=== PATIENT | female | born 1950 | race Caucasian/White ===

== ENCOUNTER 2019-08-29 17:55 | Inpatient (IN) | payer OTHER ==
[~2019-08-29] VITALS: Ht 170.2 cm; Wt 76.5 kg
[~2019-08-29 17:55] MED LIST: ALEN70 PO; Augmentin 875-1 EACH PO; Bactrim Ds Tab1 EACH PO; CYAN1000I; CYAN500 PO; CYCL0.05OP BOTHEYES; Cleocin HCl300 MG PO; DIALYVITE 800-1 EACH; FEROSUL325 MG PO; FISH1000 PO; FURO40 PO; Flecainide Acet50 MG; GENTEAL TEARS1 EACH BOTHEYES; LEVSOD25 PO; MERIBIN5 M1 PO; POTCHL20ER PO; Percocet 5-3251 EACH PO; SUPER CALCIUM1 EACH PO; Tylenol325 MG PO; VITAMIN D350 MCG PO; Vitamin C100 MG PO; WARF5; XARELTO20 MG; XARELTO20 MG PO; [UNRECOGNIZED DRUG - OTHER]; [UNRECOGNIZED DRUG - OTHER] PO
[2019-08-29 18:31] LABS: BASOPHILS ABSOLUTE AUTO 0.03 K/mm3 (0.00-0.23); BASOPHILS PERCENT AUTO 0 % (0-2); EOSINOPHILS ABSOLUTE AUTO 0.02 K/mm3 (0.00-0.68); EOSINOPHILS PERCENT AUTO 0 % (0-6); Hematocrit 26.8 % (33.0-51.0); Hemoglobin 8.8 g/dL (11.5-16.0); IMMATURE GRAN ABSOLUTE AUTO 0.03 K/mm3 (0.00-0.10); IMMATURE GRAN PERCENT AUTO 0 % (0-1); LYMPHOCYTES ABSOLUTE AUTO 1.43 K/mm3 (0.84-5.20); LYMPHOCYTES PERCENT AUTO 14 % (21-46); MONOCYTES ABSOLUTE AUTO 0.65 K/mm3 (0.16-1.47); MONOCYTES PERCENT AUTO 7 % (4-13); Mean Corpuscular HGB 33.1 pg (26.0-34.0); Mean Corpuscular HGB Conc 32.8 g/dL (31.5-36.5); Mean Corpuscular Volume 101 fL (80-100); NEUTROPHILS ABSOLUTE AUTO 7.76 K/mm3 (1.96-9.15); NEUTROPHILS PERCENT AUTO 78 % (41-73); Platelet Count 336 K/mm3 (150-400); RDW Coefficient Variation 14.5 % (11.7-14.2); RDW Standard Deviation 52.5 fL (35.1-46.3); Red Blood Cell Count 2.66 M/mm3 (3.80-5.20); White Blood Cell Count 9.92 K/mm3 (4.00-11.30)
[2019-08-29 18:52] LABS: Albumin, Blood 2.5 g/dL (3.4-5.0); Albumin/Globulin Ratio 0.8 (0.8-1.8); Bilirubin, Total 0.9 mg/dL (0.1-1.0); Bun/Creatinine Ratio 11.9 (12.0-20.0); Calcium, Blood 7.4 mg/dL (8.5-10.1); Creatinine, Blood 1.43 mg/dL (0.40-1.00); Globulin, Blood 3.1 g/dL (2.2-4.0); Potassium, Blood 3.4 mmol/L (3.5-5.5); Total Protein, Blood 5.6 g/dL (6.4-8.2)
[2019-08-29 20:35] LABS: International Normalized Ratio No Calc
[2019-08-29 20:36] LABS: Prothrombin Time Results >90.0 Sec (9.7-11.5)
[2019-08-29] MEDS ORDERED: KRILL OIL 3501 EACH PO (21:51)
[2019-08-29] MEDS ORDERED: Super B-50 Com1 EACH PO (21:51)
[2019-08-29] MEDS ORDERED: MELATONIN5 M1 PO (21:52)
[2019-08-29] MEDS ORDERED: IBUP600 (23:06)
[2019-08-29] MEDS ORDERED: ACET325 PO (23:07)
--- NOTE | 2019-08-30 03:59 | NUR ---
ASSUMED CARE OF PATIENT AT APPROXIMATELY 2255 FROM ED KEMAL OSEUGERA. PATIENT ARRIVED TO UNIT VIA STRETCHER; TRANSFER FROM ED STRETCHER TO PCU STRETCHER WITH SLIDE SHEET AND FOUR STAFF. PATIENT ALERT AND ORIENTED X4; WEAK. TAY HAS HEMATOMA ON LEFT LEG; SEE PHOTOS IN CHART; BRUSING AND BANDAGE ON CHIN; REPORTS SEVERAL STITCHES PLACED BEFORE ARRIVAL TO ED AND ABRASION ON LEFT KNEE; SEE PHOTOS. PATIENT REPORTS PAIN 5-7/10; MEDICATED PER EMAR. PATIENT REPORTS PAIN IS TOLERABLE WHEN SHE IS NOT GOLD OR SHAKING FROM BEING COLD. 4TH UNIT OF [facility] INFUSING; HOME HEALTH CARE WORKER DIANE AND KEMAL Bhatti ASSISTED WITH HANGING AND DOCUMENTING ADMINISTRATION. 1X PIV. PATIENT REPORTS SOME MILD DIFFICULTY SWALLOWING SINCE FALL. PATIENT REPORTS HER GLANDS IN HER NECK AND BEEN SWOLLEN OFF AND ON FOR THE PAST 1.5 MONTHS. PATIENT REPORTS SHE IS NORMALLY INDEPENDENT AT HOME; CAREGIVER WORK. USING A WALKER SINCE FALL YESTERDAY. AFIB ON TELE; OXYGEN SATURATION ABOVE 90% ON ROOM AIR. PATIENT REPORTS BLOOD PRESSURE NORMALLY LOW. ADMISSION COMPLETE. PATIENT CURRENTLY RESTING IN BED; CALL LIGHT IN REACH; BED IN LOWEST POSISTION; BED ALARM ON; WILL CONTINUE TO MONITOR AND ASSESS UNTIL END OF SHIFT.
--- NOTE | 2019-08-30 06:10 | NUR ---
NO ACUTE CHANGES TO REPORT. BLOOD PRESSURE IMPROVED AFTER 4TH FFP. PATIENT SLEPT ABOUT THREE HOURS OFF AND ON; PATIENT HAD NOT URINATED SINCE ARRIVAL; BEDPAN ATTEMPTED; PAD HAD SMALL AMOUNT OF URINE; UNABLE TO VOID ON BEDPAN; PATIENT REPORTS TOO HARD ON HER BUTT. BLADDER SCAN SHOWS 278MLS; PATIENT TO CALL WHEN SHE FEELS SHE NEEDS TO VOID. WILL CONTINUE TO MONITOR AND ASSESS UNTIL END OF SHIFT.
[2019-08-30 06:14] LABS: BASOPHILS ABSOLUTE AUTO 0.01 K/mm3 (0.00-0.23); BASOPHILS PERCENT AUTO 0 % (0-2); EOSINOPHILS ABSOLUTE AUTO 0.07 K/mm3 (0.00-0.68); EOSINOPHILS PERCENT AUTO 1 % (0-6); Hematocrit 20.2 % (33.0-51.0); Hemoglobin 6.6 g/dL (11.5-16.0); IMMATURE GRAN ABSOLUTE AUTO 0.05 K/mm3 (0.00-0.10); IMMATURE GRAN PERCENT AUTO 1 % (0-1); LYMPHOCYTES PERCENT AUTO 18 % (21-46); MONOCYTES ABSOLUTE AUTO 0.45 K/mm3 (0.16-1.47); MONOCYTES PERCENT AUTO 7 % (4-13); Mean Corpuscular HGB 33.3 pg (26.0-34.0); Mean Corpuscular HGB Conc 32.7 g/dL (31.5-36.5); Mean Corpuscular Volume 102 fL (80-100); Mean Platelet Volume 10.2 fL (9.1-12.4); NEUTROPHILS ABSOLUTE AUTO 4.92 K/mm3 (1.96-9.15); NEUTROPHILS PERCENT AUTO 74 % (41-73); Platelet Count 235 K/mm3 (150-400); RDW Coefficient Variation 14.4 % (11.7-14.2); RDW Standard Deviation 52.5 fL (35.1-46.3); Red Blood Cell Count 1.98 M/mm3 (3.80-5.20)
[2019-08-30 06:27] LABS: International Normalized Ratio 1.36
--- NOTE | 2019-08-30 06:33 | NUR ---
CALLED DR. DAMON TO REPORTS HEMOGLOBIN DROP FROM 8.8 TO 6.6; ORDERS FOR 2 UNIT RBC; HOLD OFF ON RESTARTING LASIX AT THIS TIME. WILL CONTINUE TO MONITOR AND ASSESS UNTIL END OF SHIFT.
[2019-08-30 06:34] LABS: Calcium, Blood 7.3 mg/dL (8.5-10.1); Creatinine, Blood 1.33 mg/dL (0.40-1.00); Potassium, Blood 3.3 mmol/L (3.5-5.5)
--- NOTE | 2019-08-30 08:07 | NUR ---
pt laying in bed awake, talkative, some confusion noted, was speaking about her sister having prostate cancer, but when we talked about it, she realized what she said and changed it to pancreatic cancer, follows commands well, states her leg hurts when she moves it, but it is ok right now. lungs are clear t/o, resp even and unlabored, no cough noted, hrirr, tele in place running afib per monitor, see strip, 3+ edema noted to left foot, soft, she reports it always swells from an old injury, large hematoma noted to left goodman, with small dressing in place, chin also has a hematoma, iv to left ac, site is clear and patent, btx4, abd flat soft nontender, voids without diff, skin as noted, rob mccatrhy, call light in reach.
--- NOTE | 2019-08-30 13:30 | NUR ---
PT DOING OK, RECIEVING TRANSFUSION, TOLERATING WELL. NO COMPLAINTS. DOES RUN A LOW GRADE TEMP BUT HEATER IN ROOM IS ON HIGH, AND SHE HAS SEVERAL BLANKETS. CALL LIGHT IN REACH.
--- NOTE | 2019-08-30 15:45 | NUR ---
PT COMPLAINING ABOUT NECK PAIN. SHE REQUESTED TYLENOL, ALSO GAVE HER A ROLLED TOWEL FOR COMFORT. CALL LIGHT IN REACH.
[2019-08-30 17:17] LABS: International Normalized Ratio 1.19; Prothrombin Time Results 12.4 Sec (9.7-11.5)
--- NOTE | 2019-08-30 18:14 | NUR ---
PT UP TO BSC, DOING OK, STATES HER NECK PAIN IS MUCH BETTER, DOWN TO A 2/10. NO FURTHER CHANGES, CALL LIGHT IN REACH.
[2019-08-31 04:24] LABS: BASOPHILS ABSOLUTE AUTO 0.03 K/mm3 (0.00-0.23); BASOPHILS PERCENT AUTO 0 % (0-2); EOSINOPHILS ABSOLUTE AUTO 0.08 K/mm3 (0.00-0.68); EOSINOPHILS PERCENT AUTO 1 % (0-6); Hematocrit 27.8 % (33.0-51.0); Hemoglobin 9.2 g/dL (11.5-16.0); IMMATURE GRAN ABSOLUTE AUTO 0.05 K/mm3 (0.00-0.10); IMMATURE GRAN PERCENT AUTO 1 % (0-1); LYMPHOCYTES ABSOLUTE AUTO 1.19 K/mm3 (0.84-5.20); LYMPHOCYTES PERCENT AUTO 15 % (21-46); MONOCYTES PERCENT AUTO 8 % (4-13); Mean Corpuscular HGB 31.7 pg (26.0-34.0); Mean Corpuscular HGB Conc 33.1 g/dL (31.5-36.5); Mean Platelet Volume 10.1 fL (9.1-12.4); NEUTROPHILS ABSOLUTE AUTO 5.95 K/mm3 (1.96-9.15); NEUTROPHILS PERCENT AUTO 75 % (41-73); NRBC ABSOLUTE 0.02 K/mm3 (0.00-0.02); NRBC Auto 0.3 /100 WBC (0.0-0.2); Platelet Count 253 K/mm3 (150-400); RDW Coefficient Variation 18.4 % (11.7-14.2); RDW Standard Deviation 63.7 fL (35.1-46.3)
[2019-08-31 04:33] LABS: Mean Corpuscular Volume 96 fL (80-100)
[2019-08-31 04:40] LABS: International Normalized Ratio 1.11; Prothrombin Time Results 11.7 Sec (9.7-11.5)
--- NOTE | 2019-08-31 05:39 | NUR ---
SHIFT SUMMARY PT RESTING IN ROOM COMFORTABLY AT THIS TIME. NO ACUTE CHANGES IN STATUS T/O NIGHT. TP SLEPT WELL AND DENIED NEEDS T/O NIGHT. PT DENIED ANY CP OR SOB. HEMATOMA NOTED BY PT TO BE MUCH SMALLER THAN PREVIOUS DAY. PT HAS L LEG ELEVATED ON PILLOW TO REDUCE SWELLING. BRUISING NOTED TO CHIN, SUTURE REMAIN WNL. RESP EVEN UNLABORED ON RA W/ SATS >92%. PT ABLE TO GET UP TO BSC W/ SBA. DENIES OTHER NEEDS AT THIS TIME. CALL LIGHT IN REACH.
--- NOTE | 2019-08-31 09:24 | NUR ---
Vilma denies pain this morning, states that she slept very well, and is feeling good after having 2 bowel movements. STates her abdominal distention is still present, but resolving. She ate breakfast with a good appetite. Dr. Caro was here this morning, states to keep watching the left lower extremity and to leave on the taped bandage to avoid any accidental skin tears, to keep skin intact if at all possible. NO plan to evacuate the liquid which is under the skin at this time. Pt states that the swelling of the left lower leg has improved quite quite a bit. She states that she has been able to get up and go to the bedside commode on her own. Dietary consult was ordered after Dr. Mckeon's note was noted.
--- NOTE | 2019-08-31 14:48 | NUR ---
The pt remains without complaints of discomfort or pain. She is on bedrest, with assistance to the bedside commode as needed. She sat up in on the chair for a sponge bath this morning. At this time, left leg is elevated on 2 pillows while in bed, and ice pack to her sore right shoulder for comfort. She states that it is helping.
--- NOTE | 2019-08-31 15:43 | NUR ---
Upon receiving an admit referral for spiritual care, I visit patient. Patient is sitting up in bed and alert. Patient openly shares about the events that led to her hospitalization and how thankful she is for the discoveries that were made that will help her have increased health in the furture. Patient tells me about her careers, her relationship history and her spiritual journey. Patient is strong and resilient. I listen empathically, provide companionship, pastoral newspaper delivery counselor and prayer. Patient responds well and shows signs of restored luisa. I will continue to remain available to patient and family.
[2019-09-01 04:10] LABS: BASOPHILS ABSOLUTE AUTO 0.05 K/mm3 (0.00-0.23); BASOPHILS PERCENT AUTO 1 % (0-2); EOSINOPHILS ABSOLUTE AUTO 0.12 K/mm3 (0.00-0.68); EOSINOPHILS PERCENT AUTO 2 % (0-6); Hematocrit 28.4 % (33.0-51.0); Hemoglobin 9.4 g/dL (11.5-16.0); IMMATURE GRAN ABSOLUTE AUTO 0.05 K/mm3 (0.00-0.10); IMMATURE GRAN PERCENT AUTO 1 % (0-1); LYMPHOCYTES ABSOLUTE AUTO 1.27 K/mm3 (0.84-5.20); LYMPHOCYTES PERCENT AUTO 16 % (21-46); MONOCYTES ABSOLUTE AUTO 0.59 K/mm3 (0.16-1.47); MONOCYTES PERCENT AUTO 7 % (4-13); Mean Corpuscular HGB 32.2 pg (26.0-34.0); Mean Corpuscular HGB Conc 33.1 g/dL (31.5-36.5); Mean Corpuscular Volume 97 fL (80-100); Mean Platelet Volume 10.5 fL (9.1-12.4); NEUTROPHILS ABSOLUTE AUTO 5.85 K/mm3 (1.96-9.15); NEUTROPHILS PERCENT AUTO 74 % (41-73); Platelet Count 261 K/mm3 (150-400); RDW Coefficient Variation 17.1 % (11.7-14.2); RDW Standard Deviation 60.3 fL (35.1-46.3); Red Blood Cell Count 2.92 M/mm3 (3.80-5.20); White Blood Cell Count 7.93 K/mm3 (4.00-11.30)
[2019-09-01 04:25] LABS: International Normalized Ratio 1.08; Prothrombin Time Results 11.4 Sec (9.7-11.5)
--- NOTE | 2019-09-01 05:58 | NUR ---
SHIFT SUMMARY PT SLEEPING IN ROOM COMFORTABLY AT THIS TIME. NO ACUTE CNAHGES IN STATUS T/O NIGHT. PT SLEPT WELL, DENIED ANY CP OR SB T/O NIGHT. RESP EVEN UNLABORED ON RA W/ SATS >92%. PT L LEG ELEVATED ON PILLOW TO REDUCE SWELLING. HEMATOMA ON L LEG HAD REDUCED IN SIZE SIGNIFICANTLY OVER TWO NIGHTS. PT DID C/O SOME TENDERNESS TO RIGHT HEEL D/T USING R FOOT TO PUSH OFF OF BED AND MOVE HERSELF. HEEL PROTECTOR PLACED, D/T SOME REDNESS NOTED TO AREA. PT DENIES OTHER NEEDS. CALL LIGHT IN REACH
[2019-09-01] MEDS ORDERED: XARELTO20 MG PO (08:29)
--- NOTE | 2019-09-01 10:00 | NUR ---
REPORT FROM FABIEN SOMMER. ASSUMED PT CARE.
--- NOTE | 2019-09-01 10:54 | NUR ---
TELE REMOVED AND RETURNED. IV TO RIGHT FA REMOVED, TIP INTACT, DRESSING PLACED.
--- NOTE | 2019-09-01 11:11 | NUR ---
Patient is sitting up in bed and alert and welcomes me into the room. I provide companionship and prayer. Patient responds well and displays evidence of restored luisa as she talks about increasing her prayers and returning to roman catholic. I will continue to remain available to patient and family.
--- NOTE | 2019-09-01 12:42 | NUR ---
PT DC HOME WITH . REVIEWED INSTRUCTIONS, ALL BELONGINGS GATHERED AND SENT HOME. PT ESCORTED TO LOBBY VIA .
== END 2019-09-01 12:48 | disposition home or self-care (01) | DRG 813 ==
LOC: ER 17:55 → PCU 21:15
PROVIDERS: Emergency Medicine; Hospitalist; Internal Medicine Hematology & Oncology; ADMIT Family Medicine
PROC: 30233L1 Transfusion of Nonautologous Fresh Plasma into Peripheral Vein, Percutaneous Approach (ICD-10-PCS; principal; 2019-08-30)
PROC: 30233N1 Transfusion of Nonautologous Red Blood Cells into Peripheral Vein, Percutaneous Approach (ICD-10-PCS; 2019-08-30)
DX: D68.9 Coagulation defect, unspecified (principal); D62 Acute posthemorrhagic anemia; E87.1 Hypo-osmolality and hyponatremia; S80.12XA Contusion of left lower leg, initial encounter; X58.XXXA Exposure to other specified factors, initial encounter; I48.91 Unspecified atrial fibrillation; N18.3 Chronic kidney disease, stage 3 (moderate); W19.XXXA Unspecified fall, initial encounter; E87.6 Hypokalemia; E03.9 Hypothyroidism, unspecified; Z79.01 Long term (current) use of anticoagulants; Z98.84 Bariatric surgery status
CPT/HCPCS: 36415; 36430; 70450; 70486; 72125; 80048; 80053; 85018; 85025; 85384; 85610; 85730; 86850; 86900; 86901; 86923; 93005; 93010; 96365; 99285-25; A9270; J3430; J3480; P9016; P9059

== ENCOUNTER 2019-09-11 10:41 | Inpatient (IN) | payer OTHER ==
[~2019-09-11] VITALS: Ht 172.7 cm; Wt 81.1 kg
[~2019-09-11 10:41] MED LIST changes: +ACET325 PO; +IBUP600; +KRILL OIL 3501 EACH PO; +MELATONIN5 M1 PO; +Super B-50 Com1 EACH PO
[2019-09-11] MEDS ORDERED: XARELTO20 MG (11:35)
--- NOTE | 2019-09-11 11:43 | NUR ---
PT TRANSEFRRED TO SDS VIA W/C. History, Chart, Medications and Allergies reviewed before start of procedure.Lungs clear T/O to Auscultation. Patient confirms NPO status and agrees with scheduled surgery. Patient States Post-Procedure ride home has been arranged.
--- NOTE | 2019-09-11 12:36 | NUR ---
PT TAKEN TO XRAY BY [employer] [facility]IA [employer].
--- NOTE | 2019-09-11 12:49 | NUR ---
PT RETURNED FROM XRAY.
--- NOTE | 2019-09-11 14:35 | NUR ---
SURGERY WAS DELAYED DUE TO WAITING FOR UPDATED H&P TO ARRIVE THROUGH DEVELOPMENT TECHNICAL LEAD.
[2019-09-11 16:12] LABS: Hematocrit 30.6 % (33.0-51.0); Mean Corpuscular HGB 33.2 pg (26.0-34.0); Mean Corpuscular HGB Conc 32.7 g/dL (31.5-36.5); Mean Platelet Volume 9.6 fL (9.1-12.4); Platelet Count 360 K/mm3 (150-400); RDW Coefficient Variation 17.6 % (11.7-14.2); RDW Standard Deviation 64.8 fL (35.1-46.3); Red Blood Cell Count 3.01 M/mm3 (3.80-5.20); White Blood Cell Count 8.22 K/mm3 (4.00-11.30)
[2019-09-11 16:13] LABS: Mean Corpuscular Volume 102 fL (80-100)
--- NOTE | 2019-09-11 16:27 | NUR ---
PATIENT PERMISSION PATIENT GAVE THIS STUDENT NURSE PERMISSION TO OBSERVE AND PROVIDE CARE ON 09/11/2019 FROM [id number]. FOLLOWED PATIENT FROM OR TO PACU TO SURGICAL FLOOR.
[2019-09-11 16:34] LABS: Bun/Creatinine Ratio 11.8 (12.0-20.0); Calcium, Blood 7.6 mg/dL (8.5-10.1); Creatinine, Blood 1.27 mg/dL (0.40-1.00); Potassium, Blood 2.8 mmol/L (3.5-5.5)
[2019-09-12 04:15] LABS: BASOPHILS ABSOLUTE AUTO 0.01 K/mm3 (0.00-0.23); BASOPHILS PERCENT AUTO 0 % (0-2); EOSINOPHILS PERCENT AUTO 0 % (0-6); Hematocrit 27.5 % (33.0-51.0); Hemoglobin 8.9 g/dL (11.5-16.0); IMMATURE GRAN ABSOLUTE AUTO 0.04 K/mm3 (0.00-0.10); IMMATURE GRAN PERCENT AUTO 1 % (0-1); LYMPHOCYTES PERCENT AUTO 9 % (21-46); MONOCYTES ABSOLUTE AUTO 0.54 K/mm3 (0.16-1.47); MONOCYTES PERCENT AUTO 6 % (4-13); Mean Corpuscular HGB 32.4 pg (26.0-34.0); Mean Corpuscular HGB Conc 32.4 g/dL (31.5-36.5); Mean Corpuscular Volume 100 fL (80-100); Mean Platelet Volume 9.8 fL (9.1-12.4); NEUTROPHILS ABSOLUTE AUTO 7.15 K/mm3 (1.96-9.15); NEUTROPHILS PERCENT AUTO 84 % (41-73); Platelet Count 335 K/mm3 (150-400); RDW Coefficient Variation 17.6 % (11.7-14.2); RDW Standard Deviation 63.4 fL (35.1-46.3); Red Blood Cell Count 2.75 M/mm3 (3.80-5.20); White Blood Cell Count 8.54 K/mm3 (4.00-11.30)
--- NOTE | 2019-09-12 04:26 | NUR ---
SHIFT SUMMARY: PT POD #1 FOR I&D TO LLE. A&O X4. VS WNL- BP ON LOW SIDE, HOWEVER PT STATES THIS IS WNL FOR HER. WOUND VAC IN PLACE WITH FOAM COMPRESSED. DRAINING SEROSANGUINOUS FLUID. SKIN AROUND DRESSING SOFT. PULSES PALPABLE. CAP REFILL WNL. 3+ PITTING EDEMA NOTED TO BLE. PT DENIES N/T. PT WITH MULT BRUISES T/O. PT DENIES NEED FOR PAIN MEDICATION T/O NIGHT. OOB TO BATHROOM WITH SBA ASSIST. VOIDING WELL. AGUSTINA PO. FLUIDS INFUSING PER ORDERS.
[2019-09-12 04:29] LABS: International Normalized Ratio 1.17; Prothrombin Time Results 12.4 Sec (9.7-11.5)
[2019-09-12 04:36] LABS: Calcium, Blood 7.2 mg/dL (8.5-10.1); Creatinine, Blood 1.33 mg/dL (0.40-1.00); Potassium, Blood 3.4 mmol/L (3.5-5.5)
--- NOTE | 2019-09-12 13:56 | NUR ---
Patient is sitting up in bed and alert. Patient tells me that she is glad I came in for a visit. Patient tells me about the procedure that she had and about what the recovery may include going forward. Patient timuro gives me an up date on her sister's coy with cancer. I listen empathically and provide companionship and a calming presence. Other disciplines came in candace's room, so I cut my visit short.
--- NOTE | 2019-09-12 15:50 | NUR ---
AFTER ENTERING ROOM WITH ASSIGNED PRIMARY RN, ASKED PATIENT IF I COULD BE INVOLVED IN HER CARE AND ACCESS HER CHART TO WHICH SHE AGREED
--- NOTE | 2019-09-12 19:28 | NUR ---
SHIFT SUMMARY PT HAS DONE WELL TODAY. WORKED WITH THERAPY. PAIN WELL MANAGED WITH TYLENOL. VAC WNL. VOIDING WELL. EATING/DRINKING WELL. EDEMA SLIGHTLY BETTER.
--- NOTE | 2019-09-13 05:35 | NUR ---
SHIFT SUMMARY: NO ACUTE CHANGES THIS SHIFT. WOUND VAC CDI AND DRAINING SANGUINOUS FLUID. PT REMAINS EDEMATOUS WITH 3-4+ PITTING EDMEA TO BILATERAL FEET. CEFAZOLIN D/C WITH NEW ORDERS FOR ZOSYN. PT ALSO GIVEN VANCO X1. SALINE LOCKED IN BETWEEN ABX. AGUSTINA PO. VOIDING WELL. SBA FOR ALL TRANSFERS. PAIN IS TOLERABLE AND PT DENIES NEED FOR PAIN MEDICATION.
--- NOTE | 2019-09-13 07:20 | NUR ---
Pt awake stated min pain wound vac to goodman stated the bruises have become supervisor polishing to her face offered pain meds pt declined
--- NOTE | 2019-09-13 15:00 | NUR ---
dr العراقي by to see pt wound vac changed to hold off on putting a picc line poss oral meds awaiting cx and consult dr zamorano
--- NOTE | 2019-09-13 15:24 | NUR ---
Patient is lying in bed and alert. Patient openly shares with me about the her current medical issues and how things are coming along. Patient expresses that she is thankful that the infection is not in her bones. Patient talks about her concern going forward with her main concern being that she does not want to be placed in a rehab. facility. 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 We talk about the spiritual life and her thoughts on God. I listen empathically and provide companionship, pastoral rehab/pre vocational counselor and prayer. Patient responds well and voices gratitude for the visit. I will available to patient and family.
--- NOTE | 2019-09-13 17:00 | NUR ---
DR GOMEZ UNAVILABLE FOR INPT CONSULT DR ALDRICH NOTIFIED ALSO CALLED HIS OFFICE UNABLE TO TALK WITH NOÉ BUT TALKED WITH DESK WILL CALL AGAIN IN AM MESSAGE LEFT ON CONSULT LINE WITH DR ALDRICH CELL NUMBER
[2019-09-14] MEDS ORDERED: DOCU100 PO (11:18)
[2019-09-14] MEDS ORDERED: HYDR1TAB94 PO (11:21)
[2019-09-14] MEDS ORDERED: ONDA4ODT MM (11:21)
[2019-09-14] MEDS ORDERED: Florastor250 MG PO (11:22)
[2019-09-14] MEDS ORDERED: AMOCLA875 PO (11:22)
--- NOTE | 2019-09-14 17:01 | NUR ---
DISCHARGE: PACKET PRINTED AND PT EDUCATED BY GILES GURROLA RN. WOUND VAC FOR HOME IN PLACE. PT LEFT UNIT VIA WHEELCHAIR WITH FAMILY.
== END 2019-09-14 14:07 | disposition home or self-care (01) | DRG 863 ==
LOC: ORD 10:41 → ORSCMMR 10:42 → ORD 12:30 → SURS 15:55 → ORD 15:56 → SURS 09-13 12:22
PROVIDERS: Internal Medicine; ADMIT Orthopaedic Surgery
PROC: 0J9P3ZX Drainage of Left Lower Leg Subcutaneous Tissue and Fascia, Percutaneous Approach, Diagnostic (ICD-10-PCS; 2019-09-11)
PROC: 0HCLXZZ Extirpation of Matter from Left Lower Leg Skin, External Approach (ICD-10-PCS; principal; 2019-09-11 12:30)
DX: T81.41XA Infection following a procedure, superficial incisional surgical site, initial encounter (principal); L08.9 Local infection of the skin and subcutaneous tissue, unspecified; S80.12XA Contusion of left lower leg, initial encounter; E87.6 Hypokalemia; I48.91 Unspecified atrial fibrillation; N18.3 Chronic kidney disease, stage 3 (moderate); B95.61 Methicillin susceptible Staphylococcus aureus infection as the cause of diseases classified elsewhere
CPT/HCPCS: 36415; 73590; 80048; 85025; 85027; 85610; 87070; 87075; 87077; 87147; 87186; 87205; 96365; 96366; 96367; 96368; 96376; 97116; 97162; A9270; A9270-GY; G0378; J0690; J1100; J2405; J2543; J2704; J3010; J3370; J7030; J7050; J7120

== ENCOUNTER 2019-11-08 00:35 | Day surgery (SDC) | payer OTHER ==
[~2019-11-08 00:35] MED LIST changes: +AMOCLA875 PO; +DOCU100 PO; -FEROSUL325 MG PO; +Florastor250 MG PO; +HYDR1TAB94 PO; -LEVSOD25 PO; +ONDA4ODT MM; -POTCHL20ER PO; -SUPER CALCIUM1 EACH PO
== END 2019-11-08 22:38 | disposition home or self-care (01) ==
LOC: WOUND 00:35
DX: T81.89XA Other complications of procedures, not elsewhere classified, initial encounter (principal); L97.822 Non-pressure chronic ulcer of other part of left lower leg with fat layer exposed; E03.9 Hypothyroidism, unspecified; N18.9 Chronic kidney disease, unspecified; K76.0 Fatty (change of) liver, not elsewhere classified; Y83.8 Other surgical procedures as the cause of abnormal reaction of the patient, or of later complication, without mention of misadventure at the time of the procedure

== ENCOUNTER 2019-11-15 14:18 | Inpatient (IN) | payer OTHER ==
[~2019-11-15] VITALS: Ht 172.7 cm; Wt 89.5 kg
[2019-11-15 14:59] LABS: BASOPHILS ABSOLUTE AUTO 0.03 K/mm3 (0.00-0.23); BASOPHILS PERCENT AUTO 0 % (0-2); EOSINOPHILS PERCENT AUTO 0 % (0-6); Hematocrit 32.5 % (33.0-51.0); Hemoglobin 10.6 g/dL (11.5-16.0); IMMATURE GRAN ABSOLUTE AUTO 0.07 K/mm3 (0.00-0.10); IMMATURE GRAN PERCENT AUTO 1 % (0-1); LYMPHOCYTES ABSOLUTE AUTO 0.33 K/mm3 (0.84-5.20); LYMPHOCYTES PERCENT AUTO 3 % (21-46); MONOCYTES ABSOLUTE AUTO 0.25 K/mm3 (0.16-1.47); MONOCYTES PERCENT AUTO 2 % (4-13); Mean Corpuscular HGB 32.9 pg (26.0-34.0); Mean Corpuscular HGB Conc 32.6 g/dL (31.5-36.5); Mean Corpuscular Volume 101 fL (80-100); Mean Platelet Volume 10.4 fL (9.1-12.4); NEUTROPHILS ABSOLUTE AUTO 12.72 K/mm3 (1.96-9.15); NEUTROPHILS PERCENT AUTO 95 % (41-73); Platelet Count 387 K/mm3 (150-400); RDW Standard Deviation 58.3 fL (35.1-46.3); Red Blood Cell Count 3.22 M/mm3 (3.80-5.20)
[2019-11-15 15:15] LABS: International Normalized Ratio 1.58; Prothrombin Time Results 16.5 Sec (9.7-11.5)
[2019-11-15 15:28] LABS: Albumin, Blood 1.8 g/dL (3.4-5.0); Albumin/Globulin Ratio 0.4 (0.8-1.8); Bilirubin, Total 0.9 mg/dL (0.1-1.0); Bun/Creatinine Ratio 16.5 (12.0-20.0); Calcium, Blood 8.2 mg/dL (8.5-10.1); Creatinine, Blood 1.82 mg/dL (0.40-1.00); Globulin, Blood 4.3 g/dL (2.2-4.0); Potassium, Blood 3.8 mmol/L (3.5-5.5); Total Protein, Blood 6.1 g/dL (6.4-8.2)
[2019-11-15] MEDS ORDERED: LEVSOD50 PO (15:33)
[2019-11-15] MEDS ORDERED: SUPER CALCIUM1 EACH PO (15:34)
[2019-11-15] MEDS ORDERED: FEROSUL325 MG PO (15:34)
[2019-11-15] MEDS ORDERED: XARELTO20 MG PO (15:36)
[2019-11-15] MEDS ORDERED: SPIRONOLACTONE25 MG PO (15:40)
[2019-11-15] MEDS ORDERED: Bumetanide1 MG PO (15:41)
[2019-11-15] MEDS ORDERED: POTCHL20ER PO (15:42)
[2019-11-15 17:05] LABS: Source, Urine Catheter
[2019-11-15 17:22] LABS: Appearance, Urine Hazy (Clear); Bilirubin, Urine Neg (Neg); Blood, Urine 1+ (Neg); Color, Urine Yellow (P-Yellow); Glucose Qualitative, Urine Neg (Neg); Ketones, Urine Neg (Neg); Leukocyte Esterase, Urine 1+ (Neg); Nitrite, Urine Neg (Neg); Protein, Urine Neg (Neg); Urobilinogen, Urine NORM (Normal)
[2019-11-15 17:30] LABS: Bacteria Many /hpf; Calcium Oxalate Crystals Mod /hpf; Red Blood Cells, Urine 0-2 /hpf (0-2); Squamous Epithelial Cells Few /hpf (Few)
--- NOTE | 2019-11-15 20:00 | NUR ---
ASSUMED PT CARE AT 1945 PT ARRIVED ON UNIT SECONDARY TO SEPSIS WITH HYPOTENSION. LEVOPHED INFUSING VIA CENTRAL LINE TO RIGHT SUBCLAVIAN AT 20MCG/MIN. SBP'S 70'S-80'S. PT ALERT AND ORIENTED AND ABLE TO MAKE NEEDS KNOWN. PT IN AFIB WITH HR 90-100'S. TEMP CLAYTON PROBE PATENT AND DRAINING TO GRAVITY; TMAX 100.4. WOUND VAC PATENT AND RUNNING AT 120MMHG TO LEFT CONDON. PT ORIENTED TO ROOM. NO FAMILY AT BEDSIDE. CALL LIGHT WITHIN REACH.
[2019-11-16 03:55] LABS: Hematocrit 28.1 % (33.0-51.0); Hemoglobin 9.1 g/dL (11.5-16.0); Mean Corpuscular HGB 32.6 pg (26.0-34.0); Mean Corpuscular HGB Conc 32.4 g/dL (31.5-36.5); Mean Corpuscular Volume 101 fL (80-100); Mean Platelet Volume 10.3 fL (9.1-12.4); Platelet Count 407 K/mm3 (150-400); RDW Standard Deviation 59.3 fL (35.1-46.3); Red Blood Cell Count 2.79 M/mm3 (3.80-5.20); White Blood Cell Count 18.26 K/mm3 (4.00-11.30)
[2019-11-16 04:10] LABS: International Normalized Ratio 2.67
[2019-11-16 04:19] LABS: Alanine Aminotransfer (ALT/SGP 28 U/L (12-78); Albumin, Blood 1.5 g/dL (3.4-5.0); Albumin/Globulin Ratio 0.4 (0.8-1.8); Alk Phos 67 U/L (50-136); Anion Gap 7 mmol/L (6-16); Aspartate Aminotrans (AST/SGOT 42 U/L (12-37); Bilirubin, Total 0.7 mg/dL (0.1-1.0); Blood Urea Nitrogen 29 mg/dL (8-24); CO2, Blood 28 mmol/L (21-32); Calcium, Blood 7.1 mg/dL (8.5-10.1); Chloride, Blood 99 mmol/L (98-108); Creatinine, Blood 1.71 mg/dL (0.40-1.00); Globulin, Blood 3.9 g/dL (2.2-4.0); Glomerular Filtration Rate 31 (60-); Glucose, Blood 205 mg/dL (70-99); Potassium, Blood 3.3 mmol/L (3.5-5.5); Sodium, Blood 134 mmol/L (136-145); Total Protein, Blood 5.4 g/dL (6.4-8.2); Vancomycin, Random 9.9 ug/mL
[2019-11-16 04:24] LABS: BAND PERCENT MAN 27 % (0-8); BASOPHILS PERCENT MAN 0 % (0-2); EOSINOPHILS PERCENT MAN 0 % (0-6); LYMPHOCYTES ABSOLUTE MAN 0.54 K/mm3 (0.84-5.20); LYMPHOCYTES PERCENT MAN 3 % (21-46); METAMYELOCYTE ABSOLUTE MAN 0.18 K/mm3 (0.00-0.00); METAMYELOCYTE PERCENT MAN 1 % (0-0); MONOCYTES ABSOLUTE MAN 0.36 K/mm3 (0.16-1.47); MONOCYTES PERCENT MAN 2 % (4-13); NEUTROPHILS ABSOLUTE MAN 17.16 K/mm3 (1.96-9.15); SEG NEUTROPHILS PERCENT MAN 67 % (41-73); TOTAL CELLS COUNTED 100
--- NOTE | 2019-11-16 06:30 | NUR ---
END OF SHIFT SUMMARY PT REMAINS ON LEVOPHED AT 17MCG/MIN AND VASOPRESSIN AT 0.04UNITS/MIN. SBP'S 80-90'S WITH MAP'S GREATER THAN 60 MMHG. CENTRAL LINE TO RIGHT SUBCLAVIAN. PT REMAINS ALERT AND ORIENTED AND ABLE TO MAKE HER NEEDS KNOWN. PT HAS HAD THREE LOOSE STOOLS THIS SHIFT; SENT C.DIFF PER ORDERS AND RESULTS CAME BACK NEGATIVE. PT IS INCONTINENT OF STOOL AND HAS A CLAYTON CATHETER PATENT AND DRAINING TO GRAVITY; DARK, JAYA IN COLOR. PT REMAINS VERY EDEMATOUS TO BILATERAL LOWER LEGS; 3+ PITTING EDEMA. ABDOMEN IS VERY DISTENDED; ASCITES NOTED. OVERALL, PT APPEARS VERY EMACIATED WITH BONY PROMINENCES NOTED TO BACKSIDE. WOUND VAC TO LEFT CONDON CHANGED LAST NIGHT D/T CANNISTER BEING FULL AND PT STATES SHE GETS HER WOUND VAC CHANGED EVERY MWF BY HOME HEALTH; SEE PHOTOS IN CHART. CALL LIGHT WITHIN REACH. WILL CONTINUE TO MONITOR UNTIL REPORT IS HANDED OFF TO ONCOMING RN.
--- NOTE | 2019-11-16 08:43 | NUR ---
BEDSIDE REPORT TAKEN THIS AM. PT SLEEPING, AROUSES TO VOICE. PT INITIALLY DENIED C/O PAIN, BUT THEN LATER C/O BILAT CALF PAIN. PT HAD LEVOPHED GTT AT 17MCG. VANCO STARTED FOR +BLOOD CX. DR BALLARD GIVEN UPDATE. PT'S CALLED AND GIVEN UPDATE. PT INCONTINENT OF LIQUID STOOL. TEAR AT COCCYX NOTED; MEPILEX PAD PLACED. CRACKLES TO BASES NOTED.
--- NOTE | 2019-11-16 17:34 | NUR ---
DR BALLARD CALLED TO REPORT I&O'S FOR SHIFT. U/O 250CC. 500CC NS BOLUS ORDERED. RECTAL TUBE PLACED THIS AM AROUND 0900 FOR LIQUID STOOL. 600CC'S LIQUID STOOL TOTAL FOR SHIFT. MEPILEX REMAINS INTACT OVER COCCYX. LEVOPHED REMAINS AT 17MCG, VASPRESSIN REMIANS AT 0.04UNITS. MAPS >60-65 T/O SHIFT LR STARTED AT 125CC/HR. PT TOLERATING LIQUID TRAY. PT SLEPT MOST OF THE DAY, SHE AWOKE FOR TURNS. SOME MILDLY CONFUSED CONVERSTATION NOTED. 02 REMOVED SATS RUNNING 98-99%. SATS REMAINS >95% ON RA. CENTRAL LINE DRSG CHANGED; SITE CONT'S TO OOZ SLIGHTLY. LEGS REMAIN DUSKY, COOL, TENDER, AND EDEMATOUS. LEGS ELEVATED ON PILLOWS. ORTHO CONSULT CALLED INTO ANSWERING SERVICE FOR LLE CELLULITIS WITH WOUND TO LEFT CONDON; WOUND VAC IN PLACE.
[2019-11-17 04:38] LABS: BASOPHILS ABSOLUTE AUTO 0.01 K/mm3 (0.00-0.23); BASOPHILS PERCENT AUTO 0 % (0-2); EOSINOPHILS ABSOLUTE AUTO 0.03 K/mm3 (0.00-0.68); EOSINOPHILS PERCENT AUTO 0 % (0-6); Hematocrit 26.8 % (33.0-51.0); IMMATURE GRAN PERCENT AUTO 1 % (0-1); LYMPHOCYTES ABSOLUTE AUTO 0.91 K/mm3 (0.84-5.20); LYMPHOCYTES PERCENT AUTO 6 % (21-46); MONOCYTES ABSOLUTE AUTO 0.69 K/mm3 (0.16-1.47); MONOCYTES PERCENT AUTO 5 % (4-13); Mean Corpuscular HGB 33.3 pg (26.0-34.0); Mean Corpuscular HGB Conc 33.6 g/dL (31.5-36.5); Mean Corpuscular Volume 99 fL (80-100); Mean Platelet Volume 9.6 fL (9.1-12.4); NEUTROPHILS ABSOLUTE AUTO 13.14 K/mm3 (1.96-9.15); NEUTROPHILS PERCENT AUTO 88 % (41-73); Platelet Count 255 K/mm3 (150-400); RDW Coefficient Variation 15.9 % (11.7-14.2); RDW Standard Deviation 58.3 fL (35.1-46.3); White Blood Cell Count 14.98 K/mm3 (4.00-11.30)
[2019-11-17 04:54] LABS: International Normalized Ratio 1.6; Prothrombin Time Results 16.7 Sec (9.7-11.5)
[2019-11-17 05:08] LABS: Anion Gap 8 mmol/L (6-16); Blood Urea Nitrogen 27 mg/dL (8-24); Bun/Creatinine Ratio 17.6 (12.0-20.0); CO2, Blood 27 mmol/L (21-32); Chloride, Blood 99 mmol/L (98-108); Creatinine, Blood 1.53 mg/dL (0.40-1.00); Glomerular Filtration Rate 36 (60-); Glucose, Blood 140 mg/dL (70-99); Potassium, Blood 2.4 mmol/L (3.5-5.5); Sodium, Blood 134 mmol/L (136-145); Vancomycin, Random 14.3 ug/mL
--- NOTE | 2019-11-17 05:39 | NUR ---
SHIFT SUMMARY PATIENT DID NOT SLEEP WELL TONIGHT. HAS BECOME CONFUSED, STATES SHE 'HEARS HER COUGHING DOWNSTAIRS,' BUT KNOWS THAT SHE IS IN THE HOSPITAL, SHE IS NOT AT HOME, JUST HEARING HER COUGH. OTHERWISE NO CHANGES. LEVOPHED @ 19 MCG/MIN, VASOPRESSIN RUNNING @ 0.04, LACTATED RINGERS @ 125 MLS/HR. ASSESSMENT IS CHARTED. VSS. NO C/O PAIN. WILL CONTINUE TO MONITOR.
--- NOTE | 2019-11-17 07:47 | NUR ---
ONCOMING NOTE REPORT RECEIVED FROM KEMAL DUMONT. BEDSIDE ROUNDING DONE. PT RESTING IN BED, POSITIONED TO RIGHT SIDE WITH PILLOWS, EYES OPEN. NO S/SX DISTRESS NOTED. PT WITH CENTRAL LINE - LEVOPHED GTT RUNNING AT 19MCG AND VASOPRESSIN GTT RUNNING, AND LR RUNNING AT 125ML/HR. WOUND VAC TO LEFT CONDON. LEFT LEG HOT TO TOUCH, RED. BLE +4 PITTING EDEMA. BLISTER NOTED TO LEFT ANKLE. VSS, SEE FLOWSHEET. CLAYTON CATHETER PATENT AND DRAINING TO GRAVITY. FLEXISEAL PATENT AND DRAINING TO GRAVITY, BURPED THERE WAS GAS BUILDUP NOTED IN COLLECTION BAG. PT WITHOUT ANY NEEDS AT THIS TIME. BED IN LOWEST POSITION, SIDE RAILS RAISED. CALL LIGHT IN REACH. WILL CONT TO MONITOR PT.
--- NOTE | 2019-11-17 11:59 | NUR ---
DR MCGEE UPDATE DR MCGEE UPDATED ON PT STATUS, AWARE OF LOW POTASSIUM. NOTIFIED DR MCGEE THAT PT WAS GIVEN THE 40MEQ KCl IV ORDERED FOLLOWING CRITICALLY LOW POTASSIUM AND THAT THE 40MEQ K-DUR ORDERED BY DR LYNCH WAS GIVEN AFTER THE F/U POTASSIUM LEVEL WAS STILL LOW AT 2.9. PER DR MCGEE ORDERS TO GIVE ADDITIONAL 40MEQ K-DUR NOW. NO FURTHER CHANGES TO PLAN OF CARE. CONTINUE TO TITRATE LEVOPHED DOWN. WILL CONT TO MONITOR PT.
--- NOTE | 2019-11-17 14:18 | NUR ---
DR ALDRICH ROUNDS DR ALDRICH ROUNDED, REMOVED WOUND VAC DRESSING AND ASSESSED SITE. NO CHANGE TO PLAN OF CARE. DR ALDRICH REDRESSED WOUND VAC. PLAN TO CONTINUE ABX ORDERED.
--- NOTE | 2019-11-17 18:50 | NUR ---
SHIFT SUMMARY PT RESTING IN BED. NO S/SX DISTRESS NOTED. PT CONTINUES TO HAVE AUDITORY HALLUCINATIONS WHERE SHE THINKS SHE CAN HEAR HER , PETER. PT DENIES ANY PAIN OR DISCOMFORT UNLESS BEING TURNED FOR REPOSITIONING. PT REFUSED REPOSITIONING TWICE THIS SHIFT, OTHERWISE WAS TURNED FROM LEFT TO RIGHT SIDE FOR PRESSURE RELIEF. NEW MEPILEX DRESSING APPLIED TO COCCYX AFTER PARTIAL BEDBATH GIVEN. FLEXISEAL REMAINS IN PLACE, PATENT AND DRAINING TO GRAVITY. CLAYTON CATHETER REMAINS IN PLACE, PATENT AND DRAINING TO GRAVITY. BLE +4 PITTING EDEMA. LLE WEEPING. BLISTER TO LEFT ANKLE POPPED AND OOZING SEROSANGUINOUS FLUID, NONADHERENT PADS WITH IDRIS WRAP APPLIED PER DR ALDRICH INSTRUCTIONS. WOUND VAC TO LEFT CONDON, NEW DRESSING APPLIED BY DR ALDRICH THIS AFTERNOON REMAINS C/D/I. BLE ELEVATED ON [address] ALDRICH INSTRUCTIONS, SEE ORDERS. PT BP STABLE ON LEVOPHED GTT, TITRATED TO EFFECT. UNABLE TO TITRATE BELOW 15MCG ON LEVOPHED GTT WITHOUT NOTICABLE DROP IN BP. VASOPRESSIN GTT CONTINUES TO RUN PER ORDERS. CENTRAL LINE REMAINS PATENT, DRESSING CHANGED THIS SHIFT. PT WITH DRY COUGH, NONPRODUCTIVE. PT WITH LOW GRADE TEMP ALL SHIFT. BED IN LOWEST POSITION, SIDE RAILS RAISED. CALL LIGHT IN REACH. WILL CONT TO MONITOR PT.
[2019-11-18 03:32] LABS: BASOPHILS ABSOLUTE AUTO 0.01 K/mm3 (0.00-0.23); BASOPHILS PERCENT AUTO 0 % (0-2); EOSINOPHILS ABSOLUTE AUTO 0.05 K/mm3 (0.00-0.68); EOSINOPHILS PERCENT AUTO 0 % (0-6); Hematocrit 25.8 % (33.0-51.0); Hemoglobin 8.5 g/dL (11.5-16.0); IMMATURE GRAN PERCENT AUTO 1 % (0-1); LYMPHOCYTES ABSOLUTE AUTO 0.97 K/mm3 (0.84-5.20); LYMPHOCYTES PERCENT AUTO 9 % (21-46); MONOCYTES ABSOLUTE AUTO 0.57 K/mm3 (0.16-1.47); MONOCYTES PERCENT AUTO 5 % (4-13); Mean Corpuscular HGB 32.8 pg (26.0-34.0); Mean Corpuscular HGB Conc 32.9 g/dL (31.5-36.5); Mean Corpuscular Volume 100 fL (80-100); Mean Platelet Volume 9.7 fL (9.1-12.4); NEUTROPHILS ABSOLUTE AUTO 9.43 K/mm3 (1.96-9.15); NEUTROPHILS PERCENT AUTO 85 % (41-73); Platelet Count 207 K/mm3 (150-400); RDW Coefficient Variation 15.8 % (11.7-14.2); RDW Standard Deviation 58.5 fL (35.1-46.3); Red Blood Cell Count 2.59 M/mm3 (3.80-5.20); White Blood Cell Count 11.13 K/mm3 (4.00-11.30)
[2019-11-18 03:49] LABS: Bun/Creatinine Ratio 17.2 (12.0-20.0); Calcium, Blood 7.3 mg/dL (8.5-10.1); Creatinine, Blood 1.28 mg/dL (0.40-1.00); Potassium, Blood 2.9 mmol/L (3.5-5.5)
--- NOTE | 2019-11-18 06:18 | NUR ---
SHIFT SUMMARY PATIENT SLEPT ALMOST THE ENTIRE NIGHT. NO ISSUES WITH HALLUCINATIONS AT ALL, FULLY ORIENTED TO PERSON, PLACE, TIME, AND SITUATION. URINE OUTPUT REMAINS LOW. ASSESSMENT IS CHARTED. VSS. NO C/O PAIN. WILL CONTINUE TO MONITOR.
--- NOTE | 2019-11-18 07:06 | NUR ---
ONCOMING SHIFT NOTE REPORT RECEIVED FROM KEMAL DUMONT. BEDSIDE ROUNDING DONE. PT RESTING IN BED, EYES CLOSED, AROUSES TO VERBAL STIMULI. PER REPORT PT MORE ORIENTED THROUGH THE NIGHT, NO HALLUCINATIONS. VSS, SEE FLOWSHEET. PER REPORT UNABLE TO TITRATE LEVOPHED BELOW 14MCG MAP WOULD DROP BELOW 65. PT WITHOUT ANY NEEDS AT THIS TIME. BED IN LOWEST POSITION, SIDE RAILS RAISED. CALL LIGHT IN REACH. WILL CONT TO MONITOR PT.
--- NOTE | 2019-11-18 09:27 | NUR ---
DR LYNCH ROUNDS DR LYNCH ROUNDED, UPDATED ON PT STATUS. PER DR LYNCH THERE WAS CONFUSION TO WHAT WAS SUPPOSED TO BE D/C YESTERDAY THE MERREM SHOULD HAVE BEEN AND NOT THE VANCO. ORDERS TO D/C MERREM AND RESTART VANCO PER PHARMACY DOSING. DR LYNCH AWARE OF PT'S LOW POTASSIUM LEVEL AND THAT KCl 40MEQ IV INFUSING NOW BUT THAT YESTERDAY PT REQUIRED THE KCl 40MEQ IV WELL K-DUR 80MEQ PO TO INCREASE POTASSIUM LEVEL, WHICH STILL DROPPED IN AM LABS. ORDERS TO GIVE K-DUR 80MEQ NOW. NO ADDITIONAL CHANGES TO PLAN OF CARE AT THIS TIME. WILL CONT TO MONITOR PT.
--- NOTE | 2019-11-18 09:30 | NUR ---
DR MCGEE ROUNDS DR MCGEE ROUNDED, UPDATED ON PT STATUS. DR MCGEE UPDATED ON CHANGE IN ABX PER DR LYNCH, ORDERS TO WAIT ON RESTARTING VANCO UNTIL HE SPEAKS WITH DR LYNCH. OTHERWISE NO CHANGE IN PLAN OF CARE AT THIS TIME. WILL CONT TO MONITOR PT.
--- NOTE | 2019-11-18 09:41 | NUR ---
K-DUR DOSE PT TO TAKE K-DUR 80MEQ PO FOR LOW POTASSIUM LEVEL. PER SIS, PHARMACIST, K-DUR DOSE SHOULD BE SPREAD OVER 2 HOURS. INSTRUCTIONS TO GIVE K-DUR 40MEQ NOW AND WAIT A COUPLE HOURS BEFORE GIVING REMAINING 40MEQ.
--- NOTE | 2019-11-18 10:35 | NUR ---
LAB DRAW BLOOD DRAWN VIA CENTRAL LINE FOR 10AM LABS, SENT TO LAB.
--- NOTE | 2019-11-18 12:55 | NUR ---
REPORT AND WALKING ROUNDS WITH JORDON SOMMER. ASSUMED PT CARE. NEW ICE WATER PROVIDED TO PT. CALL LIGHT IN REACH.
--- NOTE | 2019-11-18 13:01 | NUR ---
REPORT OFF REPORT GIVEN TO KEMAL GOMEZ. BEDSIDE ROUNDING DONE. JASON TO ASSUME CARE OF PT AT THIS TIME.
--- NOTE | 2019-11-18 14:28 | NUR ---
VS ENTERED AT THIS TIME ERRONEOUS.
--- NOTE | 2019-11-18 14:30 | NUR ---
DECREASED LEVOPHED TO 11MCG/MIN.
--- NOTE | 2019-11-18 15:15 | NUR ---
DR SANCHEZ TO ROOM FOR EVAL. PT ANWERING QUESTIONS. NO NEW ORDERS RECEIVED.
--- NOTE | 2019-11-18 16:07 | NUR ---
DECREASED LEVOPHED TO 9MCG/MIN. PT RESTING. RESP EVEN AND NON LABORED. CALL LIGHT IN REACH.
--- NOTE | 2019-11-18 18:13 | NUR ---
SHIFT SUMMARY PT ALERT AND ORIENTED TO SELF AND PLACE AND SITUATION. PT LEVOPHED DOWN TO 9MCG/MIN, VASOPRESSOR AT 0.04UNIT/MIN. NS AT TKO. PT DENIES PAIN. KLEOPPER ROUNDED, NO NEW ORDERS AT THIS TIME. WOUND VAC DRAINING SCANT DRAINAGE. PT REFUSES TURNS AT TIMES. TOLERATING CLEAR LIQUIDS WELL. RECTAL TUBE DRAINING WELL. CLAYTON PATENT AND DRAINING. LOWER EXTREMITIES STILL SWOLLEN. PLAN TO CONT TO TITRATE PT OFF PRESSORS.
[2019-11-19 03:53] LABS: BASOPHILS ABSOLUTE AUTO 0.01 K/mm3 (0.00-0.23); BASOPHILS PERCENT AUTO 0 % (0-2); EOSINOPHILS ABSOLUTE AUTO 0.07 K/mm3 (0.00-0.68); EOSINOPHILS PERCENT AUTO 1 % (0-6); Hematocrit 27.2 % (33.0-51.0); IMMATURE GRAN ABSOLUTE AUTO 0.05 K/mm3 (0.00-0.10); IMMATURE GRAN PERCENT AUTO 1 % (0-1); LYMPHOCYTES ABSOLUTE AUTO 1.03 K/mm3 (0.84-5.20); LYMPHOCYTES PERCENT AUTO 12 % (21-46); MONOCYTES ABSOLUTE AUTO 0.65 K/mm3 (0.16-1.47); MONOCYTES PERCENT AUTO 8 % (4-13); Mean Corpuscular HGB 32.5 pg (26.0-34.0); Mean Corpuscular HGB Conc 33.1 g/dL (31.5-36.5); Mean Corpuscular Volume 98 fL (80-100); NEUTROPHILS ABSOLUTE AUTO 6.72 K/mm3 (1.96-9.15); NEUTROPHILS PERCENT AUTO 79 % (41-73); Platelet Count 205 K/mm3 (150-400); RDW Coefficient Variation 15.4 % (11.7-14.2); RDW Standard Deviation 55.6 fL (35.1-46.3); Red Blood Cell Count 2.77 M/mm3 (3.80-5.20); White Blood Cell Count 8.53 K/mm3 (4.00-11.30)
[2019-11-19 04:13] LABS: Albumin, Blood 1.6 g/dL (3.4-5.0); Albumin/Globulin Ratio 0.4 (0.8-1.8); Bilirubin, Total 0.6 mg/dL (0.1-1.0); Bun/Creatinine Ratio 18.4 (12.0-20.0); Calcium, Blood 7.4 mg/dL (8.5-10.1); Creatinine, Blood 1.14 mg/dL (0.40-1.00); Globulin, Blood 4.1 g/dL (2.2-4.0); Magnesium, Blood 1.8 mg/dL (1.6-2.4); Potassium, Blood 3.1 mmol/L (3.5-5.5); Total Protein, Blood 5.7 g/dL (6.4-8.2)
--- NOTE | 2019-11-19 07:31 | NUR ---
SHIFT SUMMARY PATIENT SLEPT WELL THROUGH NIGHT. WAS A LITTLE CRANKY ABOUT WAKING TO TURN/REPOSITION, BUT USUALLY IN GOOD MOOD WITH NEXT INTERACTION. WAS ABLE TO TURN VASOPRESSIN OFF, LEVOPHED CURRENTLY @ 10 MCG/MIN. GREAT URINE OUTPUT. ASSESSMENT IS CHARTEC. VSS. NO C/O PAIN. WILL CONTINUE TO MONITOR.
--- NOTE | 2019-11-19 11:04 | NUR ---
Assessment of pt she is flat and slightly confussed having some aching to leg is willing to only take tylenol. will update staff.
--- NOTE | 2019-11-19 19:06 | NUR ---
SHIFT [facility] AT APPROX 0700; COMPLETED ASSESSMENT AND REASSESSMENTS T/O SHIFT. PT RESTING IN BED DURING SHIFT, REPOSITIONED Q2 FOR COMFORT AND PRESSURE ULCER PREVENTION. PT A&Ox3 WITH INTERMITTENT CONFUSION; PT STATES SPOUSE WALKED BY WINDOW THIS AFTERNOON AND WAS SUPPOSED TO STOP TO BLOW KISSES BUT DIDNT; NO ONE OUTSIDE OF WINDOW WHEN RN IN ROOM; SPOUSE CALLED THIS EVENING EXPRESSING CONCERNS REGARDING HER CONFUSION. PT REPORTS LEFT HIP PAIN THIS AM; MEDICATED x1 WITH TYLENOL WITH POSITVE RESULTS. PT DENIES SOB, CHEST PAIN/PRESSURE, NAUSEA AND DIZZINESS T/O SHIFT. MAP GREATER THAN 60 T/O SHIFT, PT STARTED ON LEVO 10 GTT THIS AM, TITRATED TO [address] COLEMAN TO BEDSIDE THIS AM; DRESSING CHANGED TO LEFT FOOT/CONDON. CLAYTON PATENT AND DRAINING. FLEXISEAL IN PLACE. PT RECEIVING IV ANTIBIOTICS AND PO POTASSIUM. EDEMATOUS T/O. WOUND VAC IN PLACE ON LEFT UPPER CONDON; SET TO 120 SUCTION; NO LEAKS NOTED, MINIMAL OUTPUT. BP NOTED; OTHER VSS. NO OTHER ACUTE CHANGES NOTED DURING SHIFT. REPORT GIVEN TO ONCOMING RN.
[2019-11-20 04:49] LABS: Bun/Creatinine Ratio 20.8 (12.0-20.0); Calcium, Blood 7.2 mg/dL (8.5-10.1); Creatinine, Blood 1.06 mg/dL (0.40-1.00); Potassium, Blood 3.5 mmol/L (3.5-5.5)
--- NOTE | 2019-11-20 06:27 | NUR ---
SHIFT SUMMARY PATIENT SLEPT WELL THROUGH NIGHT. ATTEMPTED TO TURN DOWN LEVOPHED, UNSUCESSFUL. OCASSIONALLY C/O PAIN IN LOWER BACK, RELIEVED WITH TURNING AT LEAST EVERY 2 HOURS. STOOL IN RECTAL TUBE IS THICKENING, HOWEVER WILL DRAIN IF MILKED REGULARLY. GREAT URINE OUTPUT. ASSESSMENT IS CHARTED. VSS. WILL CONTINUE TO MONITOR.
--- NOTE | 2019-11-20 09:00 | NUR ---
ASSESSMENT- PT AWAKE, ALERT, COOPERATIVE. C/O FATIGUE, DISCOMFORT WITH ANY MOVEMENT. LUNGS CLEAR DECREASED RIGHT BASE. NO SOB. ATRIAL FIB, SBP 90'S LEVOPHED DECREASED TO 6 MCG/MIN, WILL MONITOR. RSC CENTRAL LINE INTACT. NS TKO. NO N/V. ABDOMEN ROUND, FIRM. UO VIA CLAYTON ADEQUATE. RECTAL TUBE PATENT WITH YELLOW BROWN STOOL. DRSG LEFT UPPER ARM DI. WOUND VAC TO LEFT CONDON DI TO 120 MMHG. IDRIS WRAP TO LEFT LOWER LEG, SMALL OPEN BLISTER LEFT MEDIAL ANKLE. REPOSITIONED. EATING BREAKFAST.
--- NOTE | 2019-11-20 11:32 | NUR ---
DR. ALDRICH HERE-UDPATED. WOUND VAC REMOVED-ASSESSED SITE, PINK TISSUE WITH SCANT DRAINAGE. REAPPLIED WOUND VAC, LARGE LEFT ANKLE AREA WEEPING, BLISTERED-MEPILEX WITHOUT ADHESIVE APPLIED AND IDRIS WRAP. PT TOLERATED WELL. BOTH LOWER LEGS SWOLLEN, REDDENED, EDEMATOUS, PT STATES IMPROVING. LEVOPHED BEING TITRATED DOWN.
--- NOTE | 2019-11-20 15:10 | NUR ---
PT TO CT IN BED WITHOUT PROBLEMS, TOLERATED WELL. MOVES VERY SLOWLY, FATIGUED DECONDITIONED. LIFT TO TRANSFER TO TABLE AND BACK TO BED. HYPOTENSIVE-LEVOPHED NEEDED TO BE INCREASED FOR BP SUPPORT. UO GOOD VIA CLAYTON. RECTAL TUBE INTACT
--- NOTE | 2019-11-20 16:01 | NUR ---
DR. WATERS HERE-ASSESSED PT. SEE ORDERS. BATH DONE. HYPOTENSIVE. LEVOPHED INCREASED. SKIN FRAGILE, EDEMATOUS LOWER BODY, ABDOMEN FIRM, DENIES N/V.
--- NOTE | 2019-11-20 18:43 | NUR ---
PT HAS REMAINED FATIGUED, SLEEPS WHEN UNDISTURBED. AWAKENS EASILY, C/O GENERALIZED DISCOMFORT WITH MOVING. LEVOPHED AT 8 MCG/MIN FOR BP SUPPORT. UO ADEQUATE, RECTAL TUBE DRAINED 600 CC STOOL. DRESSINGS LEFT LEG INTACT
[2019-11-21 03:56] LABS: BASOPHILS ABSOLUTE AUTO 0.03 K/mm3 (0.00-0.23); BASOPHILS PERCENT AUTO 1 % (0-2); EOSINOPHILS PERCENT AUTO 2 % (0-6); Hematocrit 28.9 % (33.0-51.0); Hemoglobin 9.8 g/dL (11.5-16.0); IMMATURE GRAN ABSOLUTE AUTO 0.08 K/mm3 (0.00-0.10); IMMATURE GRAN PERCENT AUTO 1 % (0-1); LYMPHOCYTES ABSOLUTE AUTO 1.05 K/mm3 (0.84-5.20); LYMPHOCYTES PERCENT AUTO 17 % (21-46); MONOCYTES ABSOLUTE AUTO 0.44 K/mm3 (0.16-1.47); MONOCYTES PERCENT AUTO 7 % (4-13); Mean Corpuscular HGB Conc 33.9 g/dL (31.5-36.5); Mean Corpuscular Volume 97 fL (80-100); NEUTROPHILS PERCENT AUTO 73 % (41-73); Platelet Count 287 K/mm3 (150-400); RDW Coefficient Variation 15.2 % (11.7-14.2); RDW Standard Deviation 53.6 fL (35.1-46.3); Red Blood Cell Count 2.97 M/mm3 (3.80-5.20)
[2019-11-21 04:14] LABS: Albumin, Blood 1.4 g/dL (3.4-5.0); Albumin/Globulin Ratio 0.4 (0.8-1.8); Bilirubin, Total 0.3 mg/dL (0.1-1.0); Bun/Creatinine Ratio 18.7 (12.0-20.0); Calcium, Blood 7.7 mg/dL (8.5-10.1); Creatinine, Blood 1.07 mg/dL (0.40-1.00); Globulin, Blood 3.8 g/dL (2.2-4.0); Magnesium, Blood 1.7 mg/dL (1.6-2.4); Phosphorus, Blood 2.7 mg/dL (2.5-4.9); Potassium, Blood 3.3 mmol/L (3.5-5.5); Total Protein, Blood 5.2 g/dL (6.4-8.2)
--- NOTE | 2019-11-21 06:11 | NUR ---
SHIFT SUMMARY PATIENT SLEPT WELL THROUGH NIGHT. NO C/O HALLUCINATIONS, MORE APPROPRIATE TONIGHT THAN LAST SEVERAL NIGHTS. NO C/O PAIN. ELECTROLYTES BEING REPLENISHED PER PROTOCOL. WAS ABLE TO BRING LEVOPHED DRIP DOWN TO 5 MCG/MIN, COULD NOT HANDLE ANY LOWER. GREAT URINE OUTPUT. ASSESSMENT IS CHARTED. VSS. WILL CONTINUE TO MONITOR.
--- NOTE | 2019-11-21 08:04 | NUR ---
ASSESSMENT-PT AWAKE, ALERT, COOPERATIVE. STATES DID SLEEP WELL. MORE TALKATIVE TODAY. STATES SHOULDER BLADES PAINFUL-REPOSTIONED WITH RELIEF. DENIES ANY SOB. RSC CENTRAL LINE INTACT WITH NS TKO, MAGNESIUM REPLACEMENT COMPLETED, K REPLACEMENT INFUSING, NS TKO, LEVOPHED FOR BP SUPPORT AT 5 MCG/MIN, MAP GREATER THAN 60. NO N/V. UO VIA CLAYTON. RECTAL TUBE INTACT WITH SMALL AMOUNT DRAINAGE. GENERALIZED EDEMA FROM FEET TO LOWER BACK. RIGHT LEG WITH 4+ EDEMA, LEGS ELEVATED ON PILLOWS. WOUND VAC TO LEFT CONDON DI. IDRIS WRAP TO LEFT CONDON. SKIN FRAGILE. ABLE TO USE CALL LIGHT, ENCOURAGED ACTIVITY, MOVEMENT
--- NOTE | 2019-11-21 10:14 | NUR ---
STATES POOR APPETITE, WENT THROUGH MENU WITH PT TO TRY TO INCREASE OPTIONS SHE WILL EAT. REFUSED TURN NOW-WANTS TO REST. SBP MARGINAL, LEVOPHED CONTINUES
--- NOTE | 2019-11-21 12:18 | NUR ---
DR. CISNEROS HERE-ASSESSED PT. PLANS TO START MIDIDRINE TO ASSIST WITH DECREASING LEVOPHED. OK FOR PT TO INCREASE ACTIVITY. PT FATIGUED, ENCOURAGING PT TO MOVE IN BED
--- NOTE | 2019-11-21 14:53 | NUR ---
BATH DONE, PT MOVING BETTER. ABLE TO ASSIST TO SIT UP AT EDGE OF BED. DID WELL BUT C/O DIZZINESS WITH SITTING FOR FEW MINUTES. ASSIST BACK TO BED-REPOSITIONED. ABLE TO DECREASE LEVOPHED TO 2 MCG/MIN. RECTAL TUBE UNCOMFORTABLE-DRAINAGE LESS. D/C WITHOUT PROBLEMS. DRSG LEFT ANKLE CHANGED-ALLEVYN APPLIED, IDRIS WRAP. SWELLING LESS LEFT LEG THAN RIGHT-UNCHANGED
--- NOTE | 2019-11-21 16:00 | NUR ---
PT HAS BEEN ABLE TO REST NOW. DENIES COMPLAINTS AT REST. DR. CISNEROS HERE-UPDATED WITH VS. PLANS TO INCREASE DOSE OF MIDODRINE.
--- NOTE | 2019-11-21 17:59 | NUR ---
PT AWAKE, ALERT, COOPERATIVE. REPOSITIONED, INCONTINENT SMALL AMOUNT LIQUID STOOL. TURNING BETTER. HYPOTENSIVE, GIVEN EXTRA DOSE MIDODRINE. WILL CONTINUE TO MONITOR. WOUND VAC LEFT CONDON DI, NO DRAINAGE.
--- NOTE | 2019-11-21 18:32 | NUR ---
SBP LOW, NEED TO INCREASE LEVOPHED. SET UP FOR DINNER. DENIES PAIN. CONTINUE TO MONITOR
--- NOTE | 2019-11-21 18:45 | NUR ---
Initial spiritual care note: Mrs. Bahena admits that she is tired of being sick and hospitalized. She feels like she's "been through hell" since the begining of the year. She claims a strong luisa in God that sustains her. She feels well-supported by family. She is hopeful she will recover and return to her previous [facility]. Prayer for healing provided at her request. I will remain available.
--- NOTE | 2019-11-21 19:38 | NUR ---
ASSUMED CARE OF PT AT 1915. REPORT RECEIVED AT BEDSIDE. PT PRESENTS IN BED. ALERT AND ORIENTED PLEASANT AND COOPERATIVE WITH CARE AND ASSESSMENT. PT IN NO APARENT DISTRESS AT THIS TIME. WILL REVIEW CHART AND PLAN OF CARE FOR THIS PT.
--- NOTE | 2019-11-21 20:40 | NUR ---
ASSUMED CARE OF PT AT 1915. REPORT RECEIVED AT BEDSIDE. PT PRESENTS IN BED. ALERT AND ORIENTED, PLEASANT AND COOPERATIVE WITH CARE AND ASSESSMENT. WOUND VACK TO LEFT LOWER EXTREMITY TO SUCTION WITHOUT S/S LEAK. PT IN NO APPARENT DISTRESS AT THIS TIME. PT HAS SOMEWHAT FLAT AFFECT UPON PRESENTATION. POOR APPETITE, DOES CHOSE TO KEEP SUPPLEMENT AT BEDSIDE. WILL REVIEW CHART AND PLAN OF CARE FOR THIS PT.
--- NOTE | 2019-11-21 23:42 | NUR ---
PT HAS BEEN INCONTINENT TO STOOL. IS NOT ABLE TO STOP INCONTINENCE THOUGH IS ABLE TO KNOW WHEN THIS HAS OCCURRED. PARTIAL BED CHANGE DONE. OF NOTE: EDEMA FROM TOES TO JUST BELOW AXILLA AREA. PT HAS RECEIVED IV DIURETIC. WILL MONITOR FOR AFFECTIVENESS.
--- NOTE | 2019-11-22 03:29 | NUR ---
HAVE BEEN ABLE TO TITRATE LEVOPHED DOWN TO 2 MCG'S/MIN. BLOOD PRESSURES REMAINED WITH MAP > 60. HAS SUBSEQUENTLY HAD DROP IN BLOOD PRESSURES MANDATING TITRATION BACK UP TO 4 MCG'S. PT HAS BEEN MEDICATED WITH 650 MG TYLENOL FOR COMPLAINT OF LEFT HIP PAIN. PT STATES THIS IS AFFECTIVE TO RELIEVE DISCOMFORT. HAS TOLERATED Q 2 HOUR TURNS IN BED. WILL CONTINUE TO MONITOR.
[2019-11-22 04:44] LABS: Magnesium, Blood 2.1 mg/dL (1.6-2.4); Potassium, Blood 3.7 mmol/L (3.5-5.5)
--- NOTE | 2019-11-22 06:30 | NUR ---
LEVOPHED CONTINUES AT 4 MCG'S/MIN. PT'S BLOOD PRESSURE REMAINS WITH MAP > 60. PT HAS BEEN ABLE TO REST SOME THIS NIGHT. AWAKENS VERY EASILY TO ANY NOISE IN ROOM. WOUND VAC REMAINS TO SUCTION W/O S/S LEAK. WILL CONTINUE TO MONITOR PT, AND WILL REPORT OFF TO ONCOMING RN.
--- NOTE | 2019-11-22 09:09 | NUR ---
ASSUMED CARE OF PT AT 0700. BEDSIDE REPORT FROM TRAVIS SOMMER. PT RESTING IN BED. WAKES c VERBAL STIMULI. A&OX3. ANSWERS QUESTIONS APPROPRIATELY. STATES SHE GOT ADEQUATE SLEEP LAST NOC. LUNGS DIMINISHED IN BASES. PT P/W/D. AFIB ON MONITOR. LEVOPHED INFUSING AT 4 MCG/MIN. WILL TITRATE FOR MAP >65. GOAL TO TITRATE OFF. CENTRAL LINE TO R SUBCLAVIAN. WILL CHANGE DRESSING TODAY. ABD FIRM, DISTENDED. BT X 4. MEIPLEX TO COCCXY, LEFT UPPER ARM. IDRIS AND WOUND VAC TO LLE. DRESSINGS C/D/I. 3+ EDEMA TO RLE, 1+ TO LLE. GENERALIZED EDEMA FROM MID BACK TO FEET. CLAYTON PATENT AND DRAINING TO GRAVITY. BEDBATH COMPLETE. PT TOLERATED WELL. UP TO CHAIR. PT INCONTINENT OF STOOL, LOOSE GREEN. PT c IMPROVED APPETITE FOR BREAKFAST, ATE 50%. WILL CONTINUE TO MONITOR.
--- NOTE | 2019-11-22 18:00 | NUR ---
1630: NS INFUSING PER ORDERS, MAP OF 50'S, LEVOPHED RESUMED AT 2MCG WITH GOOD RESULTS, MAP NOW >65. WILL ADMINISTER MIDODRINE PER ORDERS. PT RESTING WITH NO C/O. 1800: PT HAS SLEPT OFF AND ON THIS AFTERNOON, NO AGITATION, NO C/O PAIN. DRESSING TO LEFT ANKLE CDI, WOUND VAC DRESSING INTACT WITH SUCTION AT 120MM/HG. LE'S ELEVATED ON PILLOWS, REMAIN EDEMATOUS. LEVOPHED REMAINS AT 2MCG, NS INFUSING AT 100ML/HR, MAPS REMAIN 60'S, OTHER VSS. PT SITTING UP EATING DINNER, DENIES NEEDS OR C/O AT THIS TIME. NO OBVIOUS HALLUCINATIONS NOTED THIS AFTERNOON.
--- NOTE | 2019-11-22 20:00 | NUR ---
ASSUMPTION OF CARE: ASSUMED CARE FROM FERNIE RN. PATIENT LEVOPHED RUNNING AT 2MCG/MIN WITH A MAP OF 63. ALL SETTINGS VERIFIED WITH FERNIE RN. PATIENT ALERT AND ANSWERING QUESTIONS APPROPRIATLY, INTERMITTENT INAPPROPRIATE/NONSENSICAL STATEMENTS. CALL LIGHT WITHIN REACH AND USED APPROPRIATLY. CENTRAL LINE INTACT, NO ISSUES NOTED, INFUSING. WOUND VAC RUNNING AT 120 AND MEPELEX ON LEFT UPPER ARM AND COCCYX, LEFT ANKLE HAS AN IDRIS BANDAGE WRAP. CLAYTON PATENT AND DRAINING TO GRAVITY.
[2019-11-23 04:00] LABS: BASOPHILS ABSOLUTE AUTO 0.06 K/mm3 (0.00-0.23); BASOPHILS PERCENT AUTO 1 % (0-2); EOSINOPHILS ABSOLUTE AUTO 0.12 K/mm3 (0.00-0.68); EOSINOPHILS PERCENT AUTO 1 % (0-6); Hematocrit 28.2 % (33.0-51.0); Hemoglobin 9.5 g/dL (11.5-16.0); IMMATURE GRAN ABSOLUTE AUTO 0.15 K/mm3 (0.00-0.10); IMMATURE GRAN PERCENT AUTO 2 % (0-1); LYMPHOCYTES ABSOLUTE AUTO 1.18 K/mm3 (0.84-5.20); LYMPHOCYTES PERCENT AUTO 12 % (21-46); MONOCYTES ABSOLUTE AUTO 0.39 K/mm3 (0.16-1.47); MONOCYTES PERCENT AUTO 4 % (4-13); Mean Corpuscular HGB 32.8 pg (26.0-34.0); Mean Corpuscular HGB Conc 33.7 g/dL (31.5-36.5); Mean Corpuscular Volume 97 fL (80-100); Mean Platelet Volume 9.8 fL (9.1-12.4); NEUTROPHILS ABSOLUTE AUTO 7.91 K/mm3 (1.96-9.15); NEUTROPHILS PERCENT AUTO 81 % (41-73); Platelet Count 393 K/mm3 (150-400); RDW Coefficient Variation 15.5 % (11.7-14.2); RDW Standard Deviation 52.9 fL (35.1-46.3); White Blood Cell Count 9.81 K/mm3 (4.00-11.30)
[2019-11-23 04:20] LABS: Bun/Creatinine Ratio 16.3 (12.0-20.0); Calcium, Blood 8.1 mg/dL (8.5-10.1); Creatinine, Blood 1.23 mg/dL (0.40-1.00)
--- NOTE | 2019-11-23 04:30 | NUR ---
SHIFT SUMMARY: PATIENT FREQUENTLY COMPLAINS THAT SHE HAS 'BEEN WAITING FOR HOURS FOR YOU TO FIX MY L2'. MULTIPLE REPOSITIONING COMPLETED, TYLENOL GIVEN X1 IN THE EVENING BUT REFUSED THIS MORNING. PATIENT STATES THAT WE HAVE TO FIX HER L2 NOT GIVE HER MEDICINE OR REPOSITION HER. WOUND VAC DRESSING CHANGED PER MD ORDERS. CENTRAL LINE DRESSING CHANGED 11/21. PATIENT MAP PRESSURE REMIANING IN THE 60'S EVEN THOUGH LEVOPHED INCREASED TO 3. ALL OTHER VSS, CALL LIGHT WITHIN REACH, BED LOW AND LOCKED
--- NOTE | 2019-11-23 08:55 | NUR ---
ASSUMED CARE OF PT AT 0700. BEDSIDE REPORT FROM JULIANA SOMMER. PT RESTING IN BED. WAKES c VERBAL STIMULI. ANSWERS QUESTIONS APPROPRIATELY. FOLLOWS COMMANDS. FLAT AFFECT. C/O POOR NIGHT SLEEP D/T BACK PAIN. REPOSITIONED REQUESTED. LEVOPHED INFUSING AT 3 MCG/MIN. WILL TITRATE FOR MAP >60. GOAL TO D/C LEVOPHED AND CENTRAL LINE. NS INFUSING AT 100 ML/HR. LUNGS DIMINISHED IN BASES. PT P/W/D. ABD FIRM, DISTENDED. BT X 4. CLAYTON PATENT, DRAINING TO GRAVITY. PT CONTINUES TO HAVE 4+ EDEMA TO LOWER EXTREMITIES TO BACK. WOUND VAC TO LLE. PT IRRITABLE c POOR APPETITE. REVIEWED SEVERAL DIETARY CHANGES, PT REFUSING ALL. REFUSING TO SPEAK c POWDER EXPERT, STATES "IT WONT MAKE A DIFFERENCE ANYWAYS." WILL CONTINUE TO MONITOR.
--- NOTE | 2019-11-23 17:37 | NUR ---
SHIFT SUMMARY PT PHYSICAL ASSESSMENT REMAINS UNCHANGED THIS SHIFT. LEVOPHED CONTINUES AT 3 MCG/MIN. CENTRAL LINE REMAINS IN PLACE. LASIX D/C'D AND HOME BUMEX AND SPIROLACTONE STARTED. 300 ML OF JAYA URINE OUT. PT WORKED c PT AND OT TODAY. ENCOURAGED UP TO CHAIR. UP ONCE TODAY. PT CONTINUES TO HAVE SIGNIFICANT EDEMA TO BACK AND LEGS. CONTINUES TO HAVE POOR APPETITE. WILL CONTINUE TO MONITOR UNTIL REPORT TO ONCOMING NURSE.
--- NOTE | 2019-11-23 20:12 | NUR ---
PT APPEARS TO BE SLEEPING ON ENTRY TO ROOM. AROUSES EASILY TO VOICE. ANSWERS QUESTIONS APPROPRIATELY. TAKES PILLS WITH WATER WITHOUT DIFFICULTY. PT CAN ASSIST WITH TURNING. IS INCONTINENT OF STOOL AND LETS RN KNOW WHEN SHE NEEDS CLEANED UP. PT IS EXTREMELY EDEMATOUS T/O. SEE ASSESSMENT.
--- NOTE | 2019-11-24 06:13 | NUR ---
SUMMARY PT RESTING IN BED. NO ACUTE CHANGES THIS SHIFT. CONTINUES TO BE ON 3MCG/MIN OF LEVOPHED. USES CALL LIGHT APPROPRIATELY. NO SIGN OF DISTRESS.
--- NOTE | 2019-11-24 08:00 | NUR ---
INITIAL ASSESSMENT PATIENT ALERT AND ORIENTED X 4, AFEBRILE. PATIENT WITHDRAWN, FLAT AFFECT, COOPERATIVE. PATIENT WEAK, 2 PERSON ASSIST. PATIENT STATES SHE IS DIZZY WHEN SHE STANDS UP. PATIENT DENIES PAIN AT THIS TIME. PATIENT SATTING 90% AND GREATER ON RA. LUNGS CLEAR IN UPPER LOBES AND DIMINISHED IN LOWER LOBES. PATIENT DENIES COUGH. PATIENT IN A.FIB, HR 70S TO 80S. BP STABLE ON LEVOPHED. LEVOPHED AT 4 MCG/ MINUTE. PATIENT ON SCHEDULED MIDODRINE. ATTENDS IN PLACE; PATIENT INCONTINENT OF STOOL. STOOL PASTY AND LIGHT BROWN IN COLOR. ABDOMEN DISTENDED, FIRM, WITH HYPOACTIVE BS NOTED. PATIENT ON CARDIAC DIET; POOR APPETITE. CLAYTON DRAINING DARK YELLOW URINE. SCATTERED BRUISING NOTED. L ANKLE WOUND NOTED- DRESSING C/D/I. MEPILEX TO REDDENED COCCYX. SKIN TEAR TO LUE- DRESSING C/D/I. WOUND VAC TO WOUND ON LLE. ASCITES NOTED. 3+ PITTING EDEMA TO BLES. NS TKO. PATIENT RECEIVING ROCEPHIN. BED LOW, CALL LIGHT IN REACH. WILL CONTINUE TO MONITOR PATIENT FREQUENTLY THROUGHOUT SHIFT.
[2019-11-24 08:30] LABS: Bun/Creatinine Ratio 16.4 (12.0-20.0); Creatinine, Blood 1.22 mg/dL (0.40-1.00)
--- NOTE | 2019-11-24 10:37 | NUR ---
UPDATED DR. LEY ON PATIENT STATUS. INFORMED TO KEEP CENTRAL LINE IN PLACE FOR NOW STILL RECEIVING LEVOPHED FOR BP SUPPORT.
--- NOTE | 2019-11-24 12:09 | NUR ---
PATIENT RESTING QUIETLY IN BED UPON ENTERING ROOM. PATIENT DOES NOT WANT REPOSITIONED AT THIS TIME. PATIENT AFEBRILE. NO COMPLAINTS OF PAIN. PATIENT REMAINS SATTING 90% AND GREATER ON RA. PATIENT REMAINS IN A.FIB, HR 60S TO LOW 100S. BP STABLE ON LEVOPHED AT 4 MCG/ MINUTE. 50 MLS OF URINE OUTPUT SO FAR THIS SHIFT. DR. LEY INFORMED. NO ORDER RECEIVED AT THIS TIME. WOUND VAC DRESSING CHANGED. NO OTHER ACUTE CHANGES TO NOTE ON AT THIS TIME. WILL CONTINUE TO MONITOR.
--- NOTE | 2019-11-24 14:30 | NUR ---
PATIENT ONLY HAD 50 CC URINE OUTPUT FROM CLAYTON THIS SHIFT. DR. LEY INFORMED. INFORMED THAT CLAYTON FLUSHED WITH 10 CC NS AND APPEARS PATENT. STATED TO BLADDER SCAN AND LET HER KNOW RESULTS. INFORMED THAT BLADDER SCAN SHOWED OVER 999 MLS IN BLADDER. INFORMED THAT PATIENT DOES HAVE PITTING ABDOMINAL EDEMA AND ASCITES. LOOKED WITH ULTRASOUND AND STATED THAT BLADDER WALL EDEMATOUS BUT ALSO APPEARS THAT THERE IS URINE IN BLADDER. CLAYTON REPLACED. NO URINE OUTPUT BACK. URETHRA WAS VISUALIZED WHEN CLAYTON PLACED. CLAYTON FLUSHED WITH 40 MLS NS AND RETURNED IN CLAYTON TUBING. DR. LEY INFORMED. 20 MG LASIX IV GIVEN PER DR. LEY. DR. LEY STATED TO CONTINUE TO MONITOR.
--- NOTE | 2019-11-24 18:20 | NUR ---
SHIFT SUMMARY PATIENT REMAINED ALERT AND ORIENTED, WITHDRAWN WITH FLAT AFFECT. PATIENT REMAINED AFEBRILE. PATIENT HAD NO COMPLAINTS OF PAIN. PATIENT WEAK BUT ABLE TO HELP WITH REPOSITIONING. PATIENT REMAINED SATTING 90% AND GREATER ON RA. PATIENT REMAINED IN A.FIB, HR 60S TO 80S. BP REMAINED STABLE ON LEVOPHED 3-4 MCG/ MINUTE. PATIENT STARTED ON SCHEDULED STEROIDS. PATIENT HAD POOR APPETITE. PATIENT REMAINED INCONTINENT OF STOOL. PATIENT HAS MULTIPLE PASTY, LIGHT BROWN STOOLS. BS HYPOACTIVE. ABDOMEN FIRM. CLAYTON REPLACED BLADDER SCAN SHOWING OVER [address] NOTED BY DR. LEY. PATIENT HAD TOTAL OF 260 MLS OF URINE OUT AFTER 20 MG IV LASIX OT GIVEN. WOUND VAC CHANGED TO LLE. NS TKO. PATIENT HAD FULL BED BATH THIS SHIFT. PATIENT HAS NO COMPLAINTS AT THIS TIME. BED LOW, CALL LIGHT IN REACH. REPORT WILL BE GIVEN TO ONCOMING COOK SPECIALTY NURSE SHORTLY.
--- NOTE | 2019-11-24 20:17 | NUR ---
PT RESTING IN BED. A/O AND ANSWERING QUESTIONS APPROPRIATELY. EDEMATOUS T/O WHICH MAKES IT DIFFICULT FOR PT'S MOBILITY BUT IS ABLE TO ASSIST WITH TURNS. INCONTINENT OF STOOL BUT ALERTS NURSE WHEN NEEDING CLEANED UP. ON LEVOPHED GTT. NO SIGN OF DISTRESS. CALL LIGHT IN REACH AND PT USES APPROPRIATELY.
[2019-11-25 05:20] LABS: BASOPHILS ABSOLUTE AUTO 0.02 K/mm3 (0.00-0.23); BASOPHILS PERCENT AUTO 0 % (0-2); EOSINOPHILS PERCENT AUTO 0 % (0-6); Hemoglobin 9.9 g/dL (11.5-16.0); IMMATURE GRAN ABSOLUTE AUTO 0.11 K/mm3 (0.00-0.10); IMMATURE GRAN PERCENT AUTO 1 % (0-1); LYMPHOCYTES ABSOLUTE AUTO 1.04 K/mm3 (0.84-5.20); LYMPHOCYTES PERCENT AUTO 8 % (21-46); MONOCYTES ABSOLUTE AUTO 0.25 K/mm3 (0.16-1.47); MONOCYTES PERCENT AUTO 2 % (4-13); Mean Corpuscular HGB 33.3 pg (26.0-34.0); Mean Corpuscular HGB Conc 34.1 g/dL (31.5-36.5); Mean Corpuscular Volume 98 fL (80-100); Mean Platelet Volume 9.8 fL (9.1-12.4); NEUTROPHILS PERCENT AUTO 89 % (41-73); Platelet Count 449 K/mm3 (150-400); RDW Coefficient Variation 15.8 % (11.7-14.2); RDW Standard Deviation 54.4 fL (35.1-46.3); Red Blood Cell Count 2.97 M/mm3 (3.80-5.20); White Blood Cell Count 13.02 K/mm3 (4.00-11.30)
[2019-11-25 05:37] LABS: Bun/Creatinine Ratio 14.9 (12.0-20.0); Calcium, Blood 8.2 mg/dL (8.5-10.1); Creatinine, Blood 1.34 mg/dL (0.40-1.00); Potassium, Blood 4.3 mmol/L (3.5-5.5)
--- NOTE | 2019-11-25 06:37 | NUR ---
NO ACUTE CHANGES THIS SHIFT. REMAINS ON LEVOPHED AT 3MCG/MIN. NO SIGN OF DISTRESS.
--- NOTE | 2019-11-25 08:00 | NUR ---
INITIAL ASSESSMENT PATIENT ALERT AND ORIENTED X 4. PATIENT APPEARS FLAT AND WITHDRAWN. PATIENT APPEARS IRRITABLE THIS AM. PATIENT HAS NO COMPLAINTS OF PAIN THIS AM. PATIENT AFEBRILE. PATIENT WEAK BUT ABLE TO ASSIST WITH REPOSITIONING. PATIENT SATTING 90% AND GREATER ON RA. LUNGS CLEAR IN UPPER LOBES AND DIMINISHED IN LOWER LOBES. PATIENT DENIES COUGH. PATIENT IN A.FIB, HR 70S TO 80S. BP STABLE ON LEVOPHED AT 3 MCG/ MINUTE. PATIENT ON SCHEDULED MIDODRINE AND STEROIDS. PATIENT INCONTINENT OF STOOL. ABDOMEN DISTENDED, FIRM, HYPOACTIVE BS NOTED. CLAYTON IN PLACE DRAINING DARK YELLOW COLORED URINE. PATIENT HAS SCATTERED BRUISING. BLES AND ABDOMEN NOTED TO HAVE 3+ EDEMA. DRESSING C/D/I TO LUE SKIN TEAR. DRESSING TO LLE C/D/I. WOUND VAC AND DRESSING C/D/I TO LLE WOUND; DRESSING CHANGED YESTERDAY. BED LOW, CALL LIGHT IN REACH. WILL CONTINUE TO MONITOR PATIENT FREQUENTLY THROUGHOUT SHIFT.
--- NOTE | 2019-11-25 10:22 | NUR ---
DR. LEY IN ROOM TO SEE PATIENT. INFORMED THAT WBCS INCREASING. INFORMED THAT SODIUM 131 THIS AM. INFORMED THAT PATIENT ONLY HAD 100 CC URINE OUT ON ANALOG DESIGN ENGINEER. NO ORDERS RECEIVED AT THIS TIME.
--- NOTE | 2019-11-25 12:00 | NUR ---
PATIENT REMAINS AFEBRILE. PATIENT REFUSED TO GET OOB TO CHAIR. PATIENT INFORMED THAT SHE WILL NOT GET BETTER OR STRONGER IF SHE DOES NOT GET OUT OF BED. PATIENT SAYS "I KNOW". PATIENT REMAINS IN A. FIB, HR 60S TO 80S. BP STABLE ON LEVOPHED AT 2 MCG/ MINUTE. NO OTHER ACUTE CHANGES TO NOTE ON AT THIS TIME. NO COMPLAINTS OF PAIN. WILL CONTINUE TO MONITOR.
--- NOTE | 2019-11-25 13:57 | NUR ---
DR. LEY INFORMED THAT PATIENT HAS ONLY HAD 75 CC URINE OUT THUS FAR THIS SHIFT. LOOKED AT RESULTS OF RENAL US. STATED SHE WOULD PLACE ORDERS.
--- NOTE | 2019-11-25 15:40 | NUR ---
DR. MACHUCA IN ROOM TO SEE PATIENT AFTER SPEAKING WITH DR. LEY.
--- NOTE | 2019-11-25 16:22 | NUR ---
PATIENT RESTING QUIETLY UPON ENTERING ROOM. PATIENT AFEBRILE. PATIENT GIVEN PRN TUMS FOR COMPLAINT OF INDIGESTION. PATIENT ALERT AND ORIENTED TO ALL QUESTIONS, HOWEVER DOES SEEM CONFUSED AT TIMES. PATIENT STATED SHE WAS READY FOR HER BED BATH NOW. PATIENT INFORMED THAT SHE RECEIVED HER BED BATH ALREADY TODAY. PATIENT REMAINS SATTING 90% AND GREATER ON RA. PATIENT REMAINS IN A.FIB, HR 60S TO 70S. BP STABLE ON LEVOPHED AT 3 MCG/ MINUTE. 24 HOUR URINE COLLECTION STARTED. NO OTHER ACUTE CHANGES TO NOTE ON AT THIS TIME. WILL CONTINUE TO MONITOR.
--- NOTE | 2019-11-25 18:40 | NUR ---
SHIFT SUMMARY PATIENT REMAINED MOSTLY ALERT AND ORIENTED, BUT DID HAVE SOME CONFUSION AT TIMES. PATIENT REMAINED AFEBRILE. PATIENT HAD ONE COMPLAINT OF INDIGESTION AND RECEIVED PRN TUMS. NO OTHER COMPLAINTS OF PAIN. PATIENT REFUSED TO GET OOB TO CHAIR TODAY. PATIENT MOSTLY NAPPED ON AND OFF. PATIENT REMAINED SATTING 90% AND GREATER ON RA. PATIENT REMAINED IN A.FIB, HR 60S TO 80S. BP REMAINED STABLE ON LEVOPHED FROM 1 TO 3 MCG/ MINUTE. PATIENT REMAINED INCONTINENT OF STOOL. PATIENT HAD TWO PASTY, ALVAREZ STOOLS THIS SHIFT. PATIENT CONTINUED TO HAVE POOR APPETITE. CLAYTON DRAINED 385 MLS OF DARK YELLOW URINE THIS SHIFT. PATIENT RECEIVED ALBUMIN AND BUMEX PER DR. MACHUCA THAT IS NOW ON THE CASE. NO CHANGE TO SKIN. PATIENT REPOSITIONED T/O SHIFT. NS TKO. LEVOPHED CURRENTLY AT 3 MCG/ MINUTE. PATIENT HAD US RENAL/ BLADDER TODAY. PATIENT HAD COMPLETE BED BATH. 24 HOUR URINE BEING COLLECTED. PATIENT HAS NO COMPLAINTS AT THIS TIME. BED LOW, CALL LIGHT IN REACH. REPORT WILL BE GIVEN TO ASSUMING MANNEQUIN COLORING ARTIST NURSE SHORTLY.
--- NOTE | 2019-11-25 21:24 | NUR ---
PT RESTING IN BED. A/O BUT WILL HAVE NON SENSICAL CONVERSATION AT TIMES. SHE WAS SAYING THAT "HE WAS SUPPOSED TO COME IN AND FIX MY LEG". COULD NOT UNDERSTAND WHAT PT MEANT BY THIS. GETS IRRITABLE QUICKLY. REPOSITIONED PT FOR COMFORT. SEE ASSESSMENT.
[2019-11-26 05:38] LABS: Anion Gap 7 mmol/L (6-16); Blood Urea Nitrogen 23 mg/dL (8-24); Bun/Creatinine Ratio 14.4 (12.0-20.0); CO2, Blood 27 mmol/L (21-32); Calcium, Blood 8.1 mg/dL (8.5-10.1); Chloride, Blood 98 mmol/L (98-108); Glomerular Filtration Rate 34 (60-); Glucose, Blood 109 mg/dL (70-99); Magnesium, Blood 2.2 mg/dL (1.6-2.4); Sodium, Blood 132 mmol/L (136-145)
--- NOTE | 2019-11-26 07:05 | NUR ---
SUMMARY PT HAD NO ACUTE CHANGES. ON LEVOPHED. TRIED TO TITRATE OFF BUT BP DROPS QUICKLY WITH SBP'S IN THE 60'S. WAS INITIALLY HAVING NON SENSICAL CONVERSATION BUT NEVER HAD ANY MORE EPISODES. NO SIGN OF DISTRESS. CALL LIGHT IN REACH.
--- NOTE | 2019-11-26 08:15 | NUR ---
INITIAL ASSESSMENT PATIENT ALERT AND ORIENTED TO ALL QUESTIONS THIS AM EXCEPT TO DATE. PATIENT STATED IT WAS 1994. PATIENT REORIENTED. PATIENT FLAT, WITHDRAWN AND IRRITABLE AT TIMES. PATIENT IS COOPERATIVE. PATIENT WEAK BUT ABLE TO ASSIST WITH REPOSITIONING. PATIENT GIVEN PRN TYLENOL THIS AM FOR COMPLAINTS OF PAIN IN LEFT FOOT WHERE WOUND IS LOCATED. AREA CLEANSED AND DRESSING ALSO CHANGED. PATIENT AFEBRILE. PATIENT SATTING 90% AND GREATER ON RA. LUNGS CLEAR IN UPPER LOBES AND DIMINISHED IN LOWER LOBES. PATIENT DENIES COUGH. PATIENT IN A. FIB, HR 50S TO 70S. BP STABLE ON LEVOPHED AT 3 MCG/ MINUTE. PATIENT RECEIVING SCHEDULED MIDODRINE. PATIENT REMAINS INCONTINENT OF STOOL. POOR APPETITE. PATIENT COMPLAINING THAT CAFETERIA CONTINUES TO SEND TOO MUCH FOOD DESPITE ASKING FOR HALF PORTIONS. CLAYTON DRAINING MINIMAL AMOUNT OF DARK YELLOW COLORED URINE. 24 HOUR URINE COLLECTION CONTINUES FROM YESTERDAY. WOUND VAC IN PLACE TO WOUND ON LLE. SCATTERED BRUISING NOTED. DRESSING C/D/I TO LUE SKIN TEAR. PATIENT HAS 3-4+ PITTING EDEMA TO ABDOMEN, THIGHS, BLES. NS TKO. BED LOW, CALL LIGHT IN REACH. WILL CONTINUE TO MONITOR FREQUENTLY THROUGHOUT SHIFT.
--- NOTE | 2019-11-26 10:08 | NUR ---
DR. LEY UPDATED ON PATIENT STATUS. INFORMED THAT PATIENT ANSWERED ALL ORIENTATION QUESTIONS CORRECTLY THIS AM EXCEPT SHE STATED THAT IT WAS THE YEAR 1993. INFORMED DOCTOR THAT HR DOWN TO 50S AND RANGING FROM 50S TO 70S. INFORMED THAT PATIENT ON LEVOPHED AT 3 MCG/ MINUTE. INFORMED THAT PATIENT RECEIVED ALBUMIN AND BUMEX THIS AM PER DR. MACHUCA ORDERS. INFORMED THAT PATIENT GIVEN PRN TYLENOL THIS AM FOR COMPLAINT OF L FOOT PAIN WHERE WOUND IS. INFORMED THAT NURSE ALSO CLEANSED AREA AND PLACED DRESSING AFTER GIVING TYLENOL. INFORMED THAT PATIENT REPORTS NO RELIEF AFTER PRN TYLENOL. PATIENT ASKED WHAT SHE TAKES AT HOME FOR PAIN AND SHE STATES "TYLENOL". STATED SHE WOULD LOOK AT PATIENT CHART. NO ORDERS RECEIVED AT THIS TIME.
--- NOTE | 2019-11-26 12:47 | NUR ---
PATIENT RESTING QUIETLY IN BED, EATING LUNCH. PATIENT AFEBRILE. PATIENT HAS NO COMPLAINTS OF PAIN. PATIENT REMAINS SATTING 90% AND GREATER ON RA. PATIENT REMAINS IN A. FIB WITH HR 50S TO 80S. BP STABLE ON 2 MCG/ MINUTE OF LEVOPHED. NO OTHER ACUTE CHANGES TO NOTE ON AT THIS TIME. WILL CONTINUE TO MONITOR.
--- NOTE | 2019-11-26 16:30 | NUR ---
PATIENT RESTING QUIETLY IN CHAIR, LOOKING OUT WINDOW TO OUTSIDE. PATIENT AFEBRILE. NO COMPLAINTS. HR 50S TO 60S. BP STABLE ON LEVOPHED AT 1 MCG/ MINUTE. 24 HOUR URINE COLLECTION COMPLETE. NO OTHER ACUTE CHANGES TO NOTE ON AT THIS TIME. WILL CONTINUE TO MONITOR.
[2019-11-26 16:43] LABS: Protein, Urine Quantitative 15.2 mg/dL (0.0-11.9)
--- NOTE | 2019-11-26 18:18 | NUR ---
SHIFT SUMMARY PATIENT REMAINED MOSTLY ALERT AND ORIENTED. SOME SLIGHT CONFUSION AT TIMES. PATIENT REMAINED FLAT, WITHDRAWN AND IRRITABLE/ SHORT AT TIMES. PATIENT REMAINED WEAK BUT ABLE TO MOVE ALL EXTREMITIES. PATIENT OOB TO CHAIR TODAY. 2 PERSON ASSIST WITH GAIT BELT ATTEMPTED, HOWEVER PATIENT SO WEAK THAT UNABLE TO STAND. CEILING LIFT USED. PATIENT REMAINED AFEBRILE. PATIENT GIVEN PRN TYLENOL OT THIS SHIFT FOR COMPLAINT OF LEFT FOOT. PATIENT REMAINED SATTING 90% AND GREATER ON RA. PATIENT REMAINED IN A. FIB, HR 50S TO 80S. BP STABLE ON LEVOPHED RANGING FROM 2-3 MCG/ MINUTE. PATIENT HAD 3 INCONTINENT PASTY/ LOOSE STOOLS THIS SHIFT. PATIENT CONTINUED TO HAVE POOR APPETITE. CLAYTON DRAINED ADEQUATE AMOUNT OF YELLOW COLORED URINE. 24 HOUR URINE COLLECTION COMPLETE THIS SHIFT. PATIENT RECEIVED ALBUMIN AND BUMEX THIS AM PER DR. MACHUCA. NO CHANGE TO SKIN. DRESSING TO LEFT ANKLE WOUND CHANGED TODAY. PATIENT REPOSITIONED T/O SHIFT. CALAZIME CREAM BEING APPLIED TO REDDENED/ EXCORIATED BUTTOCKS/ ACACIA AREA. NS TKO. PATIENT RECEIVED COMPLETE BED BATH THIS SHIFT. PATIENT BACK TO BED, NO COMPLAINTS AT THIS TIME. BED LOW, CALL LIGHT IN REACH. REPORT WILL BE GIVEN TO ONCOMING CHANGE MANAGEMENT DIRECTOR NURSE SHORTLY.
--- NOTE | 2019-11-26 20:00 | NUR ---
ASSESSMENT/ ASSUMED CARE PT SITTING UP IN BED EATING DINNER. STATES," I'M DONE WITH THIS AND TAKES DENTURES OUT". WHEN ASKED PT WERE SHE IS AND WHAT YEAR IT IS PT STATES," I'M IN [place]. I DON'T KNOW WHERE I'M AT, BUT IT IS 1946. WHY DO YOU KEEP ASKING ME THE SAME QUESTIONS"? EXPLAINED ABOUT ORIENTATION. REORIENTED TO DATE AND PLACE. PT STATES," I KNOW THAT". PT FOLLOWING INSTRUCTIONS. LUNGS CLEAR BUT DECREASED IN THE BASES ON ROOMAIR. RESP EVEN AND NONLABORED. HEART RATE IRREGULAR-AFIB. BP STABLE ON LEVOPHED AT 1 MCQ/MIN WITH NS AT 10 ML/HR. GENERAL EDEMA. BT+ HYPOACTIVE. DENIES N/V. CENTRAL LINE TO RIGHT SUBCLAVIAN, DRSG INTACT. CLAYTON CATH PATENT DRAINING CLEAR YELLOW URINE. REPOSTIONED TO LEFT WITH HOB UP. FOAM DRSG TO RIGHT ELBOW, LEFT UPPER ARM AND COCCYX CD&I. WOUND VAC TO LEFT LEG INTACT.
[2019-11-27 03:58] LABS: BASOPHILS ABSOLUTE AUTO 0.01 K/mm3 (0.00-0.23); BASOPHILS PERCENT AUTO 0 % (0-2); EOSINOPHILS ABSOLUTE AUTO 0.03 K/mm3 (0.00-0.68); EOSINOPHILS PERCENT AUTO 0 % (0-6); Hematocrit 27.1 % (33.0-51.0); IMMATURE GRAN PERCENT AUTO 1 % (0-1); LYMPHOCYTES ABSOLUTE AUTO 1.26 K/mm3 (0.84-5.20); LYMPHOCYTES PERCENT AUTO 11 % (21-46); MONOCYTES ABSOLUTE AUTO 0.55 K/mm3 (0.16-1.47); MONOCYTES PERCENT AUTO 5 % (4-13); Mean Corpuscular HGB 33.1 pg (26.0-34.0); Mean Corpuscular HGB Conc 33.2 g/dL (31.5-36.5); Mean Corpuscular Volume 100 fL (80-100); Mean Platelet Volume 9.1 fL (9.1-12.4); NEUTROPHILS ABSOLUTE AUTO 10.06 K/mm3 (1.96-9.15); NEUTROPHILS PERCENT AUTO 84 % (41-73); Platelet Count 380 K/mm3 (150-400); RDW Coefficient Variation 16.4 % (11.7-14.2); RDW Standard Deviation 57.2 fL (35.1-46.3); Red Blood Cell Count 2.72 M/mm3 (3.80-5.20); White Blood Cell Count 12.01 K/mm3 (4.00-11.30)
[2019-11-27 04:15] LABS: Albumin, Blood 2.2 g/dL (3.4-5.0); Anion Gap 7 mmol/L (6-16); Blood Urea Nitrogen 25 mg/dL (8-24); Bun/Creatinine Ratio 15.5 (12.0-20.0); CO2, Blood 28 mmol/L (21-32); Calcium, Blood 7.7 mg/dL (8.5-10.1); Chloride, Blood 100 mmol/L (98-108); Creatinine, Blood 1.61 mg/dL (0.40-1.00); Glomerular Filtration Rate 34 (60-); Glucose, Blood 86 mg/dL (70-99); Magnesium, Blood 2.2 mg/dL (1.6-2.4); Phosphorus, Blood 3.7 mg/dL (2.5-4.9); Potassium, Blood 3.6 mmol/L (3.5-5.5); Sodium, Blood 135 mmol/L (136-145)
--- NOTE | 2019-11-27 06:22 | NUR ---
SHIFT SUMMARY PT CONFUSED AT TIMES. REORIENTED FREQUENTLY. REPOSITIONED Q2HR FROM SIDE TO SIDE. LEVOPHED TITIRATED UP FROM 1 MCQ/MIN TO 3 MCQ/MIN DURING THE NIGHT. DR MACHUCA INTO SEE PT. NEW ORDERS FOR ALBUMIN AND BUMEX RECIEVED. CENTRAL LINE TO RIGHT SUBCLAVIAN DRSG INTACT. NS AT TKO WITH LEVOPHED. CLAYTON CATH PATENT DRAINING YELLOW URINE 389 ML OUT FOR THE SHIFT. NO STOOLS. REPORT TO ON COMING NURSE
--- NOTE | 2019-11-27 08:00 | NUR ---
PT AWAKE, ASKING TO BE REPOSITIONED. AM CARE DONE. REPOSITIONED TO GIVE BREAKFAST. A&O X2 ONLY. REDIRECTS WELL. C/O LEFT SHOULDER HURTING, REPOSTIONED OFF THAT AREA. CONTINUE TO MONITOR. BP STABLE WITH LEVOPHED GTT AT 3MCG/MIN. WILL TITRATE DOWN TOLERATED. CONTINUE TO TX PRN.
--- NOTE | 2019-11-27 12:20 | NUR ---
DR CERVANTES HERE, NEW ORDERS TO TX CHRONIC BACK PAIN, TRAMADOL ORDERED. WILL DECREASE LEVOPHED GTT BY 1MCG/MIN TO SEE IF BP STAYS STABLE. CONTINUE TO MONITOR.
--- NOTE | 2019-11-27 12:42 | NUR ---
SBP AND MAP NOT SUSTAINING PER PARAMETERS WITH LEVOPHED GTT AT 2MCG/MIN. INCREASE BACK TO 3MCG/MIN. MIDODRINE PO GIVEN PER ORDERS. CONTINUE TO TX PRN.
--- NOTE | 2019-11-27 18:43 | NUR ---
SHIFT SUMMARY PATIENT CONTINUES TO REQUIRE LEVOPHED GTT BUT ABLE TO DECREASE RATE TO 1MCG/MIN. NEW PARAMETERS TO KEEP MAP 60; TOLERATING WELL. C/O CHRONIC PAIN TO LOWER BACK, NEW MED ORDER; STARTED TRAMADOL PER ORDERS. TAKING PO INTAKE WITH POOR APPETITE NOTED. CONTINUES TO GENERALIZED EDEMA T/O, NEW ORDERS TO TREAT WITH X4 DOSES ALBUMIN IV. NO OTHER CHANGES NOTED. WILL REPORT OFF TO NOC SHIFT.
--- NOTE | 2019-11-27 20:47 | NUR ---
Assumed care of pt at 1900. Bedside report received, pt particpated. Pt alert and oriented, with minimal questions. I-TRACE performed, levophed running. MAP above 60, as ordered. No family at bedside. Call light in reach. Pt assessment as charted. f
[2019-11-28 04:37] LABS: BASOPHILS ABSOLUTE AUTO 0.05 K/mm3 (0.00-0.23); BASOPHILS PERCENT AUTO 1 % (0-2); EOSINOPHILS ABSOLUTE AUTO 0.14 K/mm3 (0.00-0.68); EOSINOPHILS PERCENT AUTO 1 % (0-6); Hematocrit 24.4 % (33.0-51.0); Hemoglobin 7.8 g/dL (11.5-16.0); IMMATURE GRAN ABSOLUTE AUTO 0.05 K/mm3 (0.00-0.10); IMMATURE GRAN PERCENT AUTO 1 % (0-1); LYMPHOCYTES ABSOLUTE AUTO 1.05 K/mm3 (0.84-5.20); LYMPHOCYTES PERCENT AUTO 11 % (21-46); MONOCYTES ABSOLUTE AUTO 0.38 K/mm3 (0.16-1.47); MONOCYTES PERCENT AUTO 4 % (4-13); Mean Corpuscular HGB 32.4 pg (26.0-34.0); Mean Corpuscular Volume 101 fL (80-100); Mean Platelet Volume 9.3 fL (9.1-12.4); NEUTROPHILS ABSOLUTE AUTO 7.99 K/mm3 (1.96-9.15); NEUTROPHILS PERCENT AUTO 83 % (41-73); Platelet Count 330 K/mm3 (150-400); RDW Coefficient Variation 16.8 % (11.7-14.2); RDW Standard Deviation 59.1 fL (35.1-46.3); Red Blood Cell Count 2.41 M/mm3 (3.80-5.20); White Blood Cell Count 9.66 K/mm3 (4.00-11.30)
[2019-11-28 04:52] LABS: Anion Gap 6 mmol/L (6-16); Blood Urea Nitrogen 23 mg/dL (8-24); Bun/Creatinine Ratio 14.3 (12.0-20.0); CO2, Blood 29 mmol/L (21-32); Calcium, Blood 7.7 mg/dL (8.5-10.1); Chloride, Blood 101 mmol/L (98-108); Creatinine, Blood 1.61 mg/dL (0.40-1.00); Glomerular Filtration Rate 34 (60-); Glucose, Blood 77 mg/dL (70-99); Magnesium, Blood 2.2 mg/dL (1.6-2.4); Phosphorus, Blood 2.9 mg/dL (2.5-4.9); Potassium, Blood 3.1 mmol/L (3.5-5.5); Sodium, Blood 136 mmol/L (136-145)
--- NOTE | 2019-11-28 05:36 | NUR ---
SPOKE WITH DR. MACHUCA ABOUT PT'S MORNING H&H. STATED HE WAS SEE THE LABS WHEN HE GOT HERE.
--- NOTE | 2019-11-28 05:58 | NUR ---
PT HAS SLEPT SOME OF THE SHIFT, BUT BEEN AWAKE AND PLEASANT MOST. PT USES CALL LIGHT APPROPRIATELY FOR REPOSITIONING. PT URINE OUTPUT IMPROVED FROM PREVIOUS, BUT IS STILL VERY EDEMATOUS. PT PAIN IS IMPROVED WITH ULTRAM DOSING, NO REQUESTS FOR FURTHER MEDICATIONS. PT'S BLOOD PRESSURES SOFTENED IN THE NIGHT, REQUIRING A SMALL INCREASE IN LEVOPHED.
--- NOTE | 2019-11-28 08:30 | NUR ---
PT AWAKE, SITTING UP IN BED EATING BREAKFAST. DENIES NO PAIN ONLY ITCHING TO BACK AREA. ABD VERY DISTENDED WITH ASCITES NOTED AND GENERALIZED EDEAM GREATER TO TRUNK AREA DOWN TO FEET; TENDER TO TOUCH. POOR APPETITE NOTED. CONTINUE NEEDING LEVOPHED GTT AT 2MCG IV TO KEEP MAP 60. ENCOURAGE TO INCREASE ACTIVITY TODAY, PATIENT WILLING TO PARTICIPATE. CONTINUE TO TX PER ORDERS.
--- NOTE | 2019-11-28 17:05 | NUR ---
SHIFT SUMMARY PT A&O X3. VERY PLEASANT AND COOPERATIVE WITH CARE. CONTINUES TO EDEMA MORE SO TO TRUNK AND LE'S WITH SLIGHT IMPROVEMENT FROM YESTERDAY NOTED. DENIES NO SOB, LUNGS CLEAR DECREASE BASES. ABD DISTENDED WITH ASCITES NOTED. POOR APPETITE CONTINUES. SPOKE WITH DIETICAN TO MODIFY MEALS TO INCREASE TOTAL PROTEIN 70G/DAY PER DR TOBIAS. ALBUMIN ORDERED X3 DOSE GIVEN, X1 DOSE REMAINING. ADDITIONAL K-RIDER GIVEN WITH K LEVEL 3.[address] MACHUCA. DIURESISING WELL. INCREASE ACTIVITY TODAY WITH PT UP TO CHAIR WITH WEIGHT BEARING; TOLERATED WELL. LEVOPHED GTT TITRATED OFF, VSS. GOOD PAIN CONTROL, REFUSED AFTERNOONS PAIN MED. NO OTHER CHANGES NOTED. WILL REPORT OFF TO NOC SHIFT.
--- NOTE | 2019-11-28 20:35 | NUR ---
pt in intesivist reviewed plan of care and prognosis and code status.
--- NOTE | 2019-11-28 22:48 | NUR ---
PATIENT RESTING IN BED, C/O HIP AND SHOULDER PAIN, ASSISTING WITH REPOSITIONING TO RIGHT SIDE, BUT VERY WEAK AND DIFFICULT TO MOVE HER LEGS DUE TO SWELLING. PROVIDING GOOD PAIN RELIEF. PATIENT ALSO C/O ITCHING FEELING TO BACK. WOUND VAC IN PLACE TO LEFT LEG. LEVOPHED DRIP REMAINS OFF.
--- NOTE | 2019-11-29 00:20 | NUR ---
PATIENT APPEARS TO BE SLEEPING, BIOX 87-88% ON RA, PATIENT AWAKENS EASILY TO SLIGHT STIMULI. 2L/NC PLACED WHILE SLEEPING.
[2019-11-29 03:56] LABS: BASOPHILS ABSOLUTE AUTO 0.05 K/mm3 (0.00-0.23); BASOPHILS PERCENT AUTO 1 % (0-2); EOSINOPHILS ABSOLUTE AUTO 0.08 K/mm3 (0.00-0.68); EOSINOPHILS PERCENT AUTO 1 % (0-6); Hematocrit 23.4 % (33.0-51.0); Hemoglobin 7.7 g/dL (11.5-16.0); IMMATURE GRAN ABSOLUTE AUTO 0.03 K/mm3 (0.00-0.10); IMMATURE GRAN PERCENT AUTO 0 % (0-1); LYMPHOCYTES ABSOLUTE AUTO 0.79 K/mm3 (0.84-5.20); LYMPHOCYTES PERCENT AUTO 9 % (21-46); MONOCYTES ABSOLUTE AUTO 0.28 K/mm3 (0.16-1.47); MONOCYTES PERCENT AUTO 3 % (4-13); Mean Corpuscular HGB 33.9 pg (26.0-34.0); Mean Corpuscular HGB Conc 32.9 g/dL (31.5-36.5); Mean Corpuscular Volume 103 fL (80-100); Mean Platelet Volume 9.4 fL (9.1-12.4); NEUTROPHILS PERCENT AUTO 87 % (41-73); Platelet Count 294 K/mm3 (150-400); RDW Coefficient Variation 17.1 % (11.7-14.2); RDW Standard Deviation 60.2 fL (35.1-46.3); Red Blood Cell Count 2.27 M/mm3 (3.80-5.20); White Blood Cell Count 9.23 K/mm3 (4.00-11.30)
[2019-11-29 04:14] LABS: Albumin, Blood 3.5 g/dL (3.4-5.0); Anion Gap 6 mmol/L (6-16); Blood Urea Nitrogen 21 mg/dL (8-24); Bun/Creatinine Ratio 13.6 (12.0-20.0); CO2, Blood 30 mmol/L (21-32); Calcium, Blood 7.5 mg/dL (8.5-10.1); Chloride, Blood 102 mmol/L (98-108); Creatinine, Blood 1.54 mg/dL (0.40-1.00); Glomerular Filtration Rate 35 (60-); Glucose, Blood 69 mg/dL (70-99); Magnesium, Blood 2.1 mg/dL (1.6-2.4); Phosphorus, Blood 2.7 mg/dL (2.5-4.9); Potassium, Blood 3.4 mmol/L (3.5-5.5); Sodium, Blood 138 mmol/L (136-145)
--- NOTE | 2019-11-29 07:36 | NUR ---
SUMMARY PATIENT RESTING QUIETLY T/O NIGHT, GENERALIZED WEAKNESS, ASSISTING WITH REPOSITIONING. GENERALIZED EDEMA CONTINUES, PITTING EDEMA FROM WAIST DOWN. WOUND VAC IN PLACE TO LEFT LEG, AND DRESSING TO LEFT FOOT REMAINS C,D&I. OXYGEN PLACED AT 2L/NC WHILE SLEEPING DUE TO BIOX 88%. HYPOTENSION CONTINUES, GOAL TO HAVE MAP 55. LEVOPHED REMAINS OFF. DOCTOR BRIGETTE AWARE OF AM LABS SEE NEW ORDERS.
--- NOTE | 2019-11-29 13:40 | NUR ---
TRANSFER OF CARE REPORT CALLED TO KEMAL FINNEGAN ON MEDICAL. CENTRAL LINE RECENTLY REMOVED AND PT TOLERATED. PT TRANSFERRED TO ROOM 363. BELONGINGS GATHERED AND TRANSPORTED WITH PT. PT TRANSPORTED IN BED AND ESCORTED BY LOLA RONDON.
--- NOTE | 2019-11-29 15:58 | NUR ---
SUMMARY PT TRANSFERRED UP FROM ICU, PT IS ALERT AND ORIENTED, MAX ASSIST, ABLE TO TAKE PILLS WHOLE AND FEED HERSELF, HAS A CLAYTON CATHETER IN PLACE, DRAINING WELL, SL L FA FLUSHES WELL, PT HAS A WOUND VAC TO HER L CONDON THAT WAS CHANGED AFTER SHE RECIEVED HER AFTERNOON PAIN MEDICATION, WOUND BED IS SHALLOW, AND PINK, PT AGUSTINA WELL, ORIENTED PT TO ROOM AND CALL SYSTEM, PT HAS BEEN PLEASANT AND COOPERATIVE WITH CARE, WILL CONT TO MONITOR
--- NOTE | 2019-11-29 17:16 | NUR ---
CALLED DR. LYNCH, CLARIFIED THAT I SHOULD GIVE EVENING DOSE OF XARELTO, IN LIGHT OF UNIT OF PRBC ORDERED.
--- NOTE | 2019-11-29 17:25 | NUR ---
RECEIVED REPORT ON PATIENT AT 1630; IV ABX COMPLETED. PATIENT BATHED AND SAT UP. ASCITES NOTED, WOUND VAC TO RIGHT LEG NOTED. PERIPHERAL IV WNL. SPOKE WITH PETER REGARDING PATIENT'S HOME WOUND VAC, PRESENT IN THE CLOSET. HE WILL QA TEST ANALYST TOMORROW.PATIENT REPORTS BEING COMFORTABLE AT THIS TIME.
[2019-11-29 17:37] LABS: Hemoglobin 8.1 g/dL (11.5-16.0); Mean Corpuscular HGB 33.5 pg (26.0-34.0); Mean Corpuscular HGB Conc 32.4 g/dL (31.5-36.5); Mean Corpuscular Volume 103 fL (80-100); Mean Platelet Volume 9.5 fL (9.1-12.4); Platelet Count 317 K/mm3 (150-400); RDW Coefficient Variation 17.5 % (11.7-14.2); Red Blood Cell Count 2.42 M/mm3 (3.80-5.20); White Blood Cell Count 9.29 K/mm3 (4.00-11.30)
--- NOTE | 2019-11-29 19:43 | NUR ---
SHIFT SUMMARY/BLOOD TRANSFUSION PATIENT BLOOD TRANSFUSION BEGAN AT 1840. PATIENT WITHOUT S/SX OF BLOOD TRANSFUSION REACTION WITHIN FIRST 15-30 MINUTES. ROUNDED WITH KEMAL CHRISTINA AT PATIENT BEDSIDE FOR HANDOFF, CHECKED BLOOD INFUSING AND VITAL SIGNS.
[2019-11-30 04:31] LABS: BASOPHILS ABSOLUTE AUTO 0.09 K/mm3 (0.00-0.23); BASOPHILS PERCENT AUTO 1 % (0-2); EOSINOPHILS ABSOLUTE AUTO 0.15 K/mm3 (0.00-0.68); EOSINOPHILS PERCENT AUTO 2 % (0-6); Hematocrit 30.5 % (33.0-51.0); Hemoglobin 9.9 g/dL (11.5-16.0); IMMATURE GRAN ABSOLUTE AUTO 0.07 K/mm3 (0.00-0.10); IMMATURE GRAN PERCENT AUTO 1 % (0-1); LYMPHOCYTES ABSOLUTE AUTO 0.68 K/mm3 (0.84-5.20); LYMPHOCYTES PERCENT AUTO 7 % (21-46); MONOCYTES ABSOLUTE AUTO 0.37 K/mm3 (0.16-1.47); MONOCYTES PERCENT AUTO 4 % (4-13); Mean Corpuscular HGB 32.2 pg (26.0-34.0); Mean Corpuscular HGB Conc 32.5 g/dL (31.5-36.5); Mean Platelet Volume 9.8 fL (9.1-12.4); NEUTROPHILS ABSOLUTE AUTO 8.98 K/mm3 (1.96-9.15); NEUTROPHILS PERCENT AUTO 87 % (41-73); Platelet Count 321 K/mm3 (150-400); RDW Coefficient Variation 20.2 % (11.7-14.2); Red Blood Cell Count 3.07 M/mm3 (3.80-5.20); White Blood Cell Count 10.34 K/mm3 (4.00-11.30)
[2019-11-30 04:35] LABS: Mean Corpuscular Volume 99 fL (80-100)
[2019-11-30 04:46] LABS: Albumin, Blood 3.6 g/dL (3.4-5.0); Anion Gap 6 mmol/L (6-16); Blood Urea Nitrogen 20 mg/dL (8-24); Bun/Creatinine Ratio 13.3 (12.0-20.0); CO2, Blood 31 mmol/L (21-32); Calcium, Blood 7.7 mg/dL (8.5-10.1); Chloride, Blood 101 mmol/L (98-108); Glomerular Filtration Rate 36 (60-); Glucose, Blood 63 mg/dL (70-99); Magnesium, Blood 2.2 mg/dL (1.6-2.4); Phosphorus, Blood 2.6 mg/dL (2.5-4.9); Potassium, Blood 3.5 mmol/L (3.5-5.5); Sodium, Blood 138 mmol/L (136-145)
--- NOTE | 2019-11-30 04:49 | NUR ---
WEIGH AND CHARGE WORKER SUMMARY Slept off and on most of night. IV in left wrist very positional. Staff unable to restart IV. arm board placed so patient would receive IV PRBC and antibiotics. Incontinent of small very loose stool with urine. gina area and gluteal fold areas very red. Silicone cream gently rubbed onto areas after cleansed. Patient c/o dry skin "itching" which she states is chronic. silicone lotion rubbed over back after 1st turning. Left goodman wound dressing intact with wound vac running at 120mmhg without complications
--- NOTE | 2019-11-30 18:14 | NUR ---
SHIFT SUMMARY- PT IS A/O, PLESANT AND COOPERATIVE. SHE IS RECIEVING DIRUETS AND HAS A LARGE AMOUNT OF OUTPUT. CLAYTON IN PLACE. SHE HAS SOME REDNESS AROUND HER ACACIA AREA ORDERED NYSTATIAN POWDER TO APPLY TO THE AREA. HER ABDOMEN IS DISTENDED, REPOSITIONED PT FREQUENTLY DRUING THIS SHIFT. APPLIED LOTION TO HER BACK BECAUSE SHE C/O ITCHING. SHE IS EATING AND DRINKING WELL
[2019-12-01 04:20] LABS: BASOPHILS PERCENT AUTO 1 % (0-2); EOSINOPHILS ABSOLUTE AUTO 0.18 K/mm3 (0.00-0.68); EOSINOPHILS PERCENT AUTO 2 % (0-6); Hematocrit 31.1 % (33.0-51.0); Hemoglobin 10.2 g/dL (11.5-16.0); IMMATURE GRAN ABSOLUTE AUTO 0.05 K/mm3 (0.00-0.10); IMMATURE GRAN PERCENT AUTO 1 % (0-1); LYMPHOCYTES ABSOLUTE AUTO 0.81 K/mm3 (0.84-5.20); LYMPHOCYTES PERCENT AUTO 9 % (21-46); MONOCYTES ABSOLUTE AUTO 0.53 K/mm3 (0.16-1.47); MONOCYTES PERCENT AUTO 6 % (4-13); Mean Corpuscular HGB 32.6 pg (26.0-34.0); Mean Corpuscular HGB Conc 32.8 g/dL (31.5-36.5); Mean Corpuscular Volume 99 fL (80-100); NEUTROPHILS ABSOLUTE AUTO 7.71 K/mm3 (1.96-9.15); NEUTROPHILS PERCENT AUTO 82 % (41-73); Platelet Count 333 K/mm3 (150-400); RDW Coefficient Variation 19.9 % (11.7-14.2); RDW Standard Deviation 68.4 fL (35.1-46.3); Red Blood Cell Count 3.13 M/mm3 (3.80-5.20); White Blood Cell Count 9.38 K/mm3 (4.00-11.30)
--- NOTE | 2019-12-01 04:21 | NUR ---
SHIFT SUMMARY PT HAS HAD NO ACUTE CHANGES THIS SHIFT, NO COMPLAINTS OF ANY KIND, REPOS Q2 (OR MORE OFTEN PT REQUESTS), SOFTWARE PROJECT LEAD AT BEDSIDE AT THIS TIME, CALL LIGHT IN REACH, BED ALARM ACTIVE, WILL CONT TO MONITOR UNTIL REPORT GIVEN TO DAY RN.
[2019-12-01 04:45] LABS: Anion Gap 8 mmol/L (6-16); Blood Urea Nitrogen 18 mg/dL (8-24); Bun/Creatinine Ratio 12.8 (12.0-20.0); CO2, Blood 28 mmol/L (21-32); Calcium, Blood 7.8 mg/dL (8.5-10.1); Chloride, Blood 101 mmol/L (98-108); Creatinine, Blood 1.41 mg/dL (0.40-1.00); Glomerular Filtration Rate 39 (60-); Glucose, Blood 63 mg/dL (70-99); Magnesium, Blood 2.1 mg/dL (1.6-2.4); Phosphorus, Blood 2.4 mg/dL (2.5-4.9); Potassium, Blood 3.5 mmol/L (3.5-5.5); Sodium, Blood 137 mmol/L (136-145)
--- NOTE | 2019-12-01 13:49 | NUR ---
ASSUMED CARE ASSUMED CARE OF PT. PT PERSONAL CARE COMPLETED. THIS RN OBSERVES NO CHANGES IN PREVIOUS NURSE ASSESSMENT. WILL CONTINUE TO MONITOR.
[2019-12-01 14:34] LABS: Albumin, Blood 3.2 g/dL (3.4-5.0); Albumin/Globulin Ratio 1.2 (0.8-1.8); Bilirubin, Direct 0.3 mg/dL (0.0-0.3); Bilirubin, Indirect 0.5 mg/dL (0.1-0.7); Bilirubin, Total 0.8 mg/dL (0.1-1.0); Globulin, Blood 2.7 g/dL (2.2-4.0); Total Protein, Blood 5.9 g/dL (6.4-8.2)
[2019-12-01 14:40] LABS: International Normalized Ratio 1.21; Prothrombin Time Results 12.8 Sec (9.7-11.5)
--- NOTE | 2019-12-01 16:56 | NUR ---
SHIFT SUMMARY PT HAD ABD CT COMPLETED THIS SHIFT. BLOOD PRESSURE STABLE AT 103/63. NO PRN MIDODRINE NEEDED THIS SHIFT. PT HAD ST EVAL COMPLETED FOR COGNITIVE EXAM. SEE NOTE. PT STILL VERY SLOW TO RESPOND AND HAS HAD A POOR APPETITITE THROUGHOUT SHIFT. ABD VERY DISTENDED & FIRM. PT UNINTERESTED IN CARE. NOTIFIED EARLIER IN SHIFT BY KEMAL ANDREWS ABOUT PT MENTATION. PAIN MEDS CHANGED AND ST EVAL ORDERED FOR THAT REASON. PT WOUND VAC CHANGED & WOUND PHOTOGRAPHED THIS SHFIT. CLAYTON INTACT & DRAINING WELL. NO OTHER CHANGES IN ASSESSEMENT AT THIS TIME. VSS. WILL CONTINUE TO MONITOR UNTIL TURNOVER IS COMPLETE.
--- NOTE | 2019-12-01 19:25 | NUR ---
RECEIVED REPORT FROM DAY SHIFT RN. ASSUMED CARE OF PT. RESTING COMFORTABLY AT THIS TIME, IN NO ACUTE DISTRESS AT THIS TIME. DENIES ANY NEEDS AT THIS TIME, CALL LIGHT AND POSSESSIONS IN REACH, WILL CONTINUE TO MONITOR.
[2019-12-02 04:58] LABS: BASOPHILS ABSOLUTE AUTO 0.09 K/mm3 (0.00-0.23); BASOPHILS PERCENT AUTO 1 % (0-2); EOSINOPHILS ABSOLUTE AUTO 0.14 K/mm3 (0.00-0.68); EOSINOPHILS PERCENT AUTO 2 % (0-6); Hematocrit 31.9 % (33.0-51.0); Hemoglobin 10.2 g/dL (11.5-16.0); IMMATURE GRAN ABSOLUTE AUTO 0.02 K/mm3 (0.00-0.10); IMMATURE GRAN PERCENT AUTO 0 % (0-1); LYMPHOCYTES ABSOLUTE AUTO 0.78 K/mm3 (0.84-5.20); LYMPHOCYTES PERCENT AUTO 10 % (21-46); MONOCYTES PERCENT AUTO 7 % (4-13); Mean Corpuscular HGB 32.7 pg (26.0-34.0); Mean Platelet Volume 9.8 fL (9.1-12.4); NEUTROPHILS ABSOLUTE AUTO 6.57 K/mm3 (1.96-9.15); NEUTROPHILS PERCENT AUTO 80 % (41-73); Platelet Count 318 K/mm3 (150-400); RDW Coefficient Variation 19.9 % (11.7-14.2); RDW Standard Deviation 70.4 fL (35.1-46.3); Red Blood Cell Count 3.12 M/mm3 (3.80-5.20)
[2019-12-02 05:02] LABS: Mean Corpuscular Volume 102 fL (80-100)
[2019-12-02 05:17] LABS: Albumin, Blood 2.8 g/dL (3.4-5.0); Bilirubin, Total 0.8 mg/dL (0.1-1.0); Bun/Creatinine Ratio 11.6 (12.0-20.0); Calcium, Blood 7.8 mg/dL (8.5-10.1); Creatinine, Blood 1.38 mg/dL (0.40-1.00); Globulin, Blood 2.8 g/dL (2.2-4.0); Magnesium, Blood 2.1 mg/dL (1.6-2.4); Phosphorus, Blood 2.5 mg/dL (2.5-4.9); Potassium, Blood 3.6 mmol/L (3.5-5.5); Total Protein, Blood 5.6 g/dL (6.4-8.2)
--- NOTE | 2019-12-02 05:35 | NUR ---
DR. ESTEVEZ NOTIFIED OF PT CONTINUED C/O ITCHINESS. ORDERS RECEIVED.
--- NOTE | 2019-12-02 07:43 | NUR ---
SHIFT SUMMARY PT RESTING COMFORTABLY, NO S/S ACUTE DISTRESS NOTED. SLEPT T/O NIGHT S ACUTE EVENTS. REPOSITIONED FOR COMFORT, SKIN KEPT CLEAN AND DRY. DENIES ANY NEEDS AT THIS TIME, CALL LIGHT AND POSSESSIONS IN REACH, BED IN LOWEST POSITION WITH BED ALARM ACTIVATED. REPORT GIVEN TO DAYSHIFT RN.
[2019-12-02 09:33] LABS: Albumin, Blood 3.1 g/dL (3.4-5.0)
--- NOTE | 2019-12-02 17:14 | NUR ---
ALERT. SOMETIMES CONFUSED. TURNED Q 2 HOURS, SOMETIMES MORE OFTEN. WOUND VAC W/GOOD SUCTION. RT LE DRESSING DRY, INTACT. UNLABORED RESPIRATIONS. SLEEPING MOST OF SHIFT. WCTM
--- NOTE | 2019-12-02 19:10 | NUR ---
ASSUMED CARE RECEIVED REPORT FROM DAY RN. ASSUMED CARE OF PT. RESTING COMFORTABLY, NO S/S ACUTE DISTRESS NOTED. DENIES ANY NEEDS AT THIS TIME. CALL LIGHT AND POSSESSIONS IN REACH, WILL CONTINUE TO MONITOR.
[2019-12-03 04:20] LABS: BASOPHILS ABSOLUTE AUTO 0.11 K/mm3 (0.00-0.23); BASOPHILS PERCENT AUTO 1 % (0-2); EOSINOPHILS ABSOLUTE AUTO 0.16 K/mm3 (0.00-0.68); EOSINOPHILS PERCENT AUTO 2 % (0-6); Hematocrit 30.9 % (33.0-51.0); Hemoglobin 10.2 g/dL (11.5-16.0); IMMATURE GRAN ABSOLUTE AUTO 0.03 K/mm3 (0.00-0.10); IMMATURE GRAN PERCENT AUTO 0 % (0-1); LYMPHOCYTES ABSOLUTE AUTO 0.88 K/mm3 (0.84-5.20); LYMPHOCYTES PERCENT AUTO 12 % (21-46); MONOCYTES ABSOLUTE AUTO 0.72 K/mm3 (0.16-1.47); MONOCYTES PERCENT AUTO 9 % (4-13); Mean Corpuscular HGB 32.8 pg (26.0-34.0); NEUTROPHILS ABSOLUTE AUTO 5.75 K/mm3 (1.96-9.15); NEUTROPHILS PERCENT AUTO 75 % (41-73); Platelet Count 329 K/mm3 (150-400); RDW Coefficient Variation 19.2 % (11.7-14.2); RDW Standard Deviation 65.9 fL (35.1-46.3); Red Blood Cell Count 3.11 M/mm3 (3.80-5.20); White Blood Cell Count 7.65 K/mm3 (4.00-11.30)
[2019-12-03 04:22] LABS: Mean Corpuscular Volume 99 fL (80-100)
[2019-12-03 04:45] LABS: Albumin, Blood 2.8 g/dL (3.4-5.0); Anion Gap 6 mmol/L (6-16); Blood Urea Nitrogen 17 mg/dL (8-24); Bun/Creatinine Ratio 12.5 (12.0-20.0); CO2, Blood 31 mmol/L (21-32); Calcium, Blood 8.1 mg/dL (8.5-10.1); Chloride, Blood 102 mmol/L (98-108); Creatinine, Blood 1.36 mg/dL (0.40-1.00); Glomerular Filtration Rate 41 (60-); Glucose, Blood 70 mg/dL (70-99); Magnesium, Blood 2.2 mg/dL (1.6-2.4); Phosphorus, Blood 2.4 mg/dL (2.5-4.9); Potassium, Blood 3.6 mmol/L (3.5-5.5); Sodium, Blood 139 mmol/L (136-145)
--- NOTE | 2019-12-03 06:46 | NUR ---
SHIFT SUMMARY PT RESTING COMFORTABLY, NO ACUTE EVENTS NOTED T/O SHIFT. MEDICATED X1 FOR HYPOTENSION, BPS STABLE AT THIS TIME, SBP HOLDING IN THE 90'S. DRSGS CHANGED TO WOUNDS, PT TOLERATED WELL. PLEASANT, COOPERATIVE WITH CARES, CALLS APPROPRIATELY. DENIES ANY NEEDS AT THIS TIME. CALL LIGHT, POSSESSIONS IN REACH, BED IN LOWEST POSITION WITH BED ALARM ACTIVATED. WILL CONTINUE TO MONITOR UNTIL DAY RN ASSUMES CARE.
--- NOTE | 2019-12-03 18:05 | NUR ---
PT AOX3 WITH CONFUSION TODAY. PT ANSWERS APPROPRAITELY TO SIMPLE QUESTION AND HAS BEEN COOPERATIVE OF CARE. PT HAD 4L REMOVED WITH A PARACENTESIS TODAY. PT TREAT X1 PER EMAR FOR LEG PAIN. PT HAS BEEN RESTING SINCE SHE ARRIVED BACK PT DID EAT SOME LUNCH AND IS NOW WORKING ON EATING DINNER. NO DISTRESS NOTED WILL CONTINUE TO MONITOR.
[2019-12-04 04:23] LABS: BASOPHILS ABSOLUTE AUTO 0.09 K/mm3 (0.00-0.23); BASOPHILS PERCENT AUTO 1 % (0-2); EOSINOPHILS ABSOLUTE AUTO 0.16 K/mm3 (0.00-0.68); EOSINOPHILS PERCENT AUTO 2 % (0-6); Hematocrit 29.9 % (33.0-51.0); Hemoglobin 9.7 g/dL (11.5-16.0); IMMATURE GRAN ABSOLUTE AUTO 0.02 K/mm3 (0.00-0.10); IMMATURE GRAN PERCENT AUTO 0 % (0-1); LYMPHOCYTES ABSOLUTE AUTO 0.78 K/mm3 (0.84-5.20); LYMPHOCYTES PERCENT AUTO 11 % (21-46); MONOCYTES ABSOLUTE AUTO 0.64 K/mm3 (0.16-1.47); MONOCYTES PERCENT AUTO 9 % (4-13); Mean Corpuscular HGB 32.6 pg (26.0-34.0); Mean Corpuscular HGB Conc 32.4 g/dL (31.5-36.5); Mean Corpuscular Volume 100 fL (80-100); Mean Platelet Volume 10.3 fL (9.1-12.4); NEUTROPHILS ABSOLUTE AUTO 5.49 K/mm3 (1.96-9.15); NEUTROPHILS PERCENT AUTO 76 % (41-73); Platelet Count 300 K/mm3 (150-400); RDW Coefficient Variation 18.9 % (11.7-14.2); RDW Standard Deviation 65.5 fL (35.1-46.3); Red Blood Cell Count 2.98 M/mm3 (3.80-5.20); White Blood Cell Count 7.18 K/mm3 (4.00-11.30)
[2019-12-04 04:47] LABS: Albumin, Blood 2.8 g/dL (3.4-5.0); Anion Gap 4 mmol/L (6-16); Blood Urea Nitrogen 18 mg/dL (8-24); Bun/Creatinine Ratio 14.3 (12.0-20.0); CO2, Blood 33 mmol/L (21-32); Calcium, Blood 8.1 mg/dL (8.5-10.1); Chloride, Blood 101 mmol/L (98-108); Creatinine, Blood 1.26 mg/dL (0.40-1.00); Glomerular Filtration Rate 45 (60-); Glucose, Blood 76 mg/dL (70-99); Magnesium, Blood 2.1 mg/dL (1.6-2.4); Phosphorus, Blood 2.2 mg/dL (2.5-4.9); Potassium, Blood 3.6 mmol/L (3.5-5.5); Sodium, Blood 138 mmol/L (136-145)
--- NOTE | 2019-12-04 04:58 | NUR ---
PRODUCT DISTRIBUTION SPECIALIST SUMMARY NO ACUTE CHANGES THIS SHIFT. AAOX3 WITH OCCASIONAL CONFUSION. PT ABLE TO MAKE NEEDS KNOWN AND USES CALL LIGHT APPROPRIATELY. WOUND VAC DRESSING INTACT AND MAINTAINING SUCTION. PT DENIES PAIN BUT DOES REPORT SOME OVERALL DISCOMFORT CAUSED BY THE BED. ASSISTED PT WITH REPOSITIONING FREQUENTLY. RENAL FUNCTION IMPROVING SLIGHTLY WITH AM LABS. BP STILL ON THE LOWER END WITH SBP HIGH 80'S, GIVEN MIDODRINE AT START OF SHIFT FOR DBP OF 49. OTHER VSS, WILL CONTINUE TO MONITOR.
--- NOTE | 2019-12-04 09:12 | NUR ---
BUMEX HELD PT BLOOD PRESSURE 87/56 THIS AM. ISTRATE CALLED & ASKED IF BUMEX AND ALDACTONE SHOULD BE GIVEN. ORDERED TO HOLD BUMEX AT THIS TIME. WILL CONTINUE TO MONITOR.
--- NOTE | 2019-12-04 17:14 | NUR ---
SHIFT SUMMARY PT WORKED WITH PT & OT THIS SHIFT. PT RELUCTANT TO SITTING WITH HOB ELEVATED, BUT AGREEABLE WITH ENCOURAGMENT. PT WOUND CARE COMPLETED. , PETER UPDATED. CLAYTON INTACT & DRAINING. DC PLANNING WORKING WITH PT. NO OTHER CHANGES IN ASSESSMENT AT THIS TIME. VSS. WILL CONTINUE TO MONITOR UNTIL TURNOVER IS COMPLETE.
[2019-12-05 05:00] LABS: BASOPHILS ABSOLUTE AUTO 0.12 K/mm3 (0.00-0.23); BASOPHILS PERCENT AUTO 2 % (0-2); EOSINOPHILS ABSOLUTE AUTO 0.22 K/mm3 (0.00-0.68); EOSINOPHILS PERCENT AUTO 3 % (0-6); Hematocrit 33.2 % (33.0-51.0); Hemoglobin 10.7 g/dL (11.5-16.0); IMMATURE GRAN ABSOLUTE AUTO 0.02 K/mm3 (0.00-0.10); IMMATURE GRAN PERCENT AUTO 0 % (0-1); LYMPHOCYTES ABSOLUTE AUTO 0.98 K/mm3 (0.84-5.20); LYMPHOCYTES PERCENT AUTO 14 % (21-46); MONOCYTES ABSOLUTE AUTO 0.63 K/mm3 (0.16-1.47); MONOCYTES PERCENT AUTO 9 % (4-13); Mean Corpuscular HGB 32.5 pg (26.0-34.0); Mean Corpuscular HGB Conc 32.2 g/dL (31.5-36.5); Mean Corpuscular Volume 101 fL (80-100); Mean Platelet Volume 9.9 fL (9.1-12.4); NEUTROPHILS ABSOLUTE AUTO 4.96 K/mm3 (1.96-9.15); NEUTROPHILS PERCENT AUTO 72 % (41-73); Platelet Count 301 K/mm3 (150-400); RDW Coefficient Variation 19.1 % (11.7-14.2); Red Blood Cell Count 3.29 M/mm3 (3.80-5.20); White Blood Cell Count 6.93 K/mm3 (4.00-11.30)
[2019-12-05 05:22] LABS: Albumin, Blood 2.8 g/dL (3.4-5.0); Anion Gap 6 mmol/L (6-16); Blood Urea Nitrogen 16 mg/dL (8-24); Bun/Creatinine Ratio 12.8 (12.0-20.0); CO2, Blood 32 mmol/L (21-32); Calcium, Blood 8.1 mg/dL (8.5-10.1); Chloride, Blood 99 mmol/L (98-108); Creatinine, Blood 1.25 mg/dL (0.40-1.00); Glomerular Filtration Rate 45 (60-); Glucose, Blood 75 mg/dL (70-99); Magnesium, Blood 2.3 mg/dL (1.6-2.4); Phosphorus, Blood 2.9 mg/dL (2.5-4.9); Sodium, Blood 137 mmol/L (136-145)
--- NOTE | 2019-12-05 06:45 | NUR ---
MACHINERY RIGGER SUMMARY NO ACUTE CHANGES THIS SHIFT. PT AAOX4 AND PLEASANT. REPOSITIONED FREQUENTLY ALLOWED BY PT. BP REMAINS LOW WITH SBP 80'S WHICH HAS BEEN NORMAL LATELY. PT HAS RESTED MOST OF THE SHIFT. VSS, WILL CONTINUE TO MONITOR.
--- NOTE | 2019-12-05 18:08 | NUR ---
SHIFT SUMMARY PT HAS BEEN SLEEPING A LOT OF THE SHIFT. PT DECLINES TO GET UP INTO CHAIR. THIS RN AND ELECTRONIC EQUIPMENT INSTALLER HAS ENCOURAGED PT TO GET UP. THIS RN EDUCATED PT ON IMPORTANCE OF GETTING OUT OF BED. PT HAS EDEMA THROUGH OUT BODY. BUTTOCKS VERY EXCORIATED FOR MULTIPLE BOWEL MOVEMENTS. THIS RN HAS ENCOUARGED PT TO CALL FOR BEDPAN INSTEAD OF GOING IN ATTENDS. WOUND VAC IN PLACE AND SUCTION WORKING WITHOUT DIFFICULTY. NO ACUTE CHANGES THIS SHIFT. PLANS FOR PT TO DISCHARGE TO SNF WHEN PT'S BLOOD PRESSURE STAYS WNL. WILL CONTINUE TO MONITOR AND REPORT TO ONCOMING RN. CALL LIGHT IN REACH.
[2019-12-06 04:53] LABS: BASOPHILS ABSOLUTE AUTO 0.14 K/mm3 (0.00-0.23); BASOPHILS PERCENT AUTO 2 % (0-2); EOSINOPHILS ABSOLUTE AUTO 0.18 K/mm3 (0.00-0.68); EOSINOPHILS PERCENT AUTO 3 % (0-6); Hemoglobin 11.9 g/dL (11.5-16.0); IMMATURE GRAN ABSOLUTE AUTO 0.02 K/mm3 (0.00-0.10); IMMATURE GRAN PERCENT AUTO 0 % (0-1); LYMPHOCYTES PERCENT AUTO 12 % (21-46); MONOCYTES ABSOLUTE AUTO 0.63 K/mm3 (0.16-1.47); MONOCYTES PERCENT AUTO 9 % (4-13); Mean Corpuscular HGB Conc 32.2 g/dL (31.5-36.5); Mean Corpuscular Volume 103 fL (80-100); Mean Platelet Volume 9.9 fL (9.1-12.4); NEUTROPHILS ABSOLUTE AUTO 5.47 K/mm3 (1.96-9.15); NEUTROPHILS PERCENT AUTO 74 % (41-73); Platelet Count 341 K/mm3 (150-400); RDW Coefficient Variation 19.1 % (11.7-14.2); Red Blood Cell Count 3.61 M/mm3 (3.80-5.20); White Blood Cell Count 7.34 K/mm3 (4.00-11.30)
[2019-12-06 05:16] LABS: Albumin, Blood 3.2 g/dL (3.4-5.0); Anion Gap 6 mmol/L (6-16); Blood Urea Nitrogen 17 mg/dL (8-24); Bun/Creatinine Ratio 12.6 (12.0-20.0); CO2, Blood 33 mmol/L (21-32); Calcium, Blood 8.5 mg/dL (8.5-10.1); Chloride, Blood 98 mmol/L (98-108); Creatinine, Blood 1.35 mg/dL (0.40-1.00); Glomerular Filtration Rate 41 (60-); Glucose, Blood 67 mg/dL (70-99); Magnesium, Blood 2.2 mg/dL (1.6-2.4); Potassium, Blood 3.8 mmol/L (3.5-5.5); Sodium, Blood 137 mmol/L (136-145)
--- NOTE | 2019-12-06 07:40 | NUR ---
SHIFT SUMMARY- NO ACUTE EVENTS OVERNIGHT. PT. SLEPT WELL, NO APPARENT DISTRESS NOTED. WOUND VAC IN PLACE. PT. REPOSITIONED Q2 AND FOR COMFORT. WILL CONT TO MONITOR.
--- NOTE | 2019-12-06 14:41 | NUR ---
PAL CARE COMFORT CARE INITIATION. PER DR, OT AND RN REQUEST, VISIT MADE TO PT TO DISCUSS HER EXPRESSED WISHES TO DISCONTINUE INTERVENTIONS/CARE AND TO BE ON COMFORT CARE AT THIS TIME. STAFF REPORT THAT PT IS DECLINING TO PARTICIPATE IN THERAPIES AND FREQUENTLY DECLINES MEDICATIONS/TXS ORDERED. MET WITH PT. SHE CONFIRMS HER DESIRE FOR NO MORE PARACENTESIS DESPITE RECURRENT ASCITES AND TO D/C TX OTHER THAN MEDICATIONS AND TX FOR HER COMFORT. SHE GAVE ME PERMISSION TO SPEAK WITH HER TO UPDATE HIM AND PASS ON HER WISHES. SHE STATES HER IS NOT ABLE TO CARE FOR HER AT HOME AND CONFIRMS THIS BECAUSE HE IS ALSO CARING FOR A 95 YEAR OLD GENTLEMAN IN THEIR HOME. THEY LIVE IN [place] AND WOULD LIKE PT TO BE PLACED IN [place] IF POSSIBLE. IS SAD BUT SUPPORTS HIS 'S DECISION AND REQUEST FOR HOSPICE CARE. SHE WOULD PREFER NOT TO GO TO REHAB OR EVEN [facility] FOR LTC/HOSPICE. THIS WAS ALL REPORTED TO DR AND CM WITH REQUEST FOR CONTACT WITH PT/ TODAY RE: DC PLANNING FOR HOSPICE IN AN ADULT FOSTER HOME OR LTC FACILITY. VO OBTAINED FOR COMFORT CARE AND ENTERED. I CONFIRMED WITH PT DESIRED CODE STATUS AND SHE STATES SHE WOULD NOT WANT TO BE RESUSCITATED OR RETURN TO THE HOSPITAL. HER AFFECT IS FLAT BUT SHE OPENS HER EYES TO DISCUSS THESE THINGS WITH ME. SHE DENIES PAIN AT THIS TIME AND DOES NOT APPEAR TO HAVE NONVERBAL INDICATORS OF PAIN, ANXIETY OR DISTRESS. SHE REQUESTED ICE CHIPS, WHICH I BROUGHT TO HER. MEDICATIONS AND TRANSFER TO PO,SL,MO ROUTES DISCUSSED WITH RN AND . WOUND CARE NEEDS DISCUSSED WITH RN. WOUND VAC D/C'D PER PT PREFERENCE. RN TO ASSESS AND DRESS WOUND APPROPRIATE ONCE ASSESSED. ALL ORDERS OBTAINED VERBALLY AND ENTERED PER
--- NOTE | 2019-12-06 16:00 | NUR ---
PT. SLEEPING BREATHING EVEN AND DEEP.
--- NOTE | 2019-12-06 19:21 | NUR ---
PT. SLEEPING AT THIS TIME. REMOVED WOUND VAC PER COMFORT CARE ORDERS.
--- NOTE | 2019-12-06 22:20 | NUR ---
COMFORT CARE PATIENT SLEEPING IN BED. NO S/SX OF DISTRESS OR PAIN. CALL LIGHT IN REACH.
--- NOTE | 2019-12-07 03:08 | NUR ---
SHIFT SUMMARY COMFORT CARE PATIENT HAD NO ACUTE CHANGES. AXOX 3 AND BEDFAST. ABLE TO SLEEP T/O SHIFT. DENIES PAIN, SOB, AND N/V. NO SIGN OF DISTRESS. CLAYTON PATENT AND DRAINING. CALL LIGHT IN REACH. BED IN LOWEST POSITION. WILL CONTINUE TO MONITOR UNTIL DAY SHIFT NURSE ASSUMES CARE.
--- NOTE | 2019-12-07 10:36 | NUR ---
PT RESTING COMFORTABLY.PT HAD BREAKFAST, NO COMPLAINTS.
--- NOTE | 2019-12-07 14:04 | NUR ---
PT REFUSED NYSTATIN POWER. WANTED TO SLEEP.
--- NOTE | 2019-12-07 16:59 | NUR ---
PT HAS REFUSED MOST OF THE CARES AND HAS ONLY ALLOWED STAFF TO TURN HER TWICE. SHE IS ALERT AND ORIENTED. CALL LIGHT WITHIN REACH.
--- NOTE | 2019-12-07 18:09 | NUR ---
Routine spiritual care note: Mrs. Bahena was sleepy and irritable. She complained of pain and I informed RN who responded immediately. She did not want conversation and declined prayer. I will remain available.
--- NOTE | 2019-12-08 04:35 | NUR ---
SHIFT SUMMARY: PT COMFORT CARE AND DENIED NEED FOR ANY PAIN MEDS ALL SHIFT; TURNED AND REPOSITIONED Q2H BY STAFF; BED ALARM APPLIED, BED LOW POSITION WITH CALL LIGHT AT SIDE.
--- NOTE | 2019-12-08 07:47 | NUR ---
PT ASKED TO HAVE PILLOW REMOVED FROM HER LEFT CALF. ICE CHIPS GIVEN. PT HAD NO OTHER REQUESTS.
--- NOTE | 2019-12-08 11:22 | NUR ---
[facility] CARE COMFORT CARE VISIT: Brief visit with pt. Room completely darkened with blinds closed. Pt opened eyes as soon as I entered. Assessment of s/s done. Pt's chief c/o is dry mouth. Ice chips given. Pt expressed appreciation. She denies pain or other distressing s/s. She prefers blinds closed tight. I tried to encourage her to let some indirect light in during the day. Pt plans d/c to another setting with Hospice care. CM working on d/c possibilites in community. and pt expressed wish for a [facility], [facility] or Residential care facility in [place] where lives. This was passed on to CM.
--- NOTE | 2019-12-08 13:27 | NUR ---
PT HAD BM, WAS CHANGED AND REPOSITIONED.
--- NOTE | 2019-12-08 18:36 | NUR ---
NO ACUTE CHANGES TO PT. RESTED IN BED .
--- NOTE | 2019-12-09 03:54 | NUR ---
SHIFT SUMMARY: 69 Y/O FEMALE ON COMFORT CARE MEASURES; DENIES PAIN OR NAUSEA; REPOSITIONED EVERY 2 HOURS BY STAFF; ALERT AND ORIENTED X 4; BED ALARM APPLIED, BED LOW POSITION WITH CALL LIGHT AT SIDE.
--- NOTE | 2019-12-09 18:27 | NUR ---
Shift Summary A/Ox3, c/o 04/08 pain and requested tylenol with poor results. This RN offered Roxanol for which patient was agreeable and helped with the generalized pain. Medicated x 2 for pain this shift. Patient does not like to be repositioned much, offered many times but patient declined. No other concerns or complaints. No other changes. Will continue to monitor.
--- NOTE | 2019-12-09 18:37 | NUR ---
Patient declined to be repositioned at this time. This RN encouraged patient to call for repositioning assistance and if patient is needing pain management.
--- NOTE | 2019-12-10 04:22 | NUR ---
SHIFT SUMMARY: COMFORT CARE. PT A/OX3. COMMUNICATES NEEDS. MED X 1 FOR PAIN SO FAR TONIGHT. HAS SLEPT SINCE. DRESSINGS C/D/I. TURNED Q 2 HOURS. PT REQUESTING ICE CHIPS. F/C PATENT AND DRAINING CLOUDY, DARK YELLOW URINE. HAS REMAINED IN BED. BED LOW, CALL BUTTON IN REACH. NO ACUTE CHANGES. WILL CONT TO MONITOR.
--- NOTE | 2019-12-10 08:42 | NUR ---
PERSONAL CARE PROVIDED CHANGED ATTENDS, REPOSITIONED, CATH CARE, WOUND CARE AND DRESSINGS CHANGED. MEDICATED FOR PAIN PER EMAR
--- NOTE | 2019-12-10 12:02 | NUR ---
REPOSITION PATIENT DECLINED TO BE REPOSITIONED AT THIS TIME. MEDICATED FOR PAIN PER EMAR.
--- NOTE | 2019-12-10 13:44 | NUR ---
REPOSITION PATIENT DECLINED TO BE REPOSITIONED. MEDICATED FOR PAIN PER EMAR
--- NOTE | 2019-12-10 14:26 | NUR ---
Comfort Care: Pt is resting in bed. Spoke with nursing. Pt is withdrawn at times, requires some coaxing for treatments. She did allow a bed bath today. Pt is oriented and taking some phone calls from family members. She will put the phone on silent if she needs to for comfort. Will remain available.
--- NOTE | 2019-12-10 15:47 | NUR ---
OFFERED AND MEDICATED FOR PAIN AND ANXIETY.
--- NOTE | 2019-12-10 17:26 | NUR ---
Shift Summary Patient has c/o more pain today compared with yesterday. Offered repositioning and medications throughout the day. No other changes or concerns. Will continue to monitor.
--- NOTE | 2019-12-10 21:55 | NUR ---
PT HAS REFUSED TO BE REPOSITIONED
--- NOTE | 2019-12-10 22:49 | NUR ---
PT HAS AGAIN REFUSED REPOSITIONING, NURSE NOTIFIED
--- NOTE | 2019-12-11 03:30 | NUR ---
PT HAS REFUSED TO BE REPOSITIONED
--- NOTE | 2019-12-11 03:49 | NUR ---
SHIFT SUMMARY: COMFORT CARE. PT REFUSING TURNS TONIGHT. STATES SHE WILL TELL US WHEN SHE WOULD LIKE TO TURN. HAS BEEN RESTING QUIETLY. DENIES NEEDING PAIN MEDS. STATES PAIN IS 2/10 WHICH SHE CAN TOLERATE WELL. F/C PATENT AND DRAINING CLOUDY YELLOW URINE. DRSG ON BUE, LLE, AND COCCYX C/D/I. BED LOW, CALL BUTTON PLACED WITHIN REACH. COMMUNICATING NEEDS. HAS REMAINED IN BED ALL NIGHT. NO ACUTE CHANGES. WILL CONT TO MONITOR.
--- NOTE | 2019-12-11 05:08 | NUR ---
PT HAS AGAIN REFUSED REPOSITIONING, ALSO REFUSED ATTENDS CHECK/CHANGE. PT DID AGREE TO HAVING CLAYTON EMPTIED (350ML).
--- NOTE | 2019-12-11 11:43 | NUR ---
PT REFUSING TURNS AT THIS TIME, VERBALIZES THAT SHE DOES NOT WANT CHECKED ON EVERY TWO HOURS, ESPECIALLY IF SHE IS COMFORTABLE, WILL CALL IF SHE NEEDS ANYTHING. PT DOES USE THE CALL CHUA APPROPRIATELY. WILL CONTINUE TO MONITOR PT ALLOWS
--- NOTE | 2019-12-11 16:55 | NUR ---
SHIFT SUMMARY MEDICATED MULTIPLE TIMES THIS EVENING FOR 8-10/10 PAIN IN BACK. OTHERWISE NO COMPLAINTS. SHE HAS REQUESTED TO BE LEFT ALONE FOR THE MOST PART AND SHE PREFERS NOT TO BE BOTHERED. SHE IS ABLE TO MOVE HERSELF ABOUT IN HER BED AND CHANGE POSITIONS INDEPENDENTLY.
--- NOTE | 2019-12-11 21:16 | NUR ---
PATIENT WOKE UP AND STATED THAT SHE WAS EXPERIENCING BACK PAIN RATED 8/10 PATIENT MEDICATED FOR PAIN PER EMAR. PATIENT IS ABLE TO REPOSITION SELF NEEDED.
--- NOTE | 2019-12-11 22:03 | NUR ---
PATIENT IS NOW SLEEPING COMFORTABLY IN HER BED UPON REASSESSING HER PAIN.
--- NOTE | 2019-12-12 05:39 | NUR ---
PATIENT REPOSITIONED AND ATTENDS CHANGED. MEDICATED FOR PAIN PER EMAR.
--- NOTE | 2019-12-12 06:33 | NUR ---
PATIENT STATES THAT THE PRN PAIN MEDICATION SHE WAS GIVEN WAS INEFFECTIVE. STATES THAT WHICHEVER WAY SHE TRIES TO MOVE SOMETHING HURTS.
--- NOTE | 2019-12-12 07:32 | NUR ---
SHIFT SUMMARY PATIENT ALERT AND ORIENTED OVERNIGHT. WAS RELUCTANT TO ASK FOR PAIN MEDICATION SHE STATED THAT SHE THOUGHT THE ROXANOL DID NOT DO ANYTHING EXCEPT TO HELP HER REST. PATIENT MEDICATED FOR PAIN PER EMAR. BED IN LOWEST POSITION WITH WHEELS LOCKED. CALL LIGHT WITHIN REACH. REPORT GIVEN TO ONCOMING RN.
--- NOTE | 2019-12-12 14:55 | NUR ---
PT SLEEPING AT THIS TIME
--- NOTE | 2019-12-12 17:40 | NUR ---
SHIFT SUMMARY PT ALERT AND ORIENTED, COOPERATIVE WITH CARE THIS SHIFT. PT REPORTED PAIN IN LOWER BACK THIS AM. PT MEDICATED PER EMAR WITH SIGNIFICANT IMPROVEMENT TO PAIN. PT DENIED NEEDING PAIN MEDICATION THROUGH THE REST OF THE SHIFT. PT MEDICATED FOR ITCHING 2X THIS SHIFT. PT SLEEPING SOUNDLY THIS AFTERNOON. PT COMFORT CARE AWAITING PLACEMENT.
--- NOTE | 2019-12-13 05:55 | NUR ---
BEEF PUSHER SUMMARY PT CONTINUES ON COMFORT CARE. AAOX2, CAN MAKE NEEDS KNOWN. MEDICATED FOR PAIN WITH 20 MG ROXANOL PER EMAR. ALSO USED BENADRYL OINTMENT FOR FREQUENT ITCHING OF PT'S BACK. WILL CONTINUE TO MONITOR UNTIL DAY SHIFT RN ASSUMES CARE.
--- NOTE | 2019-12-13 07:30 | NUR ---
AM NOTE PT SLEEPING SOUNDLY AT THIS TIME. NO SIGNS OF PAIN AT THIS TIME. WILL CONTINUE TO MONITOR FOR COMFORT. CALL LIGHT IN REACH.
--- NOTE | 2019-12-13 19:05 | NUR ---
SHIFT SUMMARY PT HAS BEEN SLEEPING ALOT OF THE SHIFT. MEDICATED FOR PAIN X1. PT HAS C/O ITCHING ALL OVER BODY. THIS RN PLACED BENADRYL CREAM PER EMAR. PT HAS NOT HAD MUCH OF AN APPETITE. NO ACUTE CHANGES. REPORT GIVEN TO JORGE SOMMER. CALL LIGHT IN REACH.
--- NOTE | 2019-12-14 05:01 | NUR ---
CARDIAC MONITOR SUMMARY PT REMAINS ON COMFORT CARE. MEDICATED WITH 20 MG ROXANOL AT HS FOR PAIN. REPOSITIONED ALLOWED BY PT. PT LIKES TO STAY ON HER LEFT SIDE MOSTLY DESPITE ENCOURAGEMENT BY STAFF TO SPEND TIME ON HER RIGHT SIDE ALSO. PT HAS OPEN AREA ON L HIP, MEPILEX PLACED TO PROTECT. WILL CONTINUE TO MONITOR.
--- NOTE | 2019-12-14 08:32 | NUR ---
AM NOTE PT AWAKE, CONFUSED. DENIES PAIN AT THIS TIME. PT APPEARS COMFORTABLE WITH NO GRIMACING OR MOANING AT THIS TIME. FLOATED PT'S HIPS. AM MEDICATION ADMINISTERED WITHOUT DIFFICULTY. ICE CHIPS GIVEN PER PT REQUEST. WILL CONTINUE TO MONITOR FOR COMFORT.
--- NOTE | 2019-12-14 14:02 | NUR ---
COMFORT CARE NOTE PT SITTING UP, EATING BITES OF LUNCH. THIS RN ADMINISTERED BENADRYL PO FOR PT'S CONSTANT ITCHING. PT HAS NO COMPLAINTS OF PAIN AT THIS TIME. NO GRIMACING OR MOANING NOTED. WILL CONTINUE TO MONITOR FOR COMFORT.
--- NOTE | 2019-12-14 18:19 | NUR ---
BED BATH PT RECEIVED BED BATH AND LINEN CHANGE. PT TOLERATED WELL. NO COMPLAINTS AT THIS TIME. DRESSINGS CHANGED TO LEFT LEG/LEFT HIP/COCCYX. PT APPEARS TO NOT BE SCRATCHING MUCH SINCE ORAL BENADRYL GIVEN EARLIER. WILL CONTINUE TO MONITOR FOR COMFORT.
--- NOTE | 2019-12-14 18:20 | NUR ---
SHIFT SUMMARY NO ACUTE CHANGES THIS SHIFT. PT EATING SMALL AMOUNTS AT TIMES. STILL DRINKING JUICE AND EATING ICE CHIPS. DRESSINGS CHANGED TO TO LEFT LEG/LEFT HIP AND COCCYX. PT RECEIVED ORAL BENADRYL THIS AFTERNOON AND APPEARS TO NOT BE ITCHING MUCH. NO COMPLAINTS OF PAIN THIS SHIFT. BED BATH GIVEN AND PT TOLERATED WELL. WILL CONTINUE TO MONITOR AND REPORT TO ONCOMING RN.
--- NOTE | 2019-12-14 20:21 | NUR ---
No changes pt resting will continue support.
--- NOTE | 2019-12-15 06:14 | NUR ---
SHIFT SUMMARY NO ACUTE CHANGES TO REPORT THIS SHIFT. PT HAS RESTED OFF AND ON THIS SHIFT, SHE IS A/OX2-3 BUT OCCASIONALLY FORGETFUL. EASILY REDIRECTABLE. SHE REPORTS PAIN IN HER BACK AND IS MEDICATED WITH ROXANOL PRN T/O THE SHIFT. PT HAS DECLINED TO BE REPOSITIONED MOST TIMES SHE IS ASKED. COMFORT HAS BEEN ASSESSED T/O SHIFT. DRESSING ON COCCYX CHANGED THIS SHIFT. ASSESSMENT UNCHANGED. BED IN LOWEST POSITION, CALL LIGHT WITHIN REACH. WILL CONTINUE TO MONITOR AND REPORT TO ONCOMING RN.
--- NOTE | 2019-12-15 15:44 | NUR ---
no issues or changes noted today will continue to monitor.
--- NOTE | 2019-12-15 17:17 | NUR ---
SHIFT SUMMARY PT REPOSITIONED WHEN ALLOWED BY PT. PT HAD 2 BMS THIS SHIFT. DRESSINGS ON WOUNDS INTACT. PT MEDICATED PER EMAR NEEDED. NO OTHER CHANGE IN COMFORT ASSESSMENT AT THIS TIME. WILL CONTINUE TO MONITOR UNTIL TURNOVER IS COMPLETE.
--- NOTE | 2019-12-16 04:20 | NUR ---
SUMMARY PT COMFORTABLE T/O SHIFT. PT CONTINUES TO HAVE ISSUE W/ ITCHING. PT HAS BEEN REPOSITIONED AND COMFORT MAINTAINED. PT CURRENTLY SLEEPING IN NO DISTRESS. CALL LIGHT IN REACH.
--- NOTE | 2019-12-16 13:35 | NUR ---
GAVE BED BATH TO PT AND REPOSITIONED. NO COMPLAINTS
--- NOTE | 2019-12-16 13:36 | NUR ---
SLEEPING, NO DISTRESS NOTED.
--- NOTE | 2019-12-16 15:32 | NUR ---
IN ROOM . PT AWAKE AND GETTING ICE CHIPS. NO DISTRESS NOTED. PATIENT 3-4 PITTING BILAT LOWER EXTREMITIES EDEMA.
--- NOTE | 2019-12-16 17:38 | NUR ---
CHANGED PTS BRIEF, SMALL SMEAR. REPOSITIONED IN BED.
--- NOTE | 2019-12-16 18:30 | NUR ---
NO ACUTE CHANGES. PT CONTINUES TO SLEEP MOST OF THE SHIFT. PERSONAL CARES DONE. AT BEDSIDE. PT HAS INCREASED PITTING EDEMA 3-4 BILAT LOWER EXTREMITIES. DRESSING TO HIP CHANGED THIS SHIFT. PT UNABLE TO TAKE PROBIOTIC THIS MORNING.
--- NOTE | 2019-12-16 18:41 | NUR ---
Comfort Care: Spoke to Madeleine nurse. She states that the pt's was able to come see her today. The pt's mentation has changed, she is now hallucinating. Her skin is itchy, she is having dependent edema and ascites. Request that benedryl and ativan be made available IV, as pt is no longer taking PO medications.
--- NOTE | 2019-12-16 22:28 | NUR ---
1929 COMFORT CARE APPEARS TO BE RESTING. NO ACUTE CHANGES AT THIS TIME. BED IN LOWEST POSITION. CALL LIGHT AND BELONGINGS WITHIN REACH.
--- NOTE | 2019-12-16 22:30 | NUR ---
2139 COMFORT CARE APPEARS TO BE UNCOMFORTABLE; STATES ITCHING, WILL CHECK MAR PERTAINING TO ISSUE. REPOSITIONED; STATED SATISFACTORY. DENTURES SOAKING. CLAYTON SECURED AND DRAINING. NO ACUTE CHANGES AT THIS TIME. BED IN LOWEST POSITION; ALARM ON. CALL LIGHT WITHIN REACH. WCTM.
--- NOTE | 2019-12-17 00:05 | NUR ---
7705 COMFORT CARE APPEARS TO BE RESTING. NO ACUTE CHANGES AT THIS TIME. BED IN LOWEST POSITION; ALARM ON. CALL LIGHT AND BELONGINGS WITHIN REACH. TM.
--- NOTE | 2019-12-17 00:26 | NUR ---
0026 COMFORT CARE APPEARS TO BE RESTING COMFORTABLY. NO ACUTE CHANGES AT THIS TIME. CLAYTON SECURED AND DRAINING TO GRAVITY. BED IN LOWEST POSITION; ALARM ON. CALL LIGHT AND BELONGINGS WITHIN REACH. TM.
--- NOTE | 2019-12-17 03:38 | NUR ---
0338 COMFORT CARE APPEARS TO BE RESTING. NO ACUTE CHANGES AT THIS TIME. BED IN LOWEST POSITION; ALARM ON. CALL LIGHT AND BELONGINGS WITHIN REACH. TM.
--- NOTE | 2019-12-17 03:38 | NUR ---
0338 COMFORT CARE APPEARS TO BE RESTING COMFORTABLY. NO ACUTE CHANGES AT THIS TIME. BED IN LOWEST POSITION; ALARM ON. CALL LIGHT AND BELONGINGS WITHIN REACH. TM.
--- NOTE | 2019-12-17 05:30 | NUR ---
0530 COMFORT CARE APPEARS UNCOMFORTABLE UPON ENTRY. STATES PAIN, LIKE ALWAYS; OFFERED PRN PAIN MEDICATION; AGREEABLE. MEDICATED PER EMAR. REPOSITIONED. BED IN LOWEST POSITION; ALARM ON. CALL LIGHT AND BELONGINGS WITHIN REACH. WCTM.
--- NOTE | 2019-12-17 06:37 | NUR ---
SHIFT SUMMARY A/O, ABLE TO MAKE NEEDS KNOWN; SOME CONFUSION NOTED AT TIMES WITH CALLING OUT POSSIBLY VISUAL HALLUCINATIONS. STATED PAIN; MEDICATED PER EMAR USING FLAAC SCALE. NO ACUTE CHANGES NOTED OVERNIGHT. REPOSITIONED; ROUTINE ATTENDS CHECKS. BED IN LOWEST POSITION; ALARM ON. CALL LIGHT AND BELONGINGS WITHIN REACH. WCTM. REPORT TO ONCOMING RN.
--- NOTE | 2019-12-17 07:35 | NUR ---
PT SLEEPING AT THIS TIME. NO DISTRESS NOTED.
--- NOTE | 2019-12-17 13:14 | NUR ---
ASSUMED CARE OF PATIENT. SHE DENIES NEEDS AT THIS TIME. CONTINUES TO REPORT SOME ITCHING AT TIMES. OFFERED PRN BENADRYL AT THIS TIME. NO OTHER COMPLAINTS. WOUND CARE COMPLETED BY LORETTA SOMMER
--- NOTE | 2019-12-17 18:22 | NUR ---
SHIFT SUMMARY PATIENT VERY CONFUSED. MUMBLING NONSENSICAL CONVERSATION. MEDICATED FOR PAIN AND ITCHING X1. PATIENT SLEEPING AT THIS TIME BUT HAS BEEN VERY RESTLESS UP UNTIL THIS POINT. COMFORT CARE.
--- NOTE | 2019-12-17 19:50 | NUR ---
1950 COMFORT CARE APPEARS TO BE RESTING. NO ACUTE CHANGES AT THIS TIME. BED IN LOWEST POSITION. CALL LIGHT AND BELONGINGS WITHIN REACH. [facility].
--- NOTE | 2019-12-17 20:50 | NUR ---
2049 COMFORT CARE NO ACUTE CHANGES AT THIS TIME; APPEARS TO BE RESTING COMFORTABLY. BED IN LOWEST POSITION. CALL LIGHT AND BELONGINGS WITHIN REACH. TM.
--- NOTE | 2019-12-17 22:50 | NUR ---
2250 COMFORT CARE APPEARS TO BE RESTING. NO NEEDS AT THIS TIME. BED IN LOWEST POSITION. CALL LIGHT AND BELONGINGS WITHIN REACH. [facility].
--- NOTE | 2019-12-17 23:37 | NUR ---
2394 COMFORT CARE APPEARED TO BE INTCHING AND VERY UNCOMFORTABLE; SUGGESTED PAIN MEDICATION TO SEE IF THAT COULD HELP WELL SOME REPOSITIONING. AGREEABLE. REPOSITIONED. DRESSING TO L HIP REMOVED; MUCH WORSE THAN LAST NIGHT, OOZING AND FRAGILE SKIN. WILL PLACE ABD PAD UNDER. MEDICATED PER EMAR. PLACED LOTION ALL OVER TO HELP WITH ITCHING. NO OTHER NEEDS AT THIS TIME. BED IN LOWEST POSITION. CALL LIGHT AND BELONGINGS WITHIN REACH. TM.
--- NOTE | 2019-12-18 00:42 | NUR ---
0042 COMFORT CARE APPEARS TO BE RESTING. NO ACUTE CHANGES NOTED. CLAYTON SECURED AND DRAINING TO GRAVITY. BED IN LOWEST POSITION. CALL LIGHT AND BELONGINGS WITHIN REACH. TM.
--- NOTE | 2019-12-18 03:04 | NUR ---
0240 COMFORT CARE APPEARS VERY ANXIOUS AND AGITATED; MEDICATED PER EMAR. REPOSITIONED; NEW LINENS/BREIF PLACED. EXUDRY TO L HIP SKIN TEAR. LOTION APPLIED. POWDER TO BACK. NO OTHER NEEDS AT THIS TIME. BED IN LOWEST POSITION. CALL LIGHT AND BELONGINGS WITHIN REACH. WCTM.
--- NOTE | 2019-12-18 04:40 | NUR ---
0440 COMFORT CARE APPEARS TO BE RESTING. NO AUCTE CHANGES NOTED. BED IN LOWEST POSITION. CALL LIGHT AND BELONGINGS WITHIN REACH. TM.
--- NOTE | 2019-12-18 07:13 | NUR ---
0640 COMFORT CARE APPEARS TO BE RESTING. NO ACUTE CHANGES NOTED. BED IN LOWEST POSITION. CALL LIGHT WITHIN REACH. [facility].
--- NOTE | 2019-12-18 07:14 | NUR ---
SHIFT SUMMARY ALERT, ANSWERS QUESTIONS TO THE BEST OF HER KNOWLEDGE. COOPERATIVE WITH CARE. CALLS APPROPRIATELY. PAIN NOTED; MEDICATED PER EMAR. NOTABLY AGITATED EARLY THIS AM; MEDICATED PER EMAR. CLAYTON SECURED AND DRAINING TO GRAVITY. REPOSITIONED TOLERATED. LOTION APPLIED TO ITCHY SKIN. NO OTHER ACUTE CHANGES NOTED OVERNIGHT. BED IN LOWEST POSITION. CALL LIGHT AND BELONGINGS WITHIN REACH. CONTINUED TO MONITOR OVERNIGHT. REPORT GIVEN TO ONCOMING RN.
--- NOTE | 2019-12-18 15:09 | NUR ---
PAL CARE COMFORT CARE VISIT: Visit to pt who was asleep in her bed with hob sl elevated. Stayed at bedside for a couple minutes. Pt did not wake to voice or gentle touch. I observed for nonverbal indicators of pain or distress and did not note any. Pt appears more frail and sallow in color since my last assessment approx 5 days ago. EMR and CM notes reviewed. Pal Care to continue to follow for comfort care/support.
--- NOTE | 2019-12-18 15:28 | NUR ---
Routine spiritual care note: Mrs. Bahena did not respond to voice or touch. She appears comfortable. Skin color change noted. Breaths even. I provided prayer for a peaceful transition at [facility]. I will remain available.
--- NOTE | 2019-12-18 15:49 | NUR ---
SHIFT SUMMARY PT CONTINUES ON COMFORT CARE. SHE HAS BEEN SLEEPING MOST OF THE DAY AND HAS NO C/O OR S/S OF PAIN OR DISCOMFORT. SHE IS RESTING COMFORTABLY. SHE HAS BEEN RE-POSITIONED FREQUENTLY. CLAYTON REMAINS PATENT.
--- NOTE | 2019-12-19 04:15 | NUR ---
SHIFT SUMMARY ADMITTED FOR SEPSIS -CELLULITIS IN LLE. DNR CODE. COMFORT CARE. CARDIAC DIET, 2 ASSIST, Q 2 TURNS, RA, CLAYTON PATENT AND DRAINING. FRAGILE SKIN COVERED IN ABRASIONS. EXPECTED TO DC TO A LTC FACILITY ON HOSPICE. HX: ASCITES, CELLULITIS, CKD3, AFIB, OSTEOPOROSIS, HEPATIC STEATOSIS, GASTRIC BYPASS, HYPOTHYROID. SHE DID NOT COMPLAIN OF PAIN THIS SHIFT, SHE APPEARED TO REST COMFORTABLY THROUGHOUT SHIFT.
--- NOTE | 2019-12-19 11:54 | NUR ---
COMFORT CAREA VISIT AND CASE CONFERENCE WITH RN BEDSIDE RN REVIEWED EMR AND SPOKE WITH RN RE: EVENTS OF PAST 24 HOURS. PT HAS HAD INCREASED COMFORT WITH PRIMARY C/O OF ITCHING SINCE LAST VISIT. SHE IS ASLEEP WHEN I WENT BY FOR VISIT AND I DID NOT WAKE HER. PAL CARE TO CONTINUE DAILY COMFORT CARE VISITS. I DID NOT OBSERVE ANY NONVERBAL INDICATORS OF DISCOMFORT OR DISTRESS WHILE PT SLEEPING. RESPIRATIONS EVEN AND UNLABORED.
--- NOTE | 2019-12-19 16:21 | NUR ---
SHIFT SUMMARY PT REMAINS ON COMFORT CARE AND WAS MEDICATED FOR FOR X 1 AND IT WAS EFFECTIVE. SHE HAS BEEN RESTING COMFORTABLY IN BED ALL DAY WITH NO COMPLAINTS. PALLIATIVE CARE CAME TO SEE HER THIS MORNING. PT HAS BEEN REPOSITIONED FREQUENTLY. CLAYTON IS PATENT AND SHE HAS BEEN INC OF STOOL. SHE IS RESTING IN BED.
--- NOTE | 2019-12-19 17:11 | NUR ---
Routine spiritual care note: Mrs. Bahena awakend easily to voice and appeared irritated. She appears frail, but lucid. She denied needs/concerns/prayer. I will remain available.
--- NOTE | 2019-12-19 20:58 | NUR ---
PT STATUS - COMFORT CARE PT REFUSING ORAL MEDS AND FOOD. PT HAS ALLOWED REPOSITIONING AND ATTENDS CHANGE THUS FAR THIS SHIFT. SHE DOES ALLOW LOTION TO BE APPLIED TO HER ITCHY SKIN.
--- NOTE | 2019-12-19 22:47 | NUR ---
PT STATUS - COMFORT CARE PROVIDED ICE CHIPS AT PT'S REQUEST, Q 2 TURNS, ATTENDS IS DRY. LOTION APPLIED TO ITCHY SKIN. PT MUTTERING, IS DIFFICULT TO UNDERSTAND - ALTHOUGH SOME REQUESTS ARE UNDERSTANDABLE. SHE IS STILL ALLOWING REPOSITIONING THIS SHIFT.
--- NOTE | 2019-12-20 04:21 | NUR ---
SHIFT SUMMARY ADMITTED FOR SEPSIS (CELLULITIS LLE). DNR CODE. NOW COMFORT CARE. SHE IS REFUSING FOOD AND ORAL MEDS. SHE DOES ACCEPT REPOSITIONING AND HER ITCHY SKIN RUBBED DOWN WITH LOTION. SHE DID NOT ACT PAINFUL OR AGITATED THIS SHIFT. HER SKIN IS FRAGILE AND MEPILEX'S ARE IN PLACE - VARIOUS SITES. ELBOW & HEEL PROTECTORS IN PLACE. NOTICEABLE ASCITES OF THE ABDOMEN. WE ARE TURNING HER Q2. CLAYTON IS IN PLACE AND PATENT. MAY PLAN TO GO HOME ON HOSPICE IF ARRANGEMENTS CAN BE SET UP. HX: CKD3, AFIB, OSTEOPOROSIS, HEPATIC STEATOSIS, HYPOTHYROID, GASTRIC BYPASS. SHE ACCEPTS ICE CHIPS.
--- NOTE | 2019-12-20 08:45 | NUR ---
PT PLEASANT EASILY OVERWHELMED WITH QUESTIONS. PT LYING ON BACK. ABS LARGE, ROUND, PT STATES NO PAIN AT THIS TIME. STATES WILL TAKE ACIDOPHILLUS, ALSO TUMS FOR INDIGESTION. DONE. PT STATES NO OTHER NEEDS. REQUESTED TEETH IN, ATTEMPTED, SHE THEN REFUSED, TOO MUCH AT THIS TIME. WILL FOLLOW.
--- NOTE | 2019-12-20 15:06 | NUR ---
Patient is lying in bed and appears irratated and agitated. I ask patient if I could play soothing guitar music for her. Patient enthusiastically states that she would appreciate guitar music. I provide therapeutic kinds of guitar finger picking style. Patient responds well and relaxes her face muscles and stops moving around and then falls asleep. I left the room to patient snoring.
--- NOTE | 2019-12-20 17:50 | NUR ---
pt continue t rest and then have periodas of discomfort she is frail but want to request mthe medications she wants. will dontinue to support her and monitor symptoms and give her some sense of control.
--- NOTE | 2019-12-20 18:23 | NUR ---
PT STATES ITCHY. DID GIVE BENEDRYL TODAY. REALLY SEEMED TO STOP SCRATCHING WELL. DENIES PAIN. HAS BEEN SUCKING ICE CHIPS REGULARLY. BECOMES OVERWHELMED WHEN ASK MORE THAN ONE THING AT A TIME. NO OTHER CONCERNS AT THIS TIME. BED IN LOW POSITION, CALL LITE IN REACH, CALLS APPROP
--- NOTE | 2019-12-20 20:58 | NUR ---
PT STATUS - COMFORT CARE PT DID ACCEPT ONE BENEDRYL CAPSULE, BUT SHE COULD NOT SWALLOW THE FLORASTOR CAPSULE SO I WASTED IT. SHE DID ACCEPT BENEDRYL CREAM AND SHE REQUESTED ICE CHIPS. SHE ATTEMPTED TO HELP WHEN WE REPOSITIONED HER. SHE APPEARS MORE ALERT TODAY TO ME.
--- NOTE | 2019-12-21 05:13 | NUR ---
SHIFT SUMMARY ADMITTED FOR CELLULITIS (LLE)/SEPTIC SHOCK. DNR CODE. NOW COMFORT CARE. NOTABLE ASCITES OF ABDOMEN. CLAYTON IN PLACE. SHE WAS ABLE TO TAKE ORAL BENEDRYL THIS SHIFT, BUT COULD NOT SWALLOW THE FLORASTOR. BENEDRYL CREAM APPLIED FOR ITCHY SKIN. SHE IS MORE ALERT THIS SHIFT. SPEECH IS SOMEWHAT GARBLED. SHE IS STILL ABLE TO MAKE MOST OF HER NEEDS KNOWN BUT SHE DOES NOT CALL OUT OR USE THE CALL BUTTON.
--- NOTE | 2019-12-21 08:55 | NUR ---
COMFORT CARE ASSESSMENT: NO C/O PAIN; MEDICATED FOR ITCHING PER EMAR. NO DYSPNEA/SOB/SECRETIONS. NO FAMILY PRESENT. WCTM.
[2019-12-21] MEDS ORDERED: ACET325 PO (13:45)
[2019-12-21] MEDS ORDERED: TUMS500 MG PO (13:46)
[2019-12-21] MEDS ORDERED: Ativan1 MG PO (13:48)
[2019-12-21] MEDS ORDERED: MELATONIN5 M1 PO (13:48)
[2019-12-21] MEDS ORDERED: MORP20L SL (13:49)
[2019-12-21] MEDS ORDERED: PROM12.5S PR (13:50)
--- NOTE | 2019-12-21 14:01 | NUR ---
COMFORT CARE ASSESSMENT: NO C/O PAIN. NO DYSPNEA/SOB/SECRETIONS. NO FAMILY PRESENT. WCTM.
--- NOTE | 2019-12-21 19:46 | NUR ---
COMFORT CARE ASSESSMENT: NO C/O PAIN/PT IN NO APPARENT DISTRESS. NO DYSPNEA/SOB/SECRETIONS. NO FAMILY PRESENT. WCTM.
--- NOTE | 2019-12-21 19:49 | NUR ---
COMFORT CARE ASSESSMENT; PT IN NO APPARENT DISTRESS/NO C/O PAIN. NO DYSPNEA/SOB/SECRETIONS. NO FAMILY PRESENT. WCTM.
--- NOTE | 2019-12-21 19:50 | NUR ---
COMFORT CARE ASSESSMENT; NO C/O PAIN/PT IN NO APPARENT DISTRESS. NO DYSPNEA/SOB/SECRETIONS. NO FAMILY PRESENT. WCTM.
--- NOTE | 2019-12-21 19:51 | NUR ---
SHIFT SUMMARY: COMFORT CARE MEASURES CONTINUING. NO PAIN/NAUSEA. PT EXPECTED TO D/C HOME WITH HOSPICE-DISCHARGE PLANNERS INVOLVED. REPORT GIVEN TO ONCOMING RN.
--- NOTE | 2019-12-21 20:13 | NUR ---
12/21/192009 PT SLEEPING WITHOUT DISTRESS.
--- NOTE | 2019-12-22 02:35 | NUR ---
12/22/19 0200 SLEEPING WITHOUT DISTRESS OR DISCOMFORT.
--- NOTE | 2019-12-22 07:12 | NUR ---
12/22/19 0600 SLEEPING WELL AFTER MEIDCATED FOR PAIN AT LEVEL"10". ORAL AND ACACIA-CARE GIVEN AND REPOSITIONED Q 2 HOURS FOR COMFORT.
--- NOTE | 2019-12-22 07:49 | NUR ---
COMFORT CARE ASSESSMENT: NO C/O PAIN. MEDICATED FOR ITCHING PER EMAR. NO DYSPNEA/SOB/SECRETIONS. NO FAMILY PRESENT. WCTM.
--- NOTE | 2019-12-22 10:12 | NUR ---
COMFORT CARE ASSESSMENT: PT IN NO APPARENT DISTRESS. NO DYSPNEA/SOB/SECRETIONS. NO FAMIL PRESENT. WCTM.
--- NOTE | 2019-12-22 13:04 | NUR ---
COMFORT CARE ASSESSMENT: PT IN NO OBVIOUS DISTRESS. NO DYSPNEA/SOB/SECRETIONS. NO FAMILY PRESENT. WCTM.
--- NOTE | 2019-12-22 14:07 | NUR ---
COMFORT CARE ASSESSMENT: PT IN NO APPARENT DISTRESS. NO DYSPNEA/SOB/SECRETIONS. NO FAMILY PRESENT. WCTM.
--- NOTE | 2019-12-22 15:31 | NUR ---
COMFORT CARE ASSESSMENT: NO C/O PAIN. MEDICATED FOR ITCHING PER EMAR. NO DYSPNEA/SOB/SECRETIONS. NO FAMILY IN ROOM. WCTM.
--- NOTE | 2019-12-22 18:12 | NUR ---
COMFORT CARE ASSSESSMENT: NO C/O PAIN. NO DYSPNEA/SOB/SECRETIONS. NO FAMILY PRESENT. WCTM.
--- NOTE | 2019-12-22 18:13 | NUR ---
COMFORT CARE ASSESSMENT: NO C/O PAIN. NO DYSPNEA/SOB/SECRETIONS. NO FAMILY PRESENT. WCTM.
--- NOTE | 2019-12-22 19:50 | NUR ---
SHIFT SUMMARY: NO ACUTE CHANGESD TO REPORT THIS SHIFT. COMFORT CARE MEASURES IN EFFECT. NO C/O PAIN THIS SHIFT. NO DYSPNEA/SOB/SECRETIONS THIS SHIFT. MEDICATED FOR ITCHING (PO & TOP) THIS SHIFT. POOR ORAL INTAKE. AWAITING PLACEMENT. REPORT GIVEN TO ONCOMING RN.
--- NOTE | 2019-12-23 02:03 | NUR ---
MEPILEX TO COCCYX AND R UPPER LEG CHANGED AT THIS TIME.
--- NOTE | 2019-12-23 04:42 | NUR ---
SHIFT SUMMARY PT SEEMS TO BE A/O BUT IS DIFFICULT TO UNDERSTAND AT TIMES. PT HAS BEEN REPOSITIONED SEVERAL TIMES BUT HAS REFUSED Q2 REPOSITIONING. MEPILEX TO COCCYX AND L UPPER LEG REPLACED THIS SHIFT. PT HAD BM DURING THE NIGHT. CLAYTON PATENT, STAT LOCK IN PLACE. NO C/O PAIN DURING THE NIGHT. NO ACUTE CHANGES; ASSISTED WITH ADL'S PRN.
--- NOTE | 2019-12-23 10:33 | NUR ---
PT PLEASANT THIS AM. SPOKE TO HER SOME AT SHIFT CHANGE. DENIES PAIN. SHE IS EASILLY OVERWHELMED WITH MORE THAN ONE THOUGHT AT A TIME. RESP ARE EASY UNLABORED. ON R.A. SOME ITCHINESS REMAINS SINCE BENADRYL ADMIN THIS AM. WILL FOLLOW. ABD FIRM ROUND. NO OTHER CONCERNS AT THIS TIME. WILL ADDRESS DRESSINGS WHEN CHANGE. BED IN LOW POSITION, CALL LITE IN REACH, CALLS APPROP, BED ALARM ON FOR SAFETY.
--- NOTE | 2019-12-23 10:56 | NUR ---
Pt resting in bed upon arrival. Pt reports 5/10 generalized pain. Mild anxiety noted. Pt requests medication for pain. Pt reports no other concerns reported at this time. Spoke with Caremanshyla Martínez prior to visit and discussed case. 's medicare discharge appeal was denied. has appealed this decision today. Reported Pt's pain to bedside KEMAL Sanches. Palliative Care will remain available
--- NOTE | 2019-12-23 15:17 | NUR ---
PT PETER IN ROOM. VISITING.
--- NOTE | 2019-12-23 16:46 | NUR ---
PT PLEASANT TODAY. CONTINUES TO BE OVERWHELMED IF MORE THAN ONE QUESTION PER VISIT. IN TO VISIT TODAY. PAIN MANAGED WITH AVAIL MEDS. GAVE BENADRYL BECAME ITCHY. NO OTHER CONCERNS AT THIS TIME. BED IN LOW POSITION, CALL LITE IN REACH, CALLS APPROP. BED ALARM ON FOR SAFETY
--- NOTE | 2019-12-24 04:58 | NUR ---
SHIFT SUMMARY PT HAS DENIED PAIN THIS SHIFT WHEN ASKED. SHE HAS SLEPT MOST OF THE NIGHT. PT ANSWERS SOME QUESTIONS APPROPRIATLY, BUT GETS EASILY AGITATED AND OVERWHELMED IF YOU ASK MULTIPLE QUESTIONS IN A SMALL PERIOD OF TIME. PT A/OX 1-2. COMFORT HAS BEEN ASSESSED T/O SHIFT. CLAYTON IN PLACE PATENT AND DRAINING. BED IN LOWEST POSITION, CALL LIGHT WITHIN REACH. WILL CONTINUE TO MONITOR AND REPORT TO ONCOMING RN.
--- NOTE | 2019-12-24 09:00 | NUR ---
PT PLEASANT COOP ALERT TO SELF AND FAM. STATES FEELS OKAY, SAME YEST. DENIES PAIN. ABD LARGE FIRM. PT STATES UNCOMFORTABLE. OFFERED TUMS, REFUSED AT THIS TIME. ACCEPTED ICE. BED IN LOW POSITION, CALL LITE IN REACH, BED ALARM ON FOR SAFETY
--- NOTE | 2019-12-24 10:48 | NUR ---
MARCIE MALDONADO FROM [facility] CALLED [phone]. RE PLACEMENT ON PT. FAMILY CALLING HER ABOUT BEING DISCHARGED, THEIR CONCERNS ARE CANT TAKE CARE OF AT HOME. CARE UTILIZATION STOPPED BY AND TOLD ME PT MEDICARE APPEAL REFUSED. PT RESPONSIBLE FOR BILLS FROM SAT NOON. ADVISED MS MALDONADO PT WILL NOT BE JSUT SENT OUT TODAY. SHE TRYING TO SEE IF CAN BE READMITTED. EXPLAINED THAT IS CARE MANAGEMENT ISSUE. SHE TO CALL FAMILY AND ADVISE. DISCUSSED WITH CHIEF ENGINEER [employer], POLLY.
--- NOTE | 2019-12-24 12:39 | NUR ---
Pt resting in bed with her eyes closed. She appears comfortable with no S/S of distress at this time. This RN did not disturb Pt at this time. Palliative Care will remain available.
--- NOTE | 2019-12-24 14:15 | NUR ---
REPOSITIONED PT. GAVE TUMS AND BENADRYL. DENIES PAIN. CHECKED ATTENDS AND BACKSIDE. SHE IS C&D. NO DRAINAGE ON WOUNDS NOTED. SAT AND TALKED WITH HER FOR A MIN. DID GET WARM BLANKET FOR LEGS/FEET. BED IN LOW POSITION, CALL LITE IN REACH, BED ALARMON FOR SAFETY
--- NOTE | 2019-12-24 15:55 | NUR ---
REPORT RECEIVED FROM KEMAL JEROME. THIS NURSE TO ASSUME CARE OF PT. PT LYING IN BED APPEARS TO BE RESTING COMFORTABLY AT THIS TIME.
--- NOTE | 2019-12-24 16:05 | NUR ---
PT PLEASANT TODAY, HAS DENIED PAIN EVERY TIME IN ROOM. DID REPOSITION AND GIVE WARM BLANKET FOR FEET. SHE STATES APPRECIATIVE. BENADRYL GIVEN THIS AFT. NO BM TODAY YET. SIPS GRAPE JUICE, ENSURE, AND ICE CHIPS. NO OTHER CONCERNS AT THIS TIME. BED IN LOW POSITION, CALL LITE IN REACH, BED ALARM ON FOR SAFETY
--- NOTE | 2019-12-24 21:55 | NUR ---
WAS RESTING QUIETLY. AWAKENED AND ASKED FOR SIP OF WATER FOR "DRY MOUTH".
--- NOTE | 2019-12-25 00:35 | NUR ---
RESTING QUIETLY. CALL LIGHT IN REACH
--- NOTE | 2019-12-25 03:17 | NUR ---
RECEIVED ANALGESIC FOR DISCOMFORT. SEE OCT. RESTING QUIETLY NOW
--- NOTE | 2019-12-25 15:06 | NUR ---
PATIENT HAS BEEN COMFORTABLY LAYING IN BED TODAY. REFUSES TO EAT WHEN OFFERED. TURNED Q2HRS. DARK YELLOW URINE DRAINING TO GRAVITY IN CLAYTON. DENIES PAIN AND DISCOMFORT. NO ACUTE CHANGES TO REPORT AT THIS TIME.
--- NOTE | 2019-12-25 20:58 | NUR ---
RESTING QUIETLY, NO NOTED ACUTE DISTRESS. CALL LIGHT IN REACH
--- NOTE | 2019-12-25 22:18 | NUR ---
ASSISTED WITH REPOSITIONING EARLIER, VOICED WOULD LIKE ANALGESIC, MED ADMINISTERED, SEE MAR FOR DETAILS. CURRENTLY RESTING QUIETLY. CALL LIGHT IN REACH.
--- NOTE | 2019-12-26 00:40 | NUR ---
RECEIVED ANALGESIC AROUND 2107. HAS BEEN SLEPING QUIETLY SINCE THEN WHEN DOING ROUNDING. CALL LIGHT IN REACH
--- NOTE | 2019-12-26 00:41 | NUR ---
RESTING QUIETLY. CALL LIGHT IN REACH
--- NOTE | 2019-12-26 05:27 | NUR ---
SHIFT SUMMARY PT REMAINS ON COMFORT CARE. HAS BEEN RESTING QUIETLY WITH FEW INTERRUPTIONS, AWAKENED AROUND 2100 LAST NIGHT AND VOICED DISCOMFORT. RECEIVED PAIN MED. SIPPED SOME H2O AND THEN WENT BACK TO SLEEP. HAS BEEN RESTING QUIETLY WITH FEW INTERRUPTIONS SINCE THEN. MATILDE ROGER. CALL LIGHT IN REACH. WILL CONTINUE TO MONITOR
--- NOTE | 2019-12-26 18:36 | NUR ---
SHIFT SUMMARY PT ITCHING ON AND OFF THROUGH DAY. BENEDRYL CAPSULE AND CREAM HAS BEEN APPLIED WITH LITTLE DIFFERENCE. SKELETAL BESIDES ASCITES AND 3+ EDEMA TO BLES TO HIPS. NOT EATING BUT TAKING ONLY SMALL SIPS OF FLUIDS. REPOSITIONED FOR COMFORT.
--- NOTE | 2019-12-26 22:56 | NUR ---
ANALGESIC ADMIN, REPOSITIONED, SOME EMESIS. CALL LIGHT IN REACH
--- NOTE | 2019-12-27 03:00 | NUR ---
RESTING QUIETLY AT INTERVALS. CALL LIGHT IN REACH
--- NOTE | 2019-12-27 03:01 | NUR ---
RESTING QUIETLY. WAS CHANGED EARLIER. CALL LIGHT IN REACH
--- NOTE | 2019-12-27 05:20 | NUR ---
SHIFT SUMMARY PT HAS BEEN RESTING QUIETLY WITH A FEW INTERRUPTIONS THIS SHIFT. ONE INCLUDED PAIN, RECEIVED ANALGESIC ORDERED, SOON AFTERWARDS PT HAD EMESIS, EMESIS COLOR WAS GREEN. PT WAS CHANGED, CLEANED UP AND HAS BEEN RESTING QUIETLY WITH FEW INTERRUPTIONS SINCE. CALL LIGHT IN REACH. COMFORT MEASURES MAINTAINED.
--- NOTE | 2019-12-27 07:53 | NUR ---
PATIENT SLEEPING AT THIS TIME. NO S/S OF PAIN OR DISCOMFORT.
--- NOTE | 2019-12-27 10:11 | NUR ---
PATIENT REPORTING GENERALIZED PAIN. UNABLE TO RATE PAIN. WILL MEDICATE PER EMAR. REPOSITIONING Q2 HOURS.
--- NOTE | 2019-12-27 13:28 | NUR ---
PATIENT SLEEPING AT THIS TIME. PATIENT RESPOSITIONED ONTO BACK. WAS AT BEDSIDE BRIEFLY. PATIENT COMFORTABLE AT THIS TIME.
--- NOTE | 2019-12-27 15:14 | NUR ---
ORAL CARE COMPLETED. PATIENT REPOSITIONED TO R SIDE. MEDICATED PER EMAR.
--- NOTE | 2019-12-27 16:29 | NUR ---
PATIENT SLEEPING AT THIS TIME. NO S/S OF PAIN OR DISCOMFORT. BED ALARM SET FOR SAFETY.
--- NOTE | 2019-12-27 17:38 | NUR ---
ATTENDS CHANGED AND PATIENT REPOSITIONED. PAIN WELL CONTROLLED WITH 10MG ROXINOL Q4 HOURS. ITCHING SEEMS TO HAVE IMPROVED THROUGGOUT THE DAY. DRESSINGS REMAIN INTACT TO BLE AND COCCYX. NO IV SITE. CLAYTON TO GRAVITY WITH MINIMAL OUTPUT. PATIENT REFUSING PO INTAKE THIS SHIFT.
--- NOTE | 2019-12-27 18:17 | NUR ---
COMFORT CARE VISIT AND CASE CONFERENCE WITH RN. PT SOUND ASLEEP EACH TIME I WENT BY TODAY. RN STATES INTENSE ITCHING HAS BEEN PT'S PRIMARY COMPLAINT AND SHE WAS MEDICATED FOR DEEP SCRATCHING, ITCHING EARLIER PER eMAR WITH GOOD RESULTS. RECOMMENDED USING BENEDRYL AT NIGHT INSTEAD OF ROXANOL FOR ITCHING TO SEE IF THAT IMPROVED INTENSE ITCHING AND PREVENTED NAUSEA/EMESIS EXPERIENCED LAST NIGHT.
--- NOTE | 2019-12-28 04:43 | NUR ---
SHIFT SUMMARY PT APPEARED COMFORTABLE THROUGH MOST OF THE NIGHT THIS EVENING. PT DID COMPLAIN OF FEELING ITCHY "ALL OVER". BENADRYL CREAM APPLIED. SOME FACIAL GRIMACING AND RESTLESSNESS AT TIMES. MEDICATED W/ 10 MG ROXANOL THOUGHOUT THE NIGHT WHICH WORKED QUITE WELL TO RELAX AND COMFORT THE PT. CLAYTON CATHETER PATENT AND DRAINING. VERY LOW OUTPUT. URINE THICK AND MUCUSY LOOKING. MEPILEX TO SCATTERED WOUNDS REMAINED IN PLACE. OTHERWISE, NO ACUTE CHANGES. WILL CONTINUE TO MONITOR AND REPORT TO DAY RN.
--- NOTE | 2019-12-28 07:44 | NUR ---
PATIENT SLEEPING AT THIS TIME. NO S/S OF PAIN OR DISTRESS NOTED.
--- NOTE | 2019-12-28 10:32 | NUR ---
PATIENT GIVEN ROXINOL FOR PAIN. CATH CARE COMPLETED AND PATIENT REPOSITIONED TO L SIDE.
--- NOTE | 2019-12-28 11:55 | NUR ---
GAVE PATIENT SOME ICE CHIPS. REPOSITIONED TO R SIDE. PATIENT DENIES ANY NEEDS AT THIS TIME.
--- NOTE | 2019-12-28 18:19 | NUR ---
REPOSITIONED PATIENT TO L SIDE, PATIENT DENIES ANY NEEDS AT THIS TIME.
--- NOTE | 2019-12-28 18:20 | NUR ---
PATIENT DENIES ANY NEEDS AT THIS TIME. ATTENDS DRY, DENIES ANY PAIN OR NEEDS AT THIS TIME. REPOSITIONED TO R SIDE
--- NOTE | 2019-12-28 18:26 | NUR ---
PATIENT STILL WAKES TO VOICE, BUT SLEPT MOST OF THE DAY. ONLY TOOK IN A FEW ICE CHIPS ALL DAY. ALMOST NO U/O TODAY. PATIENT VERY COMFORTABLE WITH ROXINOL Q4 HOURS. ITCHING IMPROVED TODAY. REPOSITIONING Q2 HOURS.
--- NOTE | 2019-12-29 06:10 | NUR ---
SHIFT SUMMARY NO ACUTE CHANGES THIS SHIFT. PT COMFORTABLE THROUGH MOST OF THE SHIFT. DID REQUIRE 10 MG ROXANOL X 2 THIS EVENING. PT RESTLESS AND ITCHY AT TIMES. BOTH OF WHICH ROXANOL APPEARS AFFECTIVE FOR. ABD DISTENDED. MEPILEX DRESSINGS TO WOUNDS SCATTERED THROUGHOUT BODY. WOUNDS ARE MALODOROUS BUT DRESSINGS REMAINED INTACT. ATTENDS IN PLACE. NO BM THIS EVENING. CLAYTON CATHETER PATENT AND DRAINING. VERY LOW, ALMOST NO, OUTPUT. URINE IS THICK AND MUCUSY. PT RESTING COMFORTABLY AT THIS TIME. WILL CONTINUE TO MONITOR AND REPORT TO DAY RN.
--- NOTE | 2019-12-29 09:00 | NUR ---
PT PLEASANT SCRATCHING SOME. OFFERED BENADRYL. SHE STATES DECIDE SHORTLY. APPEARS ABLE TO ONLY HANDLE ONE ITEM AT A TIME. BECOMES FRUSTRATED EASILY. DENIES PAIN. SEEMS LESS AWARE AND COMMUNICATIVE THAN LAST WEEK WHEN I CARED FOR HER. NO OTHER CONCERNS AT THIS TIME. BED IN LOW POSITION, CALL LITE IN REACH, BED ALARM ON FOR SAFETY
--- NOTE | 2019-12-29 11:36 | NUR ---
PT STRUGGLING WITH PILLS SOME, SPOKE TO DR SYKES, OKAY CHANGE PO BENADRYL TO LIQUID. ALSO IS OKAY PULL [facility] CATH IF PT CHOOSES. ON C/C.
--- NOTE | 2019-12-29 14:11 | NUR ---
GAVE PT BENADRYL. HAD HARD TIME WITH PILL. CALLED GEOVANNY YBARRA SWITCH TO LIQUID.
--- NOTE | 2019-12-29 16:43 | NUR ---
CHANGED MEPILEX ON LEFT HIP. SOME DRAINAGE S/S ON PAD, VERY FOUL SMELL. SPRAYED AND REPLACED WITH MEPILEX. PT RETURNED TO BACK. TWISTED OUT OF BEING ON RT SIDE PLACED. BED IN LOW POSITION, CALL LITE IN REACH, BED ALARM ON FOR SAFETY
--- NOTE | 2019-12-29 17:23 | NUR ---
PT LESS RESPONSIVE TODAY THAN LAST WEEK. SLOW TO RESPOND. BECOMES FRUSTRATED EASILY. CHANGED PILL BENADRYL TO LIQUID. PT AGUSTINA BETTER. WOUND DRESSING CHANGED TODAY. PT STILL TAKING SOME ICE. NOT MUCH ELSE. BED IN LOW POSITION, CALL LITE IN REACH. BED ALARM ON FOR SAFETY
--- NOTE | 2019-12-29 18:28 | NUR ---
PT REFUSED TAKING C[facility]TON CATH.
--- NOTE | 2019-12-29 21:39 | NUR ---
PATIENT MOVING HERSELF FREELY IN HER BED. WHEN ASKED IF SHE WAS IN PAIN SHE STATED "A LITTLE BIT". WHEN TYLENOL WAS OFFERED TO HELP ALLEVIATE HER PAIN THE PATIENT DID NOT ANSWER. SHE IS HAVING SLOW, SHALLOW RESPIRATIONS WITH NO DYSPNEA.
--- NOTE | 2019-12-30 00:58 | NUR ---
PATIENT SLEEPING COMFORTABLY
--- NOTE | 2019-12-30 04:31 | NUR ---
PATIENT'S ATTENDS CHANGED, CATH CARE COMPLETED, BED CHANGE DONE, PATIENT REPOSITIONED. CHANGED DRESSING ON PATIENT'S LEFT HIP.
--- NOTE | 2019-12-30 06:31 | NUR ---
SHIFT SUMMARY PATIENT SLEPT MOST OF THE NIGHT. WAS ABLE TO REPOSITION SELF. PATIENT REFUSED TO TAKE PAIN MEDICATIONS WHEN OFFERED AND SHE APPEARD TO BE UNCOMFORTABLE AND IN PAIN. BED IN LOWEST POSITION WITH WHEELS LOCKED. CALL LIGHT WITHIN REACH. REPORT GIVEN TO ONCOMING RN.
--- NOTE | 2019-12-30 10:46 | NUR ---
BENARDYL GIVEN FOR ITCHING.
--- NOTE | 2019-12-30 16:42 | NUR ---
SHIFT SUMMARY PT REPOSITIONED NEEDED & WHEN AWAKE THROUGHOUT SHIFT. PT MEDICATED WITH BENADRYL ONCE FOR ITCHYNESS. PT REFUSING MEALS. NO OTHER CHANGES IN COMFORT CARE ASSESSMENT AT THIS TIME. WILL CONTINUE TO MONITOR UNTIL TURNOVER IS COMPLETE.
--- NOTE | 2019-12-30 20:15 | NUR ---
PATIENT SLEEPING COMFORTABLY. ABLE TO REPOSITION SELF NEEDED.
--- NOTE | 2019-12-31 00:32 | NUR ---
PATIENT SLEEPING COMFORTABLY
--- NOTE | 2019-12-31 04:39 | NUR ---
PATIENT'S ATTENDS CHANGED, PERICARE/CATH CARE COMPLETED, PATIENT REPOSITIONED, DRESSINGS CHANGED TO PATIENT'S HEELS AND LEFT HIP. OTHER DRESSINGS C/D/I. PATIENT HAD NO COMPLAINTS OF PAIN.
--- NOTE | 2019-12-31 06:23 | NUR ---
SHIFT SUMMARY PATIENT SLEPT SOUNDLY AND COMFORTABLY MOST OF THE SHIFT. PATIENT HAD NO COMPLAINTS OF PAIN. MEPILEX DRESSINGS REPLACED ON HEELS AND LEFT HIP. BED IN LOWEST POSITION WITH WHEELS LOCKED. CALL LIGHT WITHIN REACH. REPORT GIVEN TO ONCOMING RN.
--- NOTE | 2019-12-31 07:23 | NUR ---
ASSUMED PATIENT CARE. PATIENT SLEEPING COMFORTABLY IN BED, NO SIGN SOF ACUTE DISTRESS. WCTM.
--- NOTE | 2019-12-31 17:27 | NUR ---
NO ACUTE EVENTS THIS SHIFT. PATIENT WAS UNABLE TO ENGAGE VERBALLY WITH NURSING STAFF THIS SHIFT. COMFORT CARE MEASURES CONTINUED. BENADRYL GIVEN TO MANAGE ITCHING. DECREASE IN THEN ITCHING NOTED. PATIENT HAD WHAT APPEARED TO BE A CONTINUATION OF AN OLD SKIN TEAR ON LUE START BLEEDING, NEW MEPILEX APPLIED. PLAN IS TO DISCHARGE TO HOSPICE.
--- NOTE | 2019-12-31 20:26 | NUR ---
PATIENT SLEEPING COMFORTABLY IN HER BED. SHE DOES NOT APPEAR TO BE IN PAIN. BREATHING SLOW AND SHALLOW. MOVING QUIETLY.
--- NOTE | 2020-01-01 02:31 | NUR ---
PATIENT SLEEPING COMFORTABLY.
--- NOTE | 2020-01-01 07:38 | NUR ---
SHIFT SUMMARY PATIENT HAD NO COMPLAINTS OF PAIN OVERNIGHT AND SLEPT THE WHOLE TIME. SHE WAS NOT ALERT AND DID NOT SPEAK TO CARE STAFF WHO WENT IN TO REPOSITION HER. NO URINE OUTPUT NOTICED FROM [facility] BUT PATIENT HAD NO ORAL INTAKE. BED IN LOWEST POSITION WITH WHEELS LOCKED. CALL LIGHT WITHIN REACH. REPORT GIVEN TO ONCOMING RN.
--- NOTE | 2020-01-01 10:22 | NUR ---
PT GIVEN MORPHINE FOR PAIN, WOUND DRESSINGS CHANGED, PT WAS GIVEN A BED BATH LINENS CHANGED, PT REPOSITONED CALL LIGHT IN REACH
--- NOTE | 2020-01-01 10:23 | NUR ---
PT APPEARS COMFORTABLE AT THIS TIME
--- NOTE | 2020-01-01 11:11 | NUR ---
PT APPEARS TO BE COMFORTABLE AT THIS TIME, THE PT WAS FLOATED UNDER BOTH HIPS ON PILLOWS
--- NOTE | 2020-01-01 14:22 | NUR ---
Pt resting in bed with her eyes closed. Pt briefly responds to gentle voice with opening her eyes, says what then drifts back to sleep. Pt appears comfortable with no S/S of distress at this time. Palliative Care will remain available.
--- NOTE | 2020-01-01 17:04 | NUR ---
BENADRYL GIVEN FOR ITCHING, THE PT TOOK IN ONLY A COUPLE OF SMALL BITES OF GELITIN THEN PUSHED THE FOOD AWAY,CALL LIGHT IN REACH WILL CONTINUE TO MONITOR FOR CHANGES
--- NOTE | 2020-01-01 17:06 | NUR ---
PT REPOSITONE OFF THE LEFT SIDE, MORPHINE GIVEN FOR PAIN,WILL CONTINUE TO MONITOR AND ASSESS FOR CHANGES
--- NOTE | 2020-01-01 17:07 | NUR ---
PT APPEARS COMFORTABLE AT THIS TIME
--- NOTE | 2020-01-01 17:55 | NUR ---
PT APPEARS TO BE RESTING EASILY, THE PT WAS MEDICATED FOR PAIN X2 TODAY, THE PT AT DINNER TIME WOULD NOT TAKE ANY FOD OR WATER WHEN OFFERED SHE PUSHED IT AWAY, PT WAS REPOSITIONED T/O THE DAY WOUND CARE WAS GIVEN ON THE LEFT HIP, CALL LIGHT IN REACH WILL CONTINUE TO MONITOR AND ASSSESS FOR CHANGES
--- NOTE | 2020-01-02 05:00 | NUR ---
SHIFT SUMMARY ASSUMED CARE OF PT AT 1900. PT WAS FIDGITING AND MOVING HER LEGS AROUND DURING SHIFT CHANGE. PT MEDICATED FOR ANXIETY AND PAIN PER EMAR. LATER DURING THE SHIFT AROUND 0200, PT WAS STARTING TO FIGET AND MAKE FACIAL EXPRESSIONS, PT MEDICATED FOR ANXIETY AND PAIN PER EMAR. NO ACUTE EVENTS DURING THE NIGHT. PT SLEPT MOST OF THE NIGHT. CALL LIGHT IN REACH, BED IN LOWEST POSTION, WILL CONTINUE TO MONITOR UNTIL DAYSHIFT NURSE ARRIVES.
--- NOTE | 2020-01-02 07:14 | NUR ---
pt appears to be comfortable at this time, appears to be breathing easily at this time
--- NOTE | 2020-01-02 11:07 | NUR ---
PT MEDICATED FOR PAIN AND ANXIETY, WOUND CARE GIVEN, PT REPOSTIONED
--- NOTE | 2020-01-02 13:11 | NUR ---
Pt resting in bed with her eyes closed. Pt is non responsive but appears comfortable. Spoke with Bedside RN Nelson and discussed case. Pt developed terminal restlessness las night and Pt was medicated for symptom management. Pt has been non responsive since. Nelson reports Pt is receiving comfort medications as needed. Attempted to call Pt's spouse with no success. Spouse's voicmail is not set up to leave messages. Called and spoke with Pt's sister in law Laury who is listed as a contact. Educated on Pt's condition. Laury will contact Pt's spouse and family will come into visit. Palliative Care will remain available.
--- NOTE | 2020-01-02 14:28 | NUR ---
PT MEDICATED FOR PAIN/ANXIETY FAMILY AT THE BEDSIDE, PT REPOSITIONED CALL LIGHT IN REACH WILL CONTINUE TO MONITOR AND ASSESS FOR CHANGES
--- NOTE | 2020-01-02 16:43 | NUR ---
Routine spiritual care note: Several visits with Mrs. Bahena today. This morning, she apeared non-responsive to voice or touch with only slight movements of her head. Breaths were quite shallow, but even. This afternoon, I met with her spouse, Gerald, and his mom at bedside. Gerald was tearful, but appropriate. Both told me stories of Vilma's kindness and life of service to others. They are non-jewish, but appeared to benefit from my facilitating story-telling, affirmation of obvious love, and gentle nearing education/veterans' counselor. Vilma's skin color has changed this afternoon. She has been well cared-for by Nelson, her RN today. She appears comfortable and very near end-of-life. I will remain available.
--- NOTE | 2020-01-02 17:21 | NUR ---
PT @ 1715 WAS COMFIRMED BY THE DISCHARGE DOOR OPERATOR SALLEY AND MYSELF, FAMILY IS AT THE BEDSIDE, , PALLIATIVE CARE, SPITITUAL CARE AND THE NURSING LICENSE AND PERMIT SPECIALIST WAS NOTIFIED
--- NOTE | 2020-01-02 17:34 | NUR ---
Multiple visits today including therapeutic supportive visit for family. Pt has been resting in bed and non responsive. Educated family on S/S Pt may experience during actively dying stage. Family reports plan to transport body to [facility] in [place] themselves. Family expresses appreciation of visit. Discussed case and plan with Pvc Monitorterrence Ellis, Bedside RN Nelson, Nursing Liquor Establishment Manager Dangelo, and shot hole shooter Alejandra. Shortly after visit with family, received call that Pt has . Conferenced with Pvc Monitorterrence Ellis who will make supportive visit with family. Palliative Care will remain available.
--- NOTE | 2020-01-02 18:07 | NUR ---
Present with family. Provided thereaputic listening and gentle bereavement genetic counselor. Family has selected [facility] for final arrangements. Vilma passed peacefully thanks to excellent nursing. Family expressed appreciation for compassionate care.
--- NOTE | 2020-01-02 18:17 | NUR ---
Supportive visit for family. Offered therapeutic listening along side Dock Boss Rhonda for family. Family has decided for [facility] to transport Pt. Nursing Supervisor [employer] Dangelo present with this decision and will arrange transportation. Allowed family to spend as much time as they preferred with . Escorted family out via transport chair.
--- NOTE | 2020-01-02 20:42 | NUR ---
SERVICE PICKED UP. BELONINGS TAKEN.
== END 2020-01-02 17:15 | DRG 871 ==
LOC: ER 14:18 → MEDS 18:45 → ICUW 18:45 → ICUE 18:45 → MEDS 11-29 13:52
PROVIDERS: Emergency Medicine; Family Medicine; Internal Medicine; Internal Medicine Critical Care Medicine; Internal Medicine Nephrology; Internal Medicine Pulmonary Disease; ADMIT Internal Medicine
PROC: 3E043XZ Introduction of Vasopressor into Central Vein, Percutaneous Approach (ICD-10-PCS; 2019-11-15)
PROC: 02HV33Z Insertion of Infusion Device into Superior Vena Cava, Percutaneous Approach (ICD-10-PCS; 2019-11-15)
PROC: 0W9G3ZZ Drainage of Peritoneal Cavity, Percutaneous Approach (ICD-10-PCS; principal; 2019-12-03)
DX: A41.9 Sepsis, unspecified organism (principal); R65.21 Severe sepsis with septic shock; N17.0 Acute kidney failure with tubular necrosis; N39.0 Urinary tract infection, site not specified; L03.116 Cellulitis of left lower limb; I48.20 Chronic atrial fibrillation, unspecified; R18.8 Other ascites; D68.9 Coagulation defect, unspecified; Z51.5 Encounter for palliative care; I12.9 Hypertensive chronic kidney disease with stage 1 through stage 4 chronic kidney disease, or unspecified chronic kidney disease; N18.3 Chronic kidney disease, stage 3 (moderate); D63.1 Anemia in chronic kidney disease; E03.9 Hypothyroidism, unspecified; K75.81 Nonalcoholic steatohepatitis (NASH); Z98.84 Bariatric surgery status; I95.9 Hypotension, unspecified
CPT/HCPCS: 36415; 36556; 49083; 51702; 71045; 73700; 73701; 74176; 76770; 80048; 80053; 80069; 80076; 80202; 81001; 81050; 82040; 82140; 82533; 83605; 83615; 83735; 84100; 84132; 84145; 84156; 84443; 85025; 85027; 85610; 85730; 86140; 86850; 86900; 86901; 86923; 87040; 87077; 87081; 87086; 87147; 87186; 87493; 92507; 92523; 93005; 93010; 96361-59; 96365-59; 96366-59; 96367-59; 97110; 97163; 97166; 97530; 97535; 99285-25; A9270; A9270-GY; C1751; J0690; J0696; J0881; J1720; J1940; J2185; J2405; J2543; J3370; J3475; J3480; J7030; J7040; J7050; J7060; J7120; P9016; P9041; P9046; Q0163; Q9967